=== PATIENT | male | born 1955 | race Caucasian/White ===

== ENCOUNTER → 2017-03-22 | Outpatient (REF) | payer OTHER ==
[2017-03-22 13:44] LABS: PERCENT SATURATION 36.4 % (19.7-37.4)
[2017-03-22 13:49] LABS: FOLATE 21.4 NG/ML (>5.4)
== END ==
LOC: M LAB REF 12:20
PROVIDERS: ATTEND Internal Medicine
DX: Z98.84 Bariatric surgery status (principal)

== ENCOUNTER 2017-05-02 03:08 | Emergency (ER) | payer OTHER ==
[~2017-05-02] VITALS: Ht 182.9 cm; Wt 115.7 kg
[2017-05-02] MEDS ORDERED: TETANUS/DIPHTHERIA TOX ADSORB ADULT 0.5ML SYR/VIAL (90714) IM ONE (03:30)
[2017-05-02] MEDS ORDERED: ceFAZolin SOD 1 GM in D5W MINI-BAG PLUS 50 ML IV ONE (03:30)
[2017-05-02 03:33] VITALS: BP 126/90
[2017-05-02] MEDS ORDERED: DERMABOND TOPICAL SKIN ADHESIVE TOP ONE (04:00)
[2017-05-02] MEDS ORDERED: LIDOCAINE W/EPINEPHRINE 1% 20ML VIAL SC ONE (04:00)
== END 2017-05-02 04:59 | disposition home or self-care (01) ==
LOC: EDBD 03:08 → M ED 04:52
DX: S41.111A Laceration without foreign body of right upper arm, initial encounter (principal); X99.9XXA Assault by unspecified sharp object, initial encounter; Y92.099 Unspecified place in other non-institutional residence as the place of occurrence of the external cause; Y93.9 Activity, unspecified; Y99.9 Unspecified external cause status; Z91.89 Other specified personal risk factors, not elsewhere classified
CPT/HCPCS: 12002; 90471; 90714; 96374; 99283; J0690

== ENCOUNTER 2018-06-27 15:20 | Emergency (ER) | payer OTHER ==
[2018-06-27] MEDS: ONDANSETRON 4MG/2ML VIAL (J2405) IV (16:16)
[2018-06-27] MEDS: NS 1,000 ML IV (16:16)
[2018-06-27 16:34] LABS: ANION GAP 11 MEQ/L (8-16); BLOOD UREA NITROGEN 15 MG/DL (7-18); CALCIUM LEVEL 9.1 MG/DL (8.8-10.2); CARBON DIOXIDE LEVEL 22 MEQ/L (21-32); CHLORIDE LEVEL 111 MEQ/L (98-107); CPK CREATINE PHOSPHOKINASE 123 U/L (39-308); CREATININE FOR GFR 1.41 MG/DL (0.70-1.30); GLOMERULAR FILTRATION RATE 54.4 (>49); GLUCOSE, FASTING 148 MG/DL (70-100); POTASSIUM SERUM 4.5 MEQ/L (3.5-5.1); SODIUM LEVEL 144 MEQ/L (136-145); TROPONIN I 0.06 NG/ML (< 0.10)
[2018-06-27 16:35] LABS: BASO # 0.1 10^3/uL (0.0-0.2); BASO % 0.5 % (0.0-1.0); CK-MB VALUE MASS 1.7 NG/ML (<3.6); EOS % 0.1 % (0.0-3.0); HEMATOCRIT 43.5 % (42.0-52.0); HEMOGLOBIN 14.4 g/dl (13.5-17.5); IMMATURE GRANULOCYTE % 0.4 % (0-3.0); LYMPH # 0.7 10^3/uL (1.5-4.5); LYMPH % 6.5 % (24.0-44.0); MB/CK RELATIVE INDEX 1.38 (< OR =4); MEAN CORPUSCULAR HEMOGLOBIN 31.2 pg (27.0-33.0); MEAN CORPUSCULAR HGB CONC 33.1 g/dl (32.0-36.5); MEAN CORPUSCULAR VOLUME 94.4 fl (80.0-96.0); MONO # 0.4 10^3/uL (0.0-0.8); MONO % 3.3 % (0.0-5.0); NEUTROPHILS # 10.1 10^3/uL (1.8-7.7); NEUTROPHILS % 89.2 % (36.0-66.0); PLATELET COUNT, AUTOMATED 219 10^3/uL (150-450); RED BLOOD COUNT 4.61 10^6/uL (4.30-6.10); RED CELL DISTRIBUTION WIDTH 13.1 % (11.5-14.5); WHITE BLOOD COUNT 11.3 10^3/uL (4.0-10.0)
[2018-06-27 16:55] LABS: KETONE, URINE AUTO RFX 2+ mg/dL (NEGATIVE); LEUKOCYTE ESTERASE UR AUTO RFX NEGATIVE (NEGATIVE); MUCUS, URINE RFX SMALL (NEGATIVE); NITRITE, URINE AUTO RFX NEGATIVE (NEGATIVE); RBC, URINE AUTO RFX 1 /HPF (0-3); SPECIFIC GRAVITY UR AUTO RFX 1.018 (1.002-1.035); SQUAM EPITHELIAL CELL UR AURFX 0 /HPF (0-6); WBC, URINE AUTO RFX 1 /HPF (0-3)
== END 2018-06-27 18:35 | disposition home or self-care (01) ==
LOC: M ED 15:20
DX: I48.91 Unspecified atrial fibrillation (principal); I10 Essential (primary) hypertension; E07.9 Disorder of thyroid, unspecified; N52.9 Male erectile dysfunction, unspecified; Z79.899 Other long term (current) drug therapy; Z79.82 Long term (current) use of aspirin; Z79.890 Hormone replacement therapy; Z91.048 Other nonmedicinal substance allergy status
CPT/HCPCS: J2405

== ENCOUNTER → 2021-04-14 | Outpatient (REF) | payer OTHER ==
[~2021-04-14] MED LIST: ASPI-1 PO; CART180C3 PO; DULO1CAP5 PO; LEVO150T7 PO; MULTTAB22 PO; MYCO500T PO; OMEP1CAP73 PO; VIAG100T PO; VITA50005 PO; ZOLP10TA2 PO
== END ==
LOC: M LAB REF 16:23
PROVIDERS: ATTEND Internal Medicine
DX: Z98.84 Bariatric surgery status (principal)

== ENCOUNTER 2021-09-27 09:48 | Day surgery (SDC) | payer MEDICARE, OTHER ==
[~2021-09-27] VITALS: Ht 185.4 cm; Wt 104.3 kg
--- OUTSIDE RECORDS SUMMARY | 2021-09-27 09:55 | CCD | Continuity of Care Document ---
Author Author Ollie Jm Florian Organization Unknown Address [address] [place] [address] Phone Unavailable Care Team Providers Care Pediatric Psychologist Name Role Phone Kirt Millan MD AUTM [phone] Ralph Bolivar MD AUTM [phone] Nikki Middleton MD AUTM [phone] Alfonzo Eastman JR, MD AUTM Unavailable Problems Active Problems Provider Date Atrial fibrillation Alfonzo Eastman MD Onset: 07/21/2012 Hypothyroidism Alfonzo Eastman MD Onset: 07/21/2012 Pure hypercholesterolemia Alfonzo Eastman MD Onset: 07/21 Insomnia Alfonzo Eastman MD Onset: 07/21/2012 Obstructive sleep apnea syndrome Alfonzo Eastman MD Onset : 07/21/2012 Obesity Alfonzo Eastman MD Onset: 07/21/2012 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 Myasthenia gravis Alfonzo Eastman MD Onset: 01/21/2014 Disorder of lung Alfonzo Eastman MD Onset: 01/21/2014 Note: Chest CT 10/10 Solitary Pulmonary Nodule On Radiological/Other Exam Alfonzo Eastman MD Onset: 01/23/2014 Social History Type Date Description Comments Sex Unknown ETOH Use Consumes 1 glass of wine per day Tobacco Use Start: Unknown Patient has never smoked Allergies and adverse reactions Active Allergies Criticality Reaction | Severity Comments Date Niaspan Unable to assess criticality 09/21/2010 Medications Active Medications SIG Qnty Indications Ordering Provide r Date Levothyroxine Sodium 50mcg Tablets 1 by mouth every day 90tabs Alfonzo Eastman MD 08/13/2020 Cartia XT 180mg Caps ER 24HR Take One Tablet By Mouth Every Day. 90caps Jessica Montes De Oca DO 05/08 Shingrix 50mcg/0.5ML Suspension Re c administer 0.5 milliliters intramuscular, repeat in 2 to 6 months 2units Alfonzo Eastman MD 01/05/2019 Clotrimazole/Betamethasone Dipropionate 1-0.05% Cream twice a day to rash on right great toe as needed 45gm Alfonzo Eastman MD 01/05/2019 Viagra 100mg Tablets Take 1/2 Tablet By Mouth as Directed 6tabs Alfonzo Eastman MD 10/19/20 16 Vitamin D3 Super Strength 2000Unit Tablets 1 by mouth every day 90tabs Juan Goetz 02/20/2016 Multivitamins Tablets 1 po q d Alfonzo Eastman MD 07/21/2012 Vitamin B-12 CR 1000mcg Tablets ER 1 po qd Alfonzo Eastman MD 07/21/2012 Calcium 500+D High Potency [id number] Tablets 1 po bid Alfonzo Eastman MD [address] 1 po qd 30tabs Alfonzo Eastman MD 07/21/[address] Take One Capsule By Mouth Twice A Day 60pablo Eastman MD 07/21/2012 Westcort 0.2% Ointment apply to affected area Tid For 10 Days 60gm Gena Lemon, NIMISHA 11/[address] Part take one capsule by mouth twice a day 60pablo Eastman MD 10/03/2008 Ambien 10mg Tablets take 1/2 -1 tablet by mouth at bedtime as needed maximum daily dose = 1 30tabs Alfonzo Eastman MD 03/29/2008 Mycophenolate Mofetil 500mg Tablet s twice daily Unknown Medications Administered in Office Medication SIG Qnty Indications Ordering Provider Date Immunization Adminstration,1 Vaccine/Tox oid Injection Alfonzo Eastman MD 2019 Depo-Medrol Injection Injection KAYLAH Alcantara 05/11/2017 Depo-Medrol Injection Injection Raúl CarmonaKAYLAH 08/20/2016 Administration Of Flu Vaccine Inj ection Alfonzo Eastman MD 11/01/2001 Immunizations CPT Code Status Date Vaccine Lot # [id number] Given 08/13/2020 Influenza Vaccin e Quadrivalent Preser/Antibiotic Free Im Use [id number] U-Flu Given 09/15/2019 Influenza,Unspecified 75639 Given 09/15/2019 Shingrix Zoster Vaccine (HZV), Recombinant, Subunit, Adjuvanted 00945 Given 09/29/2017 Influenza Vaccin e Quadrivalent Preser/Antibiotic Free Im Use [id number] Q2037 Given 09/02/2016 Fluvirin Virus Vaccine Q2037 Given 10/21/2015 Fluvirin Virus Vaccine 81349 01 Q2037 Given 09/14/2013 Fluvirin Virus Vaccine 44112 01 Q2037 Given 08/24/2012 Fluvirin Virus Vaccine 48306 Given 09/21/2010 Influenza Virus Vaccine 71643 Given 09/05/2009 Adacel- Tetanus Diphtheria P ertussis 99665 Given 09/04/2009 Influenza Virus Vaccine 69955 Given 10/03/2008 Influenza Virus Vaccine 15730 Given 03/28/2008 Zoster Vaccine 68566 Given 09/15/2007 Influenza Virus Vaccine 55802 Given 11/01/2001 Influenza Virus Vaccine Vital Signs Date Vital Result Comment 04/15/2021 2:57pm BP Systolic 112 mmHg BP Diastolic 68 mmHg Heart Rate 72 /min Height 72.25 inches 6'0.25" Weight 259.00 lb BMI (Body Mass Index) 34.9 kg/m2 12/16/2020 2:08pm Height 72.25 inches 6'0.25" Weight 273.00 lb BMI (Body Mass Index) 36.8 kg/m2 Results Test Acquired Date Facility Test Result H/L Range Note Laboratory test finding 09/15/2021 [facility] [employer] Digital Content Coordinator: SHANE Nielsen [id number] [phone] A1c <pending> Laboratory test finding 09/15/2021 [facility] [employer] Digital Content Coordinator: SHANE Nielsen [id number] [phone] TSH <pending> Vitamin B12 & Folate 04/14/2021 [facility] [address], [place] [id number] [phone] Vitamin B12 Level 477 pg/mL Normal 1 Folate 6.0 NG/ML Normal 2 Complete Blood Count 04/14/2021 [facility] [employer] [employer] Digital Content Coordinator: [place] [address] [phone] WBC 6.8 x10*3/UL 4.1 - 10.9 RBC 5.10 x10*6/UL 4.20 - 6.30 Hemoglobin 15.7 g/dL 12.0 - 18.0 Hematocrit 46.4 % 37.0 - 51.0 MCV 91.0 fL 80.0 - 97.0 MCH 30.8 pg 26.0 - 32.0 MCHC 33.8 g/dL 31.0 - 38.0 RDW 13.1 % 11.6 - 13.7 PLT 254 x10*3/UL 140 - 440 MPV 9.4 FL 7.8 - 11.0 Lymph % 19.7 % 10.0 - 58.5 Mid % 5.4 % 1.7 - 9.3 Neut % 74.9 % 37.0 - 92.0 Lymph # 1.3 x10*3/UL 0.6 - 4.1 Mid # 0.4 x10*3/UL 0.1 - 0.6 Neut # 5.1 x10*3/UL 2.0 - 7.8 A1c 04/14/2021 [facility] Digital Content Coordinator: [place] [address] [phone] Hba1c 5.6 % <5.7 3 Est Avg Glucose 114 mg/dL High 60 - 110 Comprehensive Chem Profile 04/14/2021 [facility] Digital Content Coordinator: [place] [address] [phone] Glucose 116 mg/dL High 74 - 99 4 BUN 14 mg/dL 7 - 18 Creatinine 1.4 mg/dL High 0.6 - 1.3 Sodium 143 mEq/L 136 - 145 Potassium 4.6 mEq/L 3.5 - 5.1 Chloride 107 mEq/L 98 - 107 Carbon Dioxide 27 mEq/L 21 - 32 Calcium 9.3 mg/dL 8.5 - 10.1 Alk. Phosphatase 93 mg/dL 46 - 116 Total Bilirubin 1.4 mg/dL High 0.2 - 1.0 Ast (Sgot) 35 U/L 15 - 37 Alt (SGPT) 47 U/L 12 - 78 Albumin 4.3 g/dL 3.4 - 5.0 Total Protein 7.8 g/dL 6.4 - 8.2 A/G Ratio 1.23 CALC 1.00 - 1.90 GFR 51 mL/min Low >60 GFR >= 60 mL/min >60 5 Laboratory test finding 04/14/2021 [facility] [employer] Digital Content Coordinator: [place] [address] [phone] Thyroid Stimulating Hormone 0.04 uIU/mL Low 0.3 6 - 3.74 Laboratory test finding 04/14/2021 [facility] [employer] Digital Content Coordinator: [place] [address] [phone] Vitamin D 25-Hydroxy 20.6 ng/ml Low 24.0 - 80.0 6 1 VITAMIN B12 NORMAL RANGE NORMAL 247 - 911 PG/ML INDETERMINATE 211 - 246 PG/ML DEFICIENT LESS THAN 211 PG/ML 2 FOLATE NORMAL RANGE NORMAL GREATER THAN 5.4 NG/ML INDETERMINATE 3.4-5.4 NG/ML DEFICIENT LESS THAN 3.4 NG/ML 3 Lab Result Notes: Pre-Diabetes 5.7 - 6.4 % Diabetes = or > 6.5% 4 100-125 mg/dL PRE-DIABET ES/FASTING >126 mg/dL DIABETES/FASTING 5 CHRONIC KIDNEY DISEASE STAGI NG PER NKF STAGE I & II GFR >= 60 NORMAL TO MILDLY DECREASED STAGE III GFR 30-59 MODERATELY DECREASED STAGE IV GFR 15-29 SEVERELY DECREASED STAGE V GFR <15 VERY LITTLE GFR LEFT ESRD GFR <15 ON PROJECT FACILITATOR 6 This test was performed [employer] Vitamin D immunoassay kit. Values obtained with different assay methods should not be used interchangeably. Procedures Date Code Description Status 04/15/2021 45236 Office/Outpatient Established Mo d MDM 30-39 Min Completed 04/15/2021 34550 EKG/Interpretation & Report Comp leted 09/19/2017 [id number] Colonoscopy Completed 10/12/2013 [id number] Colonoscopy Completed 10/24/2006 [id number] Colonoscopy Completed Medical Devices Description No Information Available Encounters Type Date Location Provider Dx Diagnosis Office Visit 04/15/2021 3:00p [facility] Alfonzo Eastman MD E03.9 Hypothyroidism, unspecified E78.00 Pure hypercholesterolemia, u nspecified R73.09 Other abnormal glucose I48.21 Permanent atrial fibrillatio n Z79.82 nursing home (current) use of a spirin G70.00 Myasthenia gravis without (a cute) exacerbation G47.33 Obstructive sleep apnea (fartun lt) (pediatric) Z91.14 Patient's other noncomplianc e with medication regimen E66.01 Morbid (severe) obesity due to excess calories Z68.35 Body mass index [BMI] 35.0-3 5.9, adult Assessments Date Code Description Provider 04/15/2021 E03.9 Hypothyroidism, unspecified Raphael cassidy Eastman MD 04/15/2021 E78.00 Pure hypercholesterolemia, unspe cified Alfonzo Eastman MD 04/15/2021 R73.09 Other abnormal glucose Alfonzo Eastman MD 04/15/2021 I48.21 Permanent atrial fibrillation Co llins Aditya Eastman MD 04/15/2021 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 Alfonzo Eastman MD 04/15/2021 G70.00 Myasthenia gravis without (acute ) exacerbation Alfonzo Eastman MD 04/15/2021 G47.33 Obstructive sleep apnea (adult) (pediatric) Alfonzo Eastman MD 04/15/2021 Z91.14 Patient's other noncompliance wi th medication regimen Alfonzo Eastman MD 04/15/2021 E66.01 Morbid (severe) obesity due to e xcess calories Alfonzo Eastman MD 04/15/2021 Z68.35 Body mass index [BMI] 35.0-35.9, adult Alfonzo Eastman MD 04/14/2021 Z98.84 Bariatric surgery status Alfonzo Eastman MD 04/14/2021 Z98.84 [facility] E78.00 Pure hypercholesterolemia, unspe cified Alfonzo Eastman MD 04/14/2021 E78.00 Pure hypercholesterolemia, unspe cified Lab Schedule 04/14/2021 R73.09 Other abnormal glucose Alfonzo Eastman MD 04/14/2021 R73.09 Other abnormal glucose Lab Sched ule 04/14/2021 I48.21 Permanent atrial fibrillation Co llcassidy Eastman MD 04/14/2021 I48.21 Permanent atrial fibrillation La b Schedule 04/14/2021 E55.9 Vitamin D deficiency, unspecifie d Alfonzo Eastman MD 04/14/2021 E55.9 Vitamin D deficiency, unspecifie d Lab Schedule Plan of Treatment No Information Available Functional Status Description No Information Available Mental Status Description No Information Available Referrals Refer to Reason for Referral Status Appt Date [facility] Pulmonary Medicine CONSULT FOR SLEEP STUDY FOR AMADO Closed [address] [place] [address] [phone]
--- OUTSIDE RECORDS SUMMARY | 2021-09-27 09:55 | CCD | Continuity of Care Document ---
Author Author mJ SMITH M.D. Organization Unknown Address [address] [place] [address] Phone [phone] Care Team Providers Care Physically Impaired Teacher Name Role Phone Alfonzo Eastman M.D. [facility] [phone] Problems Active Problems Provider Date Myasthenia gravis Nikki Smith M.D. Onset: 07/08/2014 Social History Type Date Description Comments Sex Unknown Tobacco Use Start: Unknown Patient has never smoked Allergies, Adverse Reactions, Alerts Active Allergies Criticality Reaction | Severity Comments Date NKDA Unable to assess criticality 07/08/2014 Adhesives Unable to assess criticality 07/08/2014 Medications Active Medications SIG Qnty Indications Ordering Provide r Date Omeprazole 20mg Capsules DR take one tab twice a day. 60caps Nikki Smith M.D. 05/13/2014 Pyridostigmine [place] 60mg Tablet s take one tablet three to four times per day as needed for weakness. 120tadevon Smith M.D. 10/22/2013 Cellcept 500mg Tablets take 1 tablets twice a day. 180tadevon Smith M.D. 10/22/2013 Immunizations Description No Information Available Vital Signs Date Vital Result Comment 08/17/2021 1:49pm Respiratory Rate 12 /min Height 72.5 inches 6'0.50" Weight 225.00 lb BMI (Body Mass Index) 30.1 kg/m2 Wing Body Weight 178 lb 05/04/2021 1:41pm Respiratory Rate 12 /min Height 72.5 inches 6'0.50" Weight 250.00 lb BMI (Body Mass Index) 33.4 kg/m2 Wing Body Weight 178 lb Results Description No Information Available Procedures Date Code Description Status 08/17/2021 00451 Office/Outpatient Established Mo d MDM 30-39 Min Completed 05/04/2021 05679 Office/Outpatient Established Mo d MDM 30-39 Min Completed Medical Devices Description No Information Available Encounters Type Date Location Provider Dx Diagnosis Office Visit 08/17/2021 1:30p [facility] Nikki wolf M.D. G70.00 Myasthenia gravis without (acute) exacer bation Office Visit 05/04/2021 1:30p [facility] Nikki wolf M.D. G70.00 Myasthenia gravis without (acute) exacer bation Assessments Date Code Description Provider 08/17/2021 G70.00 Myasthenia gravis without (acute ) exacerbation Nikki Smith M.D. 05/04/2021 G70.00 Myasthenia gravis without (acute ) exacerbation Nikki Smith M.D. Plan of Treatment Future Appointment(s):* 12/01/2021 11:45 am - Nikki Smith M.D. at [facility] Functional Status Description No Information Available Mental Status Description No Information Available Referrals Description No Information Available
--- OUTSIDE RECORDS SUMMARY | 2021-09-27 09:55 | CCD ---
Continuity of Care Document (CCD) Created on: 07/14/2021 Taylor Jm External Reference #: [id number] : [id number] Sex: Male Author Author Jm DASILVA DC Organization Unknown Address [address] [place] [address] [place] [address] Phone [phone] Care Team Providers Care Patron Attendant Name Role Phone Alfonzo Eastman MD [facility] [phone] Problems Description No Information Available Social History Type Date Description Comments Sex Unknown ETOH Use Currently consumes alcohol Tobacco Use Start: Unknown Patient has never smoked Tobacco Use Start: Unknown The Patient Has Never Vaped Smoking Status Reviewed: 06/28/21 The Patient Has Never Vaped Allergies, Adverse Reactions, Alerts Description No Known Drug Allergies Medications Active Medications SIG Qnty Indications Ordering Provide r Date Levothyroxine Sodium 150mcg Tablet s take one tab per day Unknown Cartia XT 180mg Caps ER 24HR daily Unknown Duloxetine HCL 30mg Caps DR Part bid Unknown Viagra 100mg Tablets use as d irected Unknown Zolpidem Tartrate 10mg Tablets 1 every night as needed Unknown Mycophenolate Mofetil 500mg Tablet s 2 tabs po bid Unknown History Medications Doxycycline Monohydrate 100mg Caps ules 1 cap by mouth twice a day for 10 days 20caps L03.312 Col wilmer Eastman JR., M.D. 06/28/2021 - 07/08/2021 Immunizations Description No Information Available Vital Signs Date Vital Result Comment 06/28/2021 8:11am BP Systolic 118 mmHg BP Diastolic 20 mmHg Heart Rate 81 /min Respiratory Rate 15 /min O2 % BldC Oximetry 100 % Body Temperature 96.6 F Weight 230.00 lb Height 72 inches 6'0" BMI (Body Mass Index) 31.2 kg/m2 Pain Level 1 06/27/2018 2:25pm BP Systolic 161 mmHg BP Diastolic 95 mmHg Heart Rate 64 /min Respiratory Rate 18 /min O2 % BldC Oximetry 98 % Body Temperature 101.0 F Weight 213.00 lb Height 72 inches 6'0" BMI (Body Mass Index) 28.9 kg/m2 Pain Level 8 Results Description No Information Available Procedures Date Code Description Status 06/28/2021 34185 Office/Outpatient Established Lo w MDM 20-29 Min Completed Medical Devices Description No Information Available Encounters Type Date Location Provider Dx Diagnosis Office Visit 06/28/2021 8:00a Main Office Lino Martin, PAlfonso R2 1 Rash and other nonspecific skin eruption L03.312 Cellulitis of back [any part except buttock] Assessments Date Code Description Provider 07/14/2021 Z20.828 Contact with and ([place] spected) exposure to other viral communicable diseases ALVARADO Villegas 06/28/2021 R21 Rash and other nonspecific skin eruption Ana PonceATrevor 06/28/2021 L03.312 Cellulitis of back [any part exc ept buttock] Chanel Ponce Plan of Treatment No Information Available Functional Status Description No Information Available Mental Status Description No Information Available Referrals Description No Information Available
--- OUTSIDE RECORDS SUMMARY | 2021-09-27 09:55 | CCD | Continuity of Care Document ---
Author Author Jm SMITH M.D. Organization Unknown Address [address] [place] [address] Phone [phone] Care Team Providers Care Electrical Hardware Engineer Name Role Phone Alfonzo Eastman M.D. [facility] [phone] Problems Active Problems Provider Date Myasthenia gravis [...] day. 60caps Nikki Smith M.D. 05/13/2014 Pyridostigmine [place] 60mg Tablet s take one tablet three to four times per day as needed for weakness. 120tadevon Smith M.D. 10/22/2013 Cellcept 500mg Tablets take 1 tablets twice a day. 180tadevon Smith M.D. 10/22/2013 Immunizations Description No Information Available Vital Signs Date Vital Result Comment 08/17/2021 1:49pm Respiratory Rate 12 /min Height 72.5 inches 6'0.50" Weight 225.00 lb BMI (Body Mass Index) 30.1 kg/m2 [place] Body Weight 178 lb 05/04/2021 1:41pm Respiratory Rate 12 /min Height 72.5 inches 6'0.50" Weight 250.00 lb BMI (Body Mass Index) 33.4 kg/m2 [place] Body Weight 178 lb Results Description No Information Available Procedures Date Code Description Status 08/17/2021 59675 Office/Outpatient Established Mo d MDM 30-39 Min Completed 05/04/2021 56694 Office/Outpatient Established Mo d MDM 30-39 Min Completed Medical Devices Description No Information Available Encounters Type Date Location Provider Dx Diagnosis Office Visit 08/17/2021 1:30p [place] [facility] [place] Nikki wolf M.D. G70.00 Myasthenia gravis without (acute) exacer bation Office Visit 05/04/2021 1:30p [facility] [place] Nikki wolf M.D. G70.00 Myasthenia gravis without (acute) exacer bation Assessments Date Code Description Provider 08/17/2021 G70.00 Myasthenia gravis without (acute ) exacerbation Nikki Smith M.D. 05/04/2021 G70.00 Myasthenia gravis without (acute ) exacerbation Nikki Smith M.D. Plan of Treatment No Information Available Functional Status Description No Information Available Mental Status Description No Information Available Referrals Description No Information Available
--- OUTSIDE RECORDS SUMMARY | 2021-09-27 09:55 | CCD | Continuity of Care Document ---
Author Author Jm WELLS F.N.P. Organization Unknown Address [address], [address] [place] [address] Phone [phone] Care Team Providers Care Front Office Representative Name Role Phone Alfonzo Eastman M.D. [facility] [phone] Problems Description No Information Available Social History Type Date Description Comments Sex Unknown Tobacco Use Start: Unknown Never Smoked Cigarettes ETOH Use Drinks 2 Alcoholic Beverages Per Day Sun Exposure moderate amount of sun exposure Sun Exposure Has never used tanning bed Sun Exposure Has experienced blistering from sunburns Sun Exposure Uses > 30 SPF Allergies and adverse reactions Active Allergies Criticality Reaction | Severity Comments Date Adhesives Unable to assess criticality 10/19/2010 Medications Active Medications SIG Qnty Indications Ordering Provide r Date Cymbalta Unknown Levothyroxine Sodium Unknown Zolpidem Tartrate Unknown 000 Aspirin Unknown Omeprazole Unknown Mycophenolate Mofetil 500mg Tablet s Take One Tablet By Mouth Twice A Day Unknown Duloxetine HCL 30mg Caps DR Part Take One Capsule By Mouth Twice A Day Unknown Immunizations Description No Information Available Vital Signs Date Vital Result Comment 08/25/2021 11:49am BP Systolic 147 mmHg BP Diastolic 95 mmHg Heart Rate 75 /min Weight 225.00 lb 11/05/2019 1:58pm BP Systolic 130 mmHg BP Diastolic 78 mmHg Results Description No Information Available Procedures Date Code Description Status 08/25/2021 81711 Office/Outpatient Established Mo d MDM 30-39 Min Completed Medical Devices Description No Information Available Encounters Type Date Location Provider Dx Diagnosis Office Visit 08/25/2021 12:00p Main Office Rose Marie O'caprice, F.N.P. D22.5 Melanocytic nevi of trunk L81.4 Other melanin hyperpigmentat ion D17.1 Benign lipomatous neoplasm o f skin, subcu of trunk Z12.83 Encounter for screening for malignant neoplasm of skin Assessments Date Code Description Provider 08/25/2021 D22.5 Melanocytic nevi of trunk Kayla Pastranajared [facility] 08/25/2021 D22.5 Melanocytic nevi of trunk Sade Wells, F.N.P. 08/25/2021 L81.4 Other melanin hyperpigmentation Kayla Pastranajared [facility] 08/25/2021 L81.4 Other melanin hyperpigmentation Rose Marie Wells, F.N.P. 08/25/2021 D17.1 Benign lipomatous ne oplasm of skin and subcutaneous tissue of trunk Kayla Pastranajared [facility] 08/25/2021 D17.1 Benign lipomatous ne oplasm of skin and subcutaneous tissue of trunk Rose Marie Wells, F.N.P. 08/25/2021 Z12.83 Encounter for screening for prabhakar gnant neoplasm of skin Kayla Pastranaend, [facility]- 08/25/2021 Z12.83 Encounter for screening for prabhakar gnant neoplasm of skin Rose Marie Wells, F.N.P. Plan of Treatment Future Appointment(s):* 2022 12:45 pm - Rose Marie Wells F.N.P. at Main Office 08/25/2021 - Rose Marie Wells, F.N.P.* D22.5 Melanocytic nevi of trunk* Comments:* Nevus on back appears healthy. Monitor for changes. DF - reassurance. Sun protection and sunscreen use discussed. Literature given on monthly self skin evaluations. Should any moles change in shape or color, itch, bleed or burn, pt will contact office for evaluation sooner than their interval appointment. * L81.4 Other melanin hyperpigmentation* Comments:* Solar lentigines - reassurance.Discussed that solar lentignes appear from the sun that was received years ago. * D17.1 Benign lipomatous neoplasm of skin and subcutaneous tissue of trunk* Comments:* Discussed diagnosis.Nonsymptomatic - reassurance.Call with any problems. * Z12.83 Encounter for screening for malignant neoplasm of skin* Comments:* See above. * Follow up:* Yearly/PRN- [facility] Functional Status Description No Information Available Mental Status Description No Information Available Referrals Description No Information Available"
--- OUTSIDE RECORDS SUMMARY | 2021-09-27 09:55 | CCD ---
Author Author Kirt Millan MD [facility] Organization Kirt Millan MD [facility] Address [address] [address] Phone Care Team Providers Care Retail Solar Advisor Name Role Phone Monty BOJORQUEZ, CHARISMA, Kirt Kumari Unavailable [phone] Raiza BOSTON MD, Alfonzo [place] PP [phone] Reason for Referral No Reason for Referral Recorded Problems Includes: Active, inactive, and resolved Problems All Visits Onset Date - Time Resolved Date - Time Provider Co ndition Status Vitreous Disorders Degeneration 10/09/2015 - 12:00AM Kirt Millan MD, FACS Active Vitreous Floaters Both Eyes 09/30/2014 - 12:00AM Kirt Millan MD, FACS Inactive Note: Unchanged Eyelid Dermatochalasis Both Eyes 02/14/2014 - 12:00AM Kirt Millan MD, FACS Inactive Note: Unchanged - upper lids Myasthenia Gravis 10/18/2013 - 12:00AM Kirt Mckeon MD, FACS Active Note: Unchanged Strabismus Non-paralytic Hypertropia Intermittent Left Eye 0 07/12/2013 - 12:00AM Unknown - Unknown Kirt Millan MD, FACS Resolved Note: Unchanged Strabismus Paralytic Fourth Nerve Palsy Left Eye 07/12/2013 - 12:00AM Unknown - Unknown Kirt Millan MD, FACS Resolved Note: Unchanged Conjunctivitis Chronic Allergic 03/21/2013 - 12:00AM Kirt Millan MD, FACS Active Note: Unchanged Presbyopia 03/21/2013 - 12:00AM Kirt Millan MD, FACS Active Note: Unchanged Strabismus Non-paralytic Heterophoria Esophoria 03/21/2013 - 12:00AM Unknown - Unknown Kirt Millan MD, FACS Resolved Note: Unchanged Dry Eye Syndrome Both Eyes 03/21/2013 - 12:00AM Kirt Millan MD, FACS Active Note: Unchanged Plan of Treatment Future Appointments Date Time Location Provider 1 Year Follow-Up 10/13/2021 8:15AM Kirt Millan MD [facility] Kirt Millan MD, FACS Findings Encounter Date Ordered Transition in care, clinical summary provided 1 Month Follow-Up with Kirt Millan MD, FACS 07/12/2013 Requested Referred to: Dr. Barrow- Neurologist (Referr ing Out Letter re-faxed) 1 Month Follow-Up with Kirt Millan MD, FACS 07/12/2013 Ordered referred to primary care physician Dr. Jim pinto- MRI Brain 3 MO FOLU OR LESS with Kirt Millan MD, FACS 06/12/2013 Ordered Transition in care, clinical summary provided 3 MO FOLU OR LESS with Kirt Millan MD, FACS 06/12/2013 Requested Referred to: Dr. Bolivar / Danial 3 MO FOLU OR L ESS with Kirt Mckeon MD, FACS 06/12/2013 Assessments Includes: Assessments for all patient encounters Findings Encounter Date Chronic allergic conjunctivitis 1 Year Follow-Up with Kirt Millan MD, FACS 10/10/2020 Dry eye syndrome of both eyes 1 Year Follow-Up with yAush Millan MD, FACS 10/10/2020 Myasthenia gravis 1 Year Follow-Up with Kirt paul MD, FACS 10/10/2020 Vitreous degeneration 1 Year Follow-Up with Kirt brown MD, FACS 10/10/2020 Chronic allergic conjunctivitis 1 Year Follow-Up with Kirt Millan MD, FACS 10/08/2019 Dry eye syndrome of both eyes 1 Year Follow-Up with Ayush Millan MD, FACS 10/08/2019 Myasthenia gravis 1 Year Follow-Up with Kirt paul MD, FACS 10/08/2019 Chronic allergic conjunctivitis 1 Year Follow-Up with Kirt Millan MD, FACS 10/17/2018 Dry eye syndrome of both eyes 1 Year Follow-Up with Ayush Millan MD, FACS 10/17/2018 Myasthenia gravis 1 Year Follow-Up with Kirt paul MD, FACS 10/17/2018 Chronic allergic conjunctivitis 1 Year Follow-Up with Kirt Millan MD, FACS 10/14/2016 Dry eye syndrome of both eyes 1 Year Follow-Up with Ayush Millan MD, FACS 10/14/2016 Vitreous degeneration 1 Year Follow-Up with Kirt brown MD, FACS 10/14/2016 Chronic allergic conjunctivitis 1 Year Follow-Up with Kirt Millan MD, FACS 10/09/2015 Dry eye syndrome of both eyes 1 Year Follow-Up with Ayush Millan MD, FACS 10/09/2015 Myasthenia gravis 1 Year Follow-Up with Kirt paul MD, FACS 10/09/2015 Vitreous degeneration 1 Year Follow-Up with Kirt brown MD, FACS 10/09/2015 Chronic allergic conjunctivitis 6 Month Follow-Up with Kirt Millan MD, FACS 09/30/2014 Dermatochalasis of both eyes of both upper eyelids 6 Month Follow-Up with Kirt Millan MD, FACS 09/30/2014 Dry eye syndrome of both eyes 6 Month Follow-Up with Mohan Millan MD, FACS 09/30/2014 Myasthenia gravis 6 Month Follow-Up with Kirt chery MD, FACS 09/30/2014 Vitreous floaters in both eyes 6 Month Follow-Up with Kirt Millan MD, FACS 09/30/2014 Dermatochalasis of both eyes 4 Month Follow-Up with Ayush Millan MD, FACS 02/14/2014 Esophoria 4 Month Follow-Up with Kirt chery MD, FACS 02/14/2014 Myasthenia gravis 4 Month Follow-Up with Kirt chery MD, FACS 02/14/2014 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 3 MO FOLU O R LESS with Kirt Millan MD, FACS 10/18/2013 Myasthenia gravis 3 MO FOLU OR LESS with Kirt chery MD, FACS 10/18/2013 Dermatochalasis of both eyes 1 Month Follow-Up with Ayush Millan MD, FACS 07/12/2013 Esophoria of both eyes 1 Month Follow-Up with Kirt Hunter MD, FACS 07/12/2013 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 1 Month Fol low-Up with Kirt Millan MD, FACS 07/12/2013 Intermittent hypertropia of the left eye 1 Month Follo w-Up with Kirt Mckeon MD, FACS 07/12/2013 Intermittent hypertropia of the left eye 3 MO FOLU OR LESS with Kirt Mckeon MD, FACS 06/12/2013 Chronic allergic conjunctivitis 6 Month Follow-Up with Kirt Millan MD, FACS 03/21/2013 Dermatochalasis of both eyes 6 Month Follow-Up with Ayush Millan MD, FACS 03/21/2013 Dermatochalasis of the left upper eyelid 6 Month Follo w-Up with Kirt Mckeon MD, FACS 03/21/2013 Dermatochalasis of the right upper eyelid 6 Month Foll ow-Up with Kirt Mckeon MD, [facility] 03/21/2013 Dry eye syndrome of both eyes 6 Month Follow-Up with Mohan Millan MD, FACS 03/21/2013 Esophoria 6 Month Follow-Up with Kirt chery MD, [facility] 03/21/2013 Presbyopia 6 Month Follow-Up with Kirt chery MD, [facility] 03/21/2013 Vitreous floaters in both eyes 6 Month Follow-Up with Kirt Millan MD, [facility] 03/21/2013 Instructions Instructions not supported for this document typeNo Instructions Recorded Medical Equipment - Implanted Devices Includes: Current and historical DevicesNo Medical Equipment Recorded Medications Includes: Current and historical Medications Current Medications (continue as prescribed) Mycophenolate Mofetil 500 MG Tablet 10/09/2015 Prov ider: Diagnosis: Omeprazole 20 MG Tablet Delayed Release 10/09/2015 Provider: Diagnosis: Cymbalta 30 MG OR CPEP 03/21/2013 Provider: Diagnosis: Aspirin 325 MG OR TABS 03/21/2013 Provider: Diagnosis: Zolpidem Tartrate 10 MG OR TABS 03/21/2013 Provider : Diagnosis: Levothyroxine Sodium 50 MCG OR TABS 03/21/2013 Prov ider: Diagnosis: Vitamin D2 10 MCG (400 UNIT) OR TABS 03/21/2013 Pro vider: Diagnosis: 1.25 mg per month Past Medications on file Omeprazole 20 MG OR TBEC 03/21/2013 - 10/09/2015 Provider: Diagnosis: Medications Administered Includes: Administered Medications in patient's chartNo Administered Medications Recorded Vital Signs Includes: Vital Signs from 08/22/2020 through 08/22/2021No Vital Signs Recorded For Specified Dates Results Includes: Results from 08/22/2020 through 08/22/2021No Results Recorded For Specified Dates History of Present Illness History of Present Illness not supported for this document typeNo History of Present Illness Recorded Social History Description Last Updated Not using alcohol 10/10/2020 No tobacco use 10/10/2020 Not using drugs 10/10/2020 Smoking status : Never smoker 10/10/2020 Never smoked 10/08/2019 Alcohol 03/21/2013 Procedures and Surgical History Includes: Procedures from 08/22/2020 through 08/22/2021 Procedures Code Diagnosis Performing Provider Service Location Service Date Intermediate Eye Exam Established Patient [id number] Myasthenia gravis without (acute) exacerbation, Other chronic allergic conjunctivitis, Dry eye syndrome of bilateral lacrimal glands, Vitreous degeneration, bilateral Kirt Millan MD, FACS Kirt Millan MD [facility] 10/10/2020 Surgical History Last Updated Surgical / procedural history : Gastric Bypass (2009), Appendectomy, Fissure Surgery 10/08/2019 Medical History Includes: Medical History in patient's chart Description Last Updated Reported medical history : Myasthenia Gr natan, A-Fib controlled with ASA, Sleep Apnea with CPAP, Depression, Deviated Septum, Reflux 12/13/2014 No recent change in medical history 02/14/2014 Currently wearing eyeglasses 10/18/2013 History of hypothyroidism 10/18/2013 LASIK surgery both eyes 07/12/2013 Gastric Bypass - 2009 ~Appendectomy ~Fissure Surgery 03/21/2013 History of arthritis 03/21/2013 Family History Includes: Family History in patient's chart Description Last Updated Maternal history of cataract 10/10/2020 Paternal history of arthritis 10/10/2020 Paternal history of diabetes mellitus 10/10/2020 Paternal history of family history of cancer 0 Paternal history of heart disease 10/10/2020 Paternal history of hypertension 10/10/2020 Maternal history of arthritis 10/09/2015 Family history of diabetes mellitus 12/13/2014 Family history of heart disease 12/13/2014 Family history of hypertension 12/13/2014 Review of Systems Review of Systems not supported for this document typeNo Review of Systems Recorded Mental Status Mental Status not supported for this document type Description Oriented to time, place, and person Functional Status Functional Status not supported for this document typeNo Functional Status Recorded Physical Exam Physical Exam not supported for this document typeNo Physical Exam Recorded Immunizations Includes: Immunizations in patient's chartNo Immunizations Recorded Allergies Includes: Active, inactive, and resolved AllergiesNo Known Allergies Encounters Includes: Encounters from 08/22/2020 through 08/22/2021 Encounter Provider Location Date Check-In Time Check-Out Time D iagnosis 1 Year Follow-Up Kirt Millan MD, FACS Kirt Preston [facility] 10/10/2020 7:59AM 8:53AM Myasthenia Gravis, C onjunctivitis Chronic Allergic, Dry Eye Syndrome Both Eyes, Vitreous Disorders Degeneration Insurance Includes: Active Insurance Policies Plan Name Member ID Group # Subscriber Relationship Effective Da [address] [id number] Jm Anton cer Self Advance Directives Includes: Current Advance DirectivesNo Advance Directives Recorded Health Concerns Includes: Active Health ConcernsNo Active Health Concerns Recorded Goals Includes: Active GoalsNo Active Goals Recorded Interventions Includes: Interventions for active GoalsNo Interventions Recorded Evaluations & Outcomes Includes: Evaluations & Outcomes for active GoalsNo Outcomes Recorded
--- OUTSIDE RECORDS SUMMARY | 2021-09-27 09:55 | CCD ---
Continuity of Care Document (CCD) Created on: 07/14/2021 Taylor Jm External Reference #: [id number] : [id number] Sex: Male Author Author Jm DASILVA [place] Organization Unknown Address [address] [place] [address] [place] [address] Phone [phone] Care Team Providers Care Director Of Communications Name Role Phone Alfonzo Eastman MD [facility] [phone] Problems Description No Information Available Social History [...] Available Procedures Date Code Description Status 06/28/2021 07125 Office/Outpatient Established Lo w MDM 20-29 Min Completed Medical Devices Description No Information Available Encounters Type Date Location Provider Dx Diagnosis Office Visit 06/28/2021 8:00a Main Office Chanel Ponce R2 1 Rash and other nonspecific skin eruption L03.312 Cellulitis of back [any part except buttock] Assessments Date Code Description Provider 06/28/2021 R21 Rash and other nonspecific skin eruption Chanel Ponce 06/28/2021 L03.312 Cellulitis of back [any part exc ept buttock] Chanel Ponce Plan of Treatment 06/28/2021 - Paramjit Ponce.* R21 Rash and other nonspecific skin eruption* Comments:* see below * L03.312 Cellulitis of back [any part except buttock]* New Medication:* Doxycycline Monohydrate 100 mg - 1 cap by mouth twice a day for 10 days * Comments:* will cover for skin and soft tissue infections with doxycycline due it its coverage for tick-borne pathogens as he has had multiple tick bitesSigns/symptoms of worsening infection discussedSigns/symptoms of Lyme and other tick-borne disease discussedReturn or to PCP for any concernsPatient voiced understanding and agrees to treatment plan Functional Status Description No Information Available Mental Status Description No Information Available Referrals Description No Information Available
--- OUTSIDE RECORDS SUMMARY | 2021-09-27 09:56 | CCD ---
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 Name Role Phone VIDYA, Yesenia CHILDERS Unavailable Unavailable LETTIERE, Yesenia CHILDERS Unavailable Unavailable LETTIERE, Yesenia CHILDERS Unavailable Unavailable LETTIERE, Yesenia CHILDERS Unavailable Unavailable LETTIERE, Yesenia CHILDERS Unavailable Unavailable LETTIERE, Yesenia CHILDERS Unavailable Unavailable LETTIERE, Yesenia CHILDERS Unavailable Unavailable LETTIERE, Yesenia BROWNE PA Unavailable Unavailable LETTIERE, Yesenia BROWNE PA Unavailable Unavailable LETTIERE, A HOLLIE PA Unavailable Unavailable LETTIERE, Yesenia BROWNE PA Unavailable Unavailable LETTIERE, Yesenia BROWNE PA Unavailable Unavailable LETTIERE, Yesenia BROWNE PA Unavailable Unavailable LETTIERE, Yesenia BROWNE PA Unavailable Unavailable LETTIERE, Yesenia BROWNE PA Unavailable Unavailable LETTIERE, Yesenia BROWNE PA Unavailable Unavailable LETTIERE, A HOLLIE PA Unavailable Unavailable LETTIERE, Yesenia BROWNE PA Unavailable Unavailable LETTIERE, Yesenia BROWNE PA Unavailable Unavailable LETTIERE, Yesenia BROWNE PA Unavailable Unavailable LETTIERE, Yesenia BROWNE PA Unavailable Unavailable LETTIERE, A HOLLIE PA Unavailable Unavailable LETTIERE, A HOLLIE PA Unavailable Unavailable LETTIERE, A HOLLIE PA Unavailable Unavailable LETTIERE, A HOLLIE PA Unavailable Unavailable LETTIERE, Yesenia BROWNE PA Unavailable Unavailable LETTIERE, Yesenia BROWNE PA Unavailable Unavailable LETTIERE, Yesenia BROWNE PA Unavailable Unavailable LETTIERE, Yesenia BROWNE PA Unavailable Unavailable LETTIERE, Yesenia BROWNE PA Unavailable Unavailable LETTIERE, Yesenia BROWNE PA Unavailable Unavailable Darvin Eastman MD Unavailable Unavailable Darvin Eastman MD Unavailable Unavailable Darvin Eastman MD Unavailable Unavailable Darvin Eastman MD Unavailable Unavailable Darvin Eastman MD Unavailable Unavailable [place] MD Unavailable Unavailable [place] MD Unavailable Unavailable RaizaDarvin MD Unavailable Unavailable RaizaDarvin MD Unavailable Unavailable [place] MD Unavailable Unavailable [place] MD Unavailable Unavailable RaizaDarvin MD Unavailable Unavailable [place]Darvin MD Unavailable Unavailable RaizaDarvin MD Unavailable Unavailable [place]Darvin MD Unavailable Unavailable [place]Dar[place] MD Unavailable Unavailable RaizaDarvin MD Unavailable Unavailable RaizaDarvin MD Unavailable Unavailable RaizaDarvin MD Unavailable Unavailable RaizaDarvin MD Unavailable Unavailable [place]Darvin MD Unavailable Unavailable [place]Darvin MD Unavailable Unavailable RaizaDarvin MD Unavailable Unavailable [place]Dar[place] MD Unavailable Unavailable [place]Dar[place] MD Unavailable Unavailable [place]Dar[place] MD Unavailable Unavailable [place]Darvin MD Unavailable Unavailable [place]Darvin MD Unavailable Unavailable RaizaDarvin MD Unavailable Unavailable [place]Darvin MD Unavailable Unavailable [place]Darvin MD Unavailable Unavailable RaizaDarvin MD Unavailable Unavailable RaizaDarvin MD Unavailable Unavailable [place]Darvin MD Unavailable Unavailable [place]Darvin MD Unavailable Unavailable RaizaDarvin MD Unavailable Unavailable RaizaDarvin MD Unavailable Unavailable [place]Darvin MD Unavailable Unavailable RaizaDarvin MD Unavailable Unavailable RaizaDarvin MD Unavailable Unavailable [place]Darvin pinto MD Unavailable Unavailable [place]Darvin MD Unavailable Unavailable RaizaDarvin MD Unavailable Unavailable [place]Darvin MD Unavailable Unavailable [place]Darvin MD Unavailable Unavailable RaizaDarvin MD Unavailable Unavailable [place]Darvin MD Unavailable Unavailable [place]Darvin pinto MD Unavailable Unavailable RaizaDarvin MD Unavailable Unavailable RaizaDarvin MD Unavailable Unavailable [place]Darvin MD Unavailable Unavailable RaizaDarvin MD Unavailable Unavailable [place]Darvin MD Unavailable Unavailable [place]Darvin MD Unavailable Unavailable RaizaDarvin MD Unavailable Unavailable [place]Darvin MD Unavailable Unavailable RaizaDarvin MD Unavailable Unavailable [place]Darvin MD Unavailable Unavailable RaizaDarvin MD Unavailable Unavailable RaizaDarvin MD Unavailable Unavailable [place]Darvin pinto MD Unavailable Unavailable [place]Darvin pinto MD Unavailable Unavailable [place]vin pinto MD Unavailable Unavailable RaizaDarvin pinto MD Unavailable Unavailable [place]Darvin pinto MD Unavailable Unavailable [place]Darvin MD Unavailable Unavailable RaizaDarvin MD Unavailable Unavailable RaizaDarvin pinto MD Unavailable Unavailable [place]Darvin pinto MD Unavailable Unavailable RaizaDarvin MD Unavailable Unavailable RaizaDarvin pinto MD Unavailable Unavailable RaizaDarvin MD Unavailable Unavailable RaizaDarvin MD Unavailable Unavailable RaizaDarvin pinto MD Unavailable Unavailable [place]Darvin MD Unavailable Unavailable [place]vin pinto MD Unavailable Unavailable RaizaDarvin MD Unavailable Unavailable RaizaDarvin MD Unavailable Unavailable RaizaDarvin MD Unavailable Unavailable [place]vin pinto MD Unavailable Unavailable RaizaDarvin pinto MD Unavailable Unavailable [place]vin pinto MD Unavailable Unavailable [place]Darvin pinto MD Unavailable Unavailable RaizaDarvin pinto MD Unavailable Unavailable RaizaDarvin pinto MD Unavailable Unavailable GreenvilleDarvin pinto MD Unavailable Unavailable Sierra, Ros STUDIO COUCH FRAME BUILDER Unavailable Unavailable Sierra, Ros STUDIO COUCH FRAME BUILDER Unavailable Unavailable Sierra, Ros STUDIO COUCH FRAME BUILDER Unavailable Unavailable Sierra, Ros STUDIO COUCH FRAME BUILDER Unavailable Unavailable Sierra, Ros STUDIO COUCH FRAME BUILDER Unavailable Unavailable Sierra, Ros STUDIO COUCH FRAME BUILDER Unavailable Unavailable Sierra, Ros STUDIO COUCH FRAME BUILDER Unavailable Unavailable Sierra, Ros STUDIO COUCH FRAME BUILDER Unavailable Unavailable Sierra, Ros STUDIO COUCH FRAME BUILDER Unavailable Unavailable Sierra, Ros STUDIO COUCH FRAME BUILDER Unavailable Unavailable Sierra, Ros STUDIO COUCH FRAME BUILDER Unavailable Unavailable Sierra, Ros STUDIO COUCH FRAME BUILDER Unavailable Unavailable Sierra, Ros STUDIO COUCH FRAME BUILDER Unavailable Unavailable Sierra, Ros STUDIO COUCH FRAME BUILDER Unavailable Unavailable Sierra, Ros STUDIO COUCH FRAME BUILDER Unavailable Unavailable Sierra, Ros STUDIO COUCH FRAME BUILDER Unavailable Unavailable Sierra, Ros STUDIO COUCH FRAME BUILDER Unavailable Unavailable Sierra, Ros STUDIO COUCH FRAME BUILDER Unavailable Unavailable Sierra, Ros STUDIO COUCH FRAME BUILDER Unavailable Unavailable Sierra, Ros STUDIO COUCH FRAME BUILDER Unavailable Unavailable Sierra, Ros STUDIO COUCH FRAME BUILDER Unavailable Unavailable Sierra, Ros STUDIO COUCH FRAME BUILDER Unavailable Unavailable Sierra, Ros STUDIO COUCH FRAME BUILDER Unavailable Unavailable Sierra, Ros STUDIO COUCH FRAME BUILDER Unavailable Unavailable Sierra, Ros STUDIO COUCH FRAME BUILDER Unavailable Unavailable Sierra, Ros STUDIO COUCH FRAME BUILDER Unavailable Unavailable Sierra, Ros STUDIO COUCH FRAME BUILDER Unavailable Unavailable Sierra, Ros STUDIO COUCH FRAME BUILDER Unavailable Unavailable Sierra, Ros STUDIO COUCH FRAME BUILDER Unavailable Unavailable Sierra, Ros STUDIO COUCH FRAME BUILDER Unavailable Unavailable Sierra, Ros STUDIO COUCH FRAME BUILDER Unavailable Unavailable Sierra, Ros STUDIO COUCH FRAME BUILDER Unavailable Unavailable Sierra, Ros STUDIO COUCH FRAME BUILDER Unavailable Unavailable Sierra, Ros STUDIO COUCH FRAME BUILDER Unavailable Unavailable Sierra, Ros STUDIO COUCH FRAME BUILDER Unavailable Unavailable Sierra, Ros STUDIO COUCH FRAME BUILDER Unavailable Unavailable WINNIE, ADELAIDA PA Unavailable Unavailable WINNIE, ADELAIDA PA Unavailable Unavailable WINNIE, ADELAIDA PA Unavailable Unavailable WINNIE, ADELAIDA PA Unavailable Unavailable WINNIE, ADELAIDA PA Unavailable Unavailable WINNIE, ADELAIDA PA Unavailable Unavailable WINNIE, ADELAIDA PA Unavailable Unavailable WINNIE, ADELAIDA PA Unavailable Unavailable WINNIE, ADELAIDA PA Unavailable Unavailable WINNIE, ADELAIDA PA Unavailable Unavailable WINNIE, ADELAIDA PA Unavailable Unavailable WINNIE, ADELAIDA PA Unavailable Unavailable WINNIE, ADELAIDA PA Unavailable Unavailable WINNIE, ADELAIDA PA Unavailable Unavailable WINNIE, ADELAIDA PA Unavailable Unavailable WINNIE, ADELAIDA PA Unavailable Unavailable WINNIE, ADELAIDA PA Unavailable Unavailable WINNIE, ADELAIDA PA Unavailable Unavailable WINNIE, ADELAIDA PA Unavailable Unavailable WINNIE, ADELAIDA PA Unavailable Unavailable WINNIE, ADELAIDA PA Unavailable Unavailable WINNIE, ADELAIDA PA Unavailable Unavailable WINNIE, ADELAIDA PA Unavailable Unavailable WINNIE, ADELAIDA PA Unavailable Unavailable WINNIE, ADELAIDA PA Unavailable Unavailable WINNIE, ADELAIDA PA Unavailable Unavailable WINNIE, ADELAIDA PA Unavailable Unavailable WINNIE, ADELAIDA PA Unavailable Unavailable WINNIE, ADELAIDA PA Unavailable Unavailable WINNIE, ADELAIDA PA Unavailable Unavailable WINNIE, ADELAIDA PA Unavailable Unavailable WINNIE, ADELAIDA PA Unavailable Unavailable WINNIE, ADELAIDA PA Unavailable Unavailable WINNIE, ADELAIDA PA Unavailable Unavailable WINNIE, ADELAIDA PA Unavailable Unavailable WINNIE, ADELAIDA PA Unavailable Unavailable Sorenson Mckeon, Yesenia Moralez MD, FACS Unavailable Unavailable Sorenson Mckeon, Yesenia Moralez MD, FACS Unavailable Unavailable Sorenson Mckeon, Yesenia Moralez MD, FACS Unavailable Unavailable Sorenson Mckeon, Yesenia Moralez MD, FACS Unavailable Unavailable Sorenson Mckeon, Yesenia Moralez MD, FACS Unavailable Unavailable Sorenson Mckeon, Yesenia Moralez MD, FACS Unavailable Unavailable Sorenson Mckeon, Yesenia Moralez MD, FACS Unavailable Unavailable Sorenson Mckeon, Yesenia Moralez MD, FACS Unavailable Unavailable Sorenson Mckeon, Yesenia Moralez MD, FACS Unavailable Unavailable Sorenson Mckeon, Yesenia Moralez MD, FACS Unavailable Unavailable Sorenson Mckeon, Yesenia Moralez MD, FACS Unavailable Unavailable Sorenson Mckeon, Yesenia Moralez MD, FACS Unavailable Unavailable Sorenson Mckeon, Yesenia Moralez MD, FACS Unavailable Unavailable Sorenson Mckeon, Yesenia Moralez MD, FACS Unavailable Unavailable Sorenson Mckeon, Yesenia Moralez MD, FACS Unavailable Unavailable Sorenson Mckeon, Yesenia Moralez MD, FACS Unavailable Unavailable Sorenson Mckeon, Yesenia Moralez MD, FACS Unavailable Unavailable Sorenson Mckeon, Yesenia Moralez MD, FACS Unavailable Unavailable Sorenson Mckeon, Yesenia Moralez MD, FACS Unavailable Unavailable Sorenson Mckeon, Yesenia Moralez MD, FACS Unavailable Unavailable Sorenson Mckeon, Yesenia Moralez MD, FACS Unavailable Unavailable Sorenson Mckeon, Yesenia Moralez MD, FACS Unavailable Unavailable Sorenson Mckeon, Yesenia Moarlez MD, FACS Unavailable Unavailable Sorenson Mckeon, Yesenia Moralez MD, FACS Unavailable Unavailable Sorenson Mckeon, Yesenia Moralez MD, FACS Unavailable Unavailable Sorenson Mckeon, Yesenia Moralez MD, FACS Unavailable Unavailable Sorenson Mckeon, Yesenia Moralez MD, FACS Unavailable Unavailable Sorenson Mckeon, Yesenia Moralez MD, FACS Unavailable Unavailable Sorenson Mckeon, Yesenia Moralez MD, FACS Unavailable Unavailable Sorenson Mckeon, Yesenia Moralez MD, FACS Unavailable Unavailable Sorenson Mckeon, Yesenia Moralez MD, FACS Unavailable Unavailable Sorenson Mckeon, Yesenia Moralez MD, FACS Unavailable Unavailable Sorenson Mckeon, Yesenia Moralez MD, FACS Unavailable Unavailable Sorenson Mckeon, Yesenia Moralez MD, FACS Unavailable Unavailable Sorenson Mckeon, Yesenia Moralez MD, FACS Unavailable Unavailable Sorenson Mckeon, Yesenia Moralez MD, FACS Unavailable Unavailable Sorenson Mckeon, Yseenia Moralez MD, FACS Unavailable Unavailable Sorenson Mckeon, Yesenia Moralez MD, FACS Unavailable Unavailable Sorenson Mckeon, Yesenia Moralez MD, FACS Unavailable Unavailable Emi, Yojana Jordan MD Unavailable Unavailable Emi, Yojana Jordan MD Unavailable Unavailable Emi, Yojana Jordan MD Unavailable Unavailable Emi, Yojana Jordan MD Unavailable Unavailable Emi, Yojana Jordan MD Unavailable Unavailable Emi, Yojana Jordan MD Unavailable Unavailable Emi, Yojana Jordan MD Unavailable Unavailable Emi, Yojana Jordan MD Unavailable Unavailable Emi, O Samah MD Unavailable Unavailable Yojana Middleton MD Unavailable Unavailable Yojana Middleton MD Unavailable Unavailable Yojana Middleton MD Unavailable Unavailable Yojana Middleton MD Unavailable Unavailable Yojana Middleton MD Unavailable Unavailable Yojana Middleton MD Unavailable Unavailable Yojana Middleton MD Unavailable Unavailable Yojana Middleton MD Unavailable Unavailable Yojana Middleton MD Unavailable Unavailable Yojana Middleton MD Unavailable Unavailable Yojana Middleton MD Unavailable Unavailable Yojana Middleton MD Unavailable Unavailable Yojana Middleton MD Unavailable Unavailable Yojana Middleton MD Unavailable Unavailable Yojana Middleton MD Unavailable Unavailable Yojana Middleton MD Unavailable Unavailable Yojana Middleton MD Unavailable Unavailable Yojana Middleton MD Unavailable Unavailable Yojana Middleton MD Unavailable Unavailable Yojana Middleton MD Unavailable Unavailable Yojana Middleton MD Unavailable Unavailable Yojana Middleton MD Unavailable Unavailable Yojana Middleton MD Unavailable Unavailable Yojana Middleton MD Unavailable Unavailable Yojana Middleton MD Unavailable Unavailable Yojana Middleton MD Unavailable Unavailable Yojana Middleton MD Unavailable Unavailable Yojana Middleton MD Unavailable Unavailable Yojana Middleton MD Unavailable Unavailable Yjoana Middleton MD Unavailable Unavailable Yojana Middleton MD Unavailable Unavailable Yojana Middleton MD Unavailable Unavailable Yojana Middleton MD Unavailable Unavailable Yojana Middleton MD Unavailable Unavailable Yojana Middleton MD Unavailable Unavailable Yojana Middleton MD Unavailable Unavailable Yojana Middleton MD Unavailable Unavailable Yojana Middleton MD Unavailable Unavailable Yojana Middleton MD Unavailable Unavailable Yojana Middleton MD Unavailable Unavailable Yojana Middleton MD Unavailable Unavailable Yojana Middleton MD Unavailable Unavailable Yojana Middleton MD Unavailable Unavailable Emi, O Samah MD Unavailable Unavailable Emi, O Samah MD Unavailable Unavailable Emi, O Samah MD Unavailable Unavailable Emi, O Samah MD Unavailable Unavailable Emi, O Samah MD Unavailable Unavailable Emi, O Samah MD Unavailable Unavailable Emi, O Samah MD Unavailable Unavailable Emi, O Samah MD Unavailable Unavailable Emi, O Samah MD Unavailable Unavailable Emi, O Samah MD Unavailable Unavailable Emi, O Samah MD Unavailable Unavailable Emi, O Samah MD Unavailable Unavailable Emi, O Samah MD Unavailable Unavailable Emi, O Samah MD Unavailable Unavailable Emi, O Samah MD Unavailable Unavailable Emi, O Samah MD Unavailable Unavailable Emi, O Samah MD Unavailable Unavailable Emi, O Samah MD Unavailable Unavailable Emi, O Samah MD Unavailable Unavailable Emi, O Samah MD Unavailable Unavailable Emi, O Samah MD Unavailable Unavailable Emi, O Samah MD Unavailable Unavailable Emi, O Samah MD Unavailable Unavailable Emi, O Samah MD Unavailable Unavailable Emi, O Samah MD Unavailable Unavailable Emi, O Samah MD Unavailable Unavailable Emi, O Samah MD Unavailable Unavailable Re-disclosure Warning The records that you are about to access may contain information from federally-assisted alcohol or drug abuse programs. If such information is present, then the following federally mandated warning applies: This information has been disclosed to you from records protected by federal confidentiality rules (42 CFR part 2). The federal rules prohibit you from making any further disclosure of this information unless further disclosure is expressly permitted by the written consent of the person to whom it pertains or as otherwise permitted by 42 CFR part 2. A general authorization for the release of medical or other information is NOT sufficient for this purpose. The Federal rules restrict any use of the information to criminally investigate or prosecute any alcohol or drug abuse patient.The records that you are about to access may contain highly sensitive health information, the redisclosure of which is protected by Article 27-F of the [facility] Public Health law. If you continue you may have access to information: Regarding HIV / AIDS; Provided by facilities licensed or operated by the [facility] Office of Mental Health; or Provided by the [facility] Office for People With Developmental Disabilities. If such information is present, then the following [facility] mandated warning applies: This information has been disclosed to you from confidential records which are protected by state law. State law prohibits you from making any further disclosure of this information without the specific written consent of the person to whom it pertains, or as otherwise permitted by law. Any unauthorized further disclosure in violation of state law may result in a fine or fpc sentence or both. A general authorization for the release of medical or other information is NOT sufficient authorization for further disc losure. Allergies and Adverse Reactions Type Description Substance Reaction Status Data Source(s ) Allergy to substance No Known Allergies No known allergies (situation ) WILLEM (Kirt Mckeon MD [facility]) Family History Family Member Name Family Member Gender Family Member Status Date o f Status Description Data Source(s) Unknown Male Problem [facility] ([facility]) Encounters Encounter Providers Location Date Indications Data Source(s ) Outpatient Attender: HOLLIE reynosoy 09/27/2021 08:20:00 AM EDT [facility] ([facility]) Outpatient Attender: Rose Marie Warren [facility] Main Office 08/25/2021 12:00:00 PM EDT [facility] ([facility]) Outpatient Attender: Nikki Middleton MD [facility] office [facility] 08/17/2021 01:30:00 PM EDT [facility] ([facility]) Outpatient Attender: ADELAIDA churchill 06/28/2021 08:00:00 AM EDT [facility] ([facility]) Outpatient Attender: Nikki Middleton MD [facility] office - [facility] 05/04/2021 01:30:00 PM EDT [facility] ([facility]) Outpatient Attender: Alfonzo Lamb 0 04/15/2021 03:00:00 PM EDT [facility] ([facility] ) Outpatient Attender: Alfonzo Lamb 0 12/16/2020 01:00:00 PM EST [facility] ([facility] ) Outpatient<td ID="encounterTypeDescripti onID0">1 Year Follow-Up</td><td>Kirt Millan MD, FACS</td><td>Kirt Millan MD [facility]</td><td>10/10/2020</td><td>7:59AM</td><td>8:53AM</td><td><content ID="encounterDiagnosisID0-0">Myasthenia Gravis</content>, <content ID="encounterDiagnosisID0-1">Conjunctivitis Chronic Allergic</content>, <content ID="encounterDiagnosisID0-2">Dry Eye Syndrome Both Eyes</content>, <content ID="encounterDiagnosisID0-3">Vitreous Disorders Degeneration</content></td> Attender: Kirt Mckeon MD, FACS Kirt Millan MD [facility] 10/10/2020 07:59:0 0 AM EST - 10/10/2020 08:53:00 AM EST Vitreous Disorders DegenerationMyastheni a GravisDry Eye Syndrome Both EyesConjunctivitis Chronic Allergic WILLEM (Kirt Mckeon MD [facility]) Vitreous Disorders Degeneration Myasthenia Gravis 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 COVID-19 VACCINE Pfizer 02/07/2021 12:00:00 AM EST completed [facility] Vaccine Series Complete: YESThis Data wa s Submitted to [facility] [employer]. COVID-19 VACCINE Pfizer 01/17/2021 12:00:00 AM EST completed [facility] Vaccine Series Complete: NOThis Data was Submitted to [facility] [employer]. Influenza, injectable, MDCK, preservative free, axel valent 08/13/2020 02:31:00 PM EDT completed [facility] ([facility]) Medications Medication Brand Name Start Date Product Form Dose Route Admi nistrative Instructions Pharmacy Instructions Status Indications Reaction Description Data Source(s) 60 mcg (15 mcg x 4)/0.5 mL 08/18/2021 12:00:00 AM EDT suspen leobardo 0 INJECT INTRAMUSCULARLY DIRECTED INJECT INTRAMUSCULARLY DIRECTED SOLD: 08/18/2021 [facility] 10 mg 08/04/2021 12:00:00 AM EDT tablet 30 TAKE 1/2 -1 TABLETS BY MOUTH AT BEDTIME NEEDED MAXIMUM DAILY DOSE = ONE TABLET TAKE 1/2 -1 TABLETS BY MOUTH AT BEDTIME NEEDED MAXIMUM DAILY DOSE = ONE TABLET SOLD: 08/09/2021 [facility] 10 mg 08/04/2021 12:00:00 AM EDT tablet 30 TAKE 1/2 -1 TABLETS BY MOUTH AT BEDTIME NEEDED MAXIMUM DAILY DOSE = ONE TABLET TAKE 1/2 -1 TABLETS BY MOUTH AT BEDTIME NEEDED MAXIMUM DAILY DOSE = ONE TABLET SOLD: 09/02/2021 [facility] 100 mg 06/28/2021 12:00:00 AM EDT capsule 20 TAKE ONE CAPSULE BY MOUTH TWICE A DAY FOR 10 DAYS TAKE ONE CAPSULE BY MOUTH TWICE A DAY FOR 10 DAYS SOLD : 06/28/2021 [facility] Doxycycline Monohydrate 100 MG Oral Capsule Doxycycline [place] hydrate 06/28/2021 12:00:00 AM EDT ORAL completed [facility] ([facility], [facility]) 20 mg 04/21/2021 12:00:00 AM EDT capsule,delayed release (DR/EC) 60 TAKE ONE CAPSULE BY MOUTH TWICE A DAY TAKE ONE CAPSULE BY MOUTH TWICE A DAY SOLD: 04/21/2021 [facility] 30 mg 04/16/2021 12:00:00 AM EDT capsule,delayed release (DR/EC) 60 TAKE ONE CAPSULE BY MOUTH TWICE A DAY TAKE ONE CAPSULE BY MOUTH TWICE A DAY SOLD: 04/21/2021 [facility] 30 mg 04/16/2021 12:00:00 AM EDT capsule,delayed release (DR/EC) 60 TAKE ONE CAPSULE BY MOUTH TWICE A DAY TAKE ONE CAPSULE BY MOUTH TWICE A DAY SOLD: 08/09/2021 [facility] 50 mcg 01/22/2021 12:00:00 AM EST tablet 30 TAKE ONE TABLET BY MOUTH EVERY DAY TAKE ONE TABLET BY MOUTH EVERY DAY SOLD: 01/24/2021 [facility] 10 mg 12/24/2020 12:00:00 AM EST tablet 30 TAKE 1/2 -1 TABLETS BY MOUTH AT BEDTIME NEEDED MAXIMUM DAILY DOSE = ONE TABLET TAKE 1/2 -1 TABLETS BY MOUTH AT BEDTIME NEEDED MAXIMUM DAILY DOSE = ONE TABLET SOLD: 02/13/2021 [facility] 10 mg 12/24/2020 12:00:00 AM EST tablet 30 TAKE 1/2 -1 TABLETS BY MOUTH AT BEDTIME NEEDED MAXIMUM DAILY DOSE = ONE TABLET TAKE 1/2 -1 TABLETS BY MOUTH AT BEDTIME NEEDED MAXIMUM DAILY DOSE = ONE TABLET SOLD: 12/25/2020 [facility] 10 mg 12/24/2020 12:00:00 AM EST tablet 30 TAKE 1/2 -1 TABLETS BY MOUTH AT BEDTIME NEEDED MAXIMUM DAILY DOSE = ONE TABLET TAKE 1/2 -1 TABLETS BY MOUTH AT BEDTIME NEEDED MAXIMUM DAILY DOSE = ONE TABLET SOLD: 03/20/2021 [facility] 20 mg 12/23/2020 12:00:00 AM EST capsule,delayed release (DR/EC) 60 TAKE ONE CAPSULE BY MOUTH TWICE A DAY TAKE ONE CAPSULE BY MOUTH TWICE A DAY SOLD: 01/24/2021 [facility] 20 mg 12/23/2020 12:00:00 AM EST capsule,delayed release (DR/EC) 60 TAKE ONE CAPSULE BY MOUTH TWICE A DAY TAKE ONE CAPSULE BY MOUTH TWICE A DAY SOLD: 12/25/2020 [facility] 20 mg 12/23/2020 12:00:00 AM EST capsule,delayed release (DR/EC) 60 TAKE ONE CAPSULE BY MOUTH TWICE A DAY TAKE ONE CAPSULE BY MOUTH TWICE A DAY SOLD: 02/22/2021 [facility] 20 mg 08/15/2020 12:00:00 AM EDT capsule,delayed release (DR/EC) 60 TAKE ONE CAPSULE BY MOUTH TWICE A DAY TAKE ONE CAPSULE BY MOUTH TWICE A DAY SOLD: 09/22/2020 [facility] 20 mg 08/15/2020 12:00:00 AM EDT capsule,delayed release (DR/EC) 60 TAKE ONE CAPSULE BY MOUTH TWICE A DAY TAKE ONE CAPSULE BY MOUTH TWICE A DAY SOLD: 11/25/2020 [facility] 20 mg 08/15/2020 12:00:00 AM EDT capsule,delayed release (DR/EC) 60 TAKE ONE CAPSULE BY MOUTH TWICE A DAY TAKE ONE CAPSULE BY MOUTH TWICE A DAY SOLD: 10/21/2020 [facility] 20 mg 08/15/2020 12:00:00 AM EDT capsule,delayed release (DR/EC) 60 TAKE ONE CAPSULE BY MOUTH TWICE A DAY TAKE ONE CAPSULE BY MOUTH TWICE A DAY SOLD: 08/16/2020 [facility] 10 mg 08/14/2020 12:00:00 AM EDT tablet 30 TAKE 1/2 - 1 TABLET AT BEDTIME NEEDED MAXIMUM DAILY DOSE = 1 TABLET TAKE 1/2 - 1 TABLET AT BEDTIME NEEDED MAXIMUM DAILY DOSE = 1 TABLET SOLD: 08/16/2020 [facility] 50 mcg 08/14/2020 12:00:00 AM EDT tablet 30 TAKE ONE TABLET BY MOUTH EVERY DAY TAKE ONE TABLET BY MOUTH EVERY DAY SOLD: 08/16/2020 [facility] 10 mg 08/14/2020 12:00:00 AM EDT tablet 30 TAKE 1/2 - 1 TABLET AT BEDTIME NEEDED MAXIMUM DAILY DOSE = 1 TABLET TAKE 1/2 - 1 TABLET AT BEDTIME NEEDED MAXIMUM DAILY DOSE = 1 TABLET SOLD: 11/29/2020 [facility] Immunization Adminstration,1 Vaccine/Toxoid 08/13/2020 12:00 :00 AM EDT completed [facility] ([facility]) Medication administered onsite Levothyroxine Sodium 0.05 MG Oral Tablet Levothyroxine Kasieu m 08/13/2020 12:00:00 AM EDT ORAL active M [facility] ([facility]) 175 mcg 01/24/2020 12:00:00 AM EST tablet 30 TAKE ONE TABLET BY MOUTH EVERY DAY TAKE ONE TABLET BY MOUTH EVERY DAY SOLD: 09/22/2020 [facility] 175 mcg 01/24/2020 12:00:00 AM EST tablet 30 TAKE ONE TABLET BY MOUTH EVERY DAY TAKE ONE TABLET BY MOUTH EVERY DAY SOLD: 08/16/2020 [facility] 175 mcg 01/24/2020 12:00:00 AM EST tablet 30 TAKE ONE TABLET BY MOUTH EVERY DAY TAKE ONE TABLET BY MOUTH EVERY DAY SOLD: 12/25/2020 [facility] 175 mcg 01/24/2020 12:00:00 AM EST tablet 30 TAKE ONE TABLET BY MOUTH EVERY DAY TAKE ONE TABLET BY MOUTH EVERY DAY SOLD: 11/25/2020 [facility] 175 mcg 01/24/2020 12:00:00 AM EST tablet 30 TAKE ONE TABLET BY MOUTH EVERY DAY TAKE ONE TABLET BY MOUTH EVERY DAY SOLD: 10/21/2020 [facility] Insurance Providers Payer name Policy type / Coverage type Policy ID Covered alliance party ID Covered alliance party's relationship to randall Policy Randall Plan Information [facility] Maintenance Organization (O) [id number] Family Dependent 802 [facility] [place] [id number] Family Dependent [id number] [facility] Trad/MX Medigap Part B [id number] Family Dependent [id number] [facility] Trad/MX Commercial [id number] Family Dependent 802 [employer] [place] O 302/307 [id number] WI2 [id number] [facility] Trad/MX Medigap Part B [id number] Family Dependent [id number] [facility] Trad/MX Commercial [id number] Family Dependent 802 [facility] Healthcare Commercial [id number] Family Dependent [id number] P Healthcare Commercial [id number] Self [id number] [facility] Healthcare Commercial [id number] Self P Healthcare Commercial [place] [facility] [id number] Family Dependent [facility] HEALTH CARE [id number] SP [id number] [facility] Health Care Health Maintenance Organization (O) [id number] 1 [id number] Self [id number] [facility] HEALTH CARE O [id number] S 80 [id number] [facility] HEALTH CARE O [id number] P 80 [id number] [facility] [id number] WA2 [id number] [employer] P [id number] P [id number] [facility] [id number] SP [id number] [employer] P [id number] P VYI [id number] [facility] [id number] SP [id number] Problems, Conditions, and Diagnoses No Information Surgeries/Procedures Procedure Description Date Indications Data Source(s) Therapeutic, Prophylactic Or Diagnostic Injection Subq/Im 09/27/2021 12:00:00 AM EDT [facility] ([facility]) OFFICE OUTPATIENT VISIT 25 MINUTES 09/27/2021 12:00:00 AM EDT [facility] OFFICE OUTPATIENT VISIT 25 MINUTES 08/25/2021 12:00:00 AM EDT [facility] ([facility]) OFFICE OUTPATIENT VISIT 25 MINUTES 08/17/2021 12:00:00 AM EDT [facility] ([facility], ) OFFICE OUTPATIENT VISIT 15 MINUTES 06/28/2021 12:00:00 AM EDT [facility] ([facility]) OFFICE OUTPATIENT VISIT 25 MINUTES 05/04/2021 12:00:00 AM EDT [facility] ([facility], ) ECG ROUTINE ECG W/LEAST 12 LDS W/I&R 04/15/2021 12:00: 00 AM EDT [facility] ([facility]) OFFICE OUTPATIENT VISIT 25 MINUTES 04/15/2021 12:00:00 AM EDT [facility] ([facility]) Intermediate Eye Exam Established Patient Intermediate Eye Exam Established Patient 10/10/2020 12:00:00 AM EST [facility] (Hosea stu Mckeon MD [facility]) ECHO TTHRC R-T 2D W/WOM-MODE COMPL SPEC&COLR DOP 09/22 12:00:00 AM EDT [facility] ([facility]) Results ID Date Data Source [id number] 09/15/2021 11:17:00 AM EDT [facility] ([facility]) Name Value Range Interpretation Code Description Data Gabbi rce(s) Supporting Document(s) Thyrotropin [Units/volume] in Serum or Plasma by Detec tion limit <= 0.05 mIU/L Laboratory test result [facility] ([facility]) ID Date Data Source [id number] 09/15/2021 11:17:00 AM EDT [facility] ([facility]) Name Value Range Interpretation Code Description Data Gabbi rce(s) Supporting Document(s) Hemoglobin A1c/Hemoglobin.total in Blood Laboratory test result [facility] ID Date Data Source [id number] 07/14/2021 12:00:00 AM EDT [facility] Name Value Range Interpretation Code Description Data Gabbi rce(s) Supporting Document(s) SARS-CoV2 Rapid Antigen Negative [facility] This lab was reported by [facility]. ID Date Data Source [id number] 04/14/2021 03:08:00 PM EDT [facility] ([facility]) Name Value Range Interpretation Code Description Data Gabbi rce(s) Supporting Document(s) Vitamin B12 Level 477 pg/mL [facility] ([facility]) VITAMIN B12 NORMAL RANGE NORMAL 247 - 911 PG/ML INDETERMINATE 211 - 246 PG/ML DEFICIENT LESS THAN 211 PG/ML Folate 6.0 ng/mL [facility] ([facility]) FOLATE NORMAL RANGE NORMAL GREATER THAN 5.4 NG/ML INDETERMINATE 3.4-5.4 NG/ML DEFICIENT LESS THAN 3.4 NG/ML ID Date Data Source [id number] 04/14/2021 03:07:00 PM EDT [facility] ([facility]) Name Value Range Interpretation Code Description Data Gabbi rce(s) Supporting Document(s) Calcidiol [Mass/volume] in Serum or Plasma 20.6 ng/mL 24.0-80.0 [facility]) This test was performed using [employer] I P Vitamin D immunoassay kit. Values obtained with different assay methods should not be used interchangeably. ID Date Data Source [id number] 04/14/2021 03:07:00 PM EDT [facility] ([facility]) Name Value Range Interpretation Code Description Data Gabbi rce(s) Supporting Document(s) Thyrotropin [Units/volume] in Serum or Plasma by Detec tion limit <= 0.05 mIU/L 0.04 uIU/mL 0.36-3.74 [facility] ([facility] ) ID Date Data Source [id number] 04/14/2021 03:07:00 PM EDT [facility] ([facility]) Name Value Range Interpretation Code Description Data Gabbi rce(s) Supporting Document(s) Glucose [Mass/volume] in Serum or Plasma 116 mg/dL 74-99 [facility] ([facility]) 100-125 mg/dL PRE-DIABETES/FASTING >126 mg/dL DIABETES/FASTING Urea nitrogen [Mass/volume] in Serum or Plasma 14 mg/dL 7-18 [facility] ([facility]) Creatinine 1.4 mg/dL 0.6-1.3 [facility] Sodium [Moles/volume] in Serum or Plasma 143 meq/L 136-145 [facility] ([facility]) Chloride [Moles/volume] in Serum or Plasma 107 meq/L 98-107 [facility] ([facility]) Potassium [Moles/volume] in Serum or Plasma 4.6 meq/L 3.5-5.1 [facility] ([facility]) Alkaline phosphatase isoenzyme [Units/volume] in Serum or Pl asma 93 mg/dL 46-116 [facility] ([facility]) Calcium [Mass/volume] in Serum or Plasma 9.3 mg/dL 8.5-10.1 [facility] ([facility]) Carbon dioxide, total [Moles/volume] in Serum or Plasma 27 meq/L 21 -32 [facility] ([facility]) Total Bilirubin 1.4 mg/dL 0.2-1.0 [facility] ([facility]) Aspartate aminotransferase [Enzymatic activity/volume] in Serum or Plasma 35 U/L 15-37 [facility] ([facility] ) Albumin [Mass/volume] in Serum or Plasma 4.3 g/dL 3.4-5.0 [facility] ([facility]) Proteinase 3 Ab [Units/volume] in Serum 7.8 g/dL 6.4-8.2 [facility] ([facility]) Alanine aminotransferase [Enzymatic activity/volume] in Seru m or Plasma 47 U/L 12-78 [facility] Glomerular filtration rate/1.73 sq M pre dicted among non-blacks [Volume Rate/Area] in Serum or Plasma by Creatinine-based formula (MDRD) 51 mL/min [facility] A/G Ratio 1.23 CALC 1.00-1.90 [facility] Glomerular filtration rate/1.73 sq M pre dicted among blacks [Volume Rate/Area] in Serum or Plasma by Creatinine-based formula (MDRD) Laboratory test result [facility] ([facility]) <content>CHRONIC KIDNEY DISEASE STAGING PER NKF</content>
<content></content>
<content>STAGE I & II GFR >= 60 NORMAL TO MILDLY DECREASED</content>
<content>STAGE III GFR 30-59 MODERATELY DECREASED</content>
<content>STAGE IV GFR 15-29 SEVERELY DECREASED</content>
<content>STAGE V GFR <15 VERY LITTLE GFR LEFT</content>
<content>ESRD GFR <15 ON INSECTICIDE MIXER</content>
<content></content> ID Date Data Source [id number] 04/14/2021 03:07:00 PM EDT [facility] Name Value Range Interpretation Code Description Data Gabbi rce(s) Supporting Document(s) Glucose mean value [Mass/volume] in Blood Estimated fr om glycated hemoglobin 114 mg/dL 60-110 [facility] ([facility] ) Hemoglobin A1c/Hemoglobin.total in Blood 5.6 % [facility] ([facility]) Lab Result Notes: Pre-Diabetes 5.7 - 6.4 % Diabetes = or > 6.5% ID Date Data Source [id number] 04/14/2021 03:07:00 PM EDT [facility] Name Value Range Interpretation Code Description Data Gabbi rce(s) Supporting Document(s) Leukocytes [#/volume] in Blood by Automated count 6.8 x10*3/UL 4.1-10 .9 [facility] Erythrocytes [#/volume] in Blood by Automated count 5.10 x10*6/UL 4.2 0-6.30 [facility] ([facility]) Hemoglobin [Mass/volume] in Blood 15.7 g/dL 12.0-18.0 [facility] ([facility]) MCV 91.0 fL 80.0-97.0 [facility] ([facility]) Hematocrit [Volume Fraction] of Blood by Automated count 46.4 % 3 7.0-51.0 [facility] ([facility]) MCHC 33.8 g/dL 31.0-38.0 [facility] ([facility]) MCH 30.8 pg 26.0-32.0 [facility] ([facility]) Erythrocyte distribution width [Ratio] by Automated count 13.1 % 11.6-13.7 [facility] ([facility]) MPV 9.4 FL 7.8-11.0 [facility] ([facility]) Platelets [#/volume] in Blood by Automated count 254 x10*3/UL 140-440 [facility] ([facility]) Lymph % 19.7 % 10.0-58.5 [facility] ([facility]) Mid % 5.4 % 1.7-9.3 [facility] ([facility]) Neut % 74.9 % 37.0-92.0 [facility] ([facility]) Lymph # 1.3 x10*3/UL 0.6-4.1 [facility] ([facility]) Mid # 0.4 x10*3/UL 0.1-0.6 [facility] ([facility]) Neut # 5.1 x10*3/UL 2.0-7.8 [facility] ([facility]) ID Date Data Source [id number] 12/15/2020 01:26:00 PM EST [facility] ([facility]) Name Value Range Interpretation Code Description Data Gabbi rce(s) Supporting Document(s) Thyroxine (T4) free [Mass/volume] in Serum or Plasma 1.20 ng/dL 0.76- 1.46 [facility] ([facility]) ID Date Data Source [id number] 12/15/2020 01:25:00 PM EST [facility] ([facility]) Name Value Range Interpretation Code Description Data Gabbi rce(s) Supporting Document(s) Thyrotropin [Units/volume] in Serum or Plasma by Detec tion limit <= 0.05 mIU/L 7.48 uIU/mL 0.36-3.74 [facility] ([facility] ) ID Date Data Source [id number] 12/15/2020 01:25:00 PM EST [facility] ([facility]) Name Value Range Interpretation Code Description Data Gabbi rce(s) Supporting Document(s) Triglyceride [Mass/volume] in Serum or Plasma 146 mg/dL 30-150 [facility] ([facility]) Cholesterol [Mass/volume] in Serum or Plasma 128 mg/dL 131-200 [facility] ([facility]) Cholesterol in HDL [Mass/volume] in Serum or Plasma 27 mg/dL 35-60 [facility] ([facility]) Cholesterol in LDL [Mass/volume] in Serum or Plasma by calcu lation 72 CALC 50-159 [facility] ([facility]) ID Date Data Source [id number] 12/15/2020 01:25:00 PM EST [facility] ([facility]) Name Value Range Interpretation Code Description Data Gabbi rce(s) Supporting Document(s) Glucose [Mass/volume] in Serum or Plasma 64 mg/dL 74-99 [facility] ([facility]) 100-125 mg/dL PRE-DIABETES/FASTING >126 mg/dL DIABETES/FASTING Urea nitrogen [Mass/volume] in Serum or Plasma 17 mg/dL 7-18 [facility] ([facility]) Sodium [Moles/volume] in Serum or Plasma 141 meq/L 136-145 [facility] ([facility]) Creatinine 1.2 mg/dL 0.6-1.3 [facility] Potassium [Moles/volume] in Serum or Plasma 4.1 meq/L 3.5-5.1 [facility] ([facility]) Chloride [Moles/volume] in Serum or Plasma 105 meq/L 98-107 [facility] ([facility]) Carbon dioxide, total [Moles/volume] in Serum or Plasma 22 meq/L 21 -32 [facility] ([facility]) Calcium [Mass/volume] in Serum or Plasma 9.2 mg/dL 8.5-10.1 [facility] ([facility]) Alkaline phosphatase isoenzyme [Units/volume] in Serum or Pl asma 91 mg/dL 46-116 [facility] ([facility]) Total Bilirubin 1.7 mg/dL 0.2-1.0 [facility] ([facility]) Aspartate aminotransferase [Enzymatic activity/volume] in Serum or Plasma 24 U/L 15-37 [facility] ([facility] ) Albumin [Mass/volume] in Serum or Plasma 3.8 g/dL 3.4-5.0 [facility] ([facility]) Alanine aminotransferase [Enzymatic activity/volume] in Seru m or Plasma 30 U/L 12-78 [facility] ([facility]) Proteinase 3 Ab [Units/volume] in Serum 6.9 g/dL 6.4-8.2 [facility] ([facility]) A/G Ratio 1.23 CALC 1.00-1.90 [facility] ([facility]) Glomerular filtration rate/1.73 sq M pre dicted among non-blacks [Volume Rate/Area] in Serum or Plasma by Creatinine-based formula (MDRD) Laboratory test result [facility] Glomerular filtration rate/1.73 sq M pre dicted among blacks [Volume Rate/Area] in Serum or Plasma by Creatinine-based formula (MDRD) Laboratory test result [facility] <content>CHRONIC KIDNEY DISEASE STAGING PER NKF</content>
<content></content>
<content>STAGE I & II GFR >= 60 NORMAL TO MILDLY DECREASED</content>
<content>STAGE III GFR 30-59 MODERATELY DECREASED</content>
<content>STAGE IV GFR 15-29 SEVERELY DECREASED</content>
<content>STAGE V GFR <15 VERY LITTLE GFR LEFT</content>
<content>ESRD GFR <15 ON INSECTICIDE MIXER</content>
<content></content> ID Date Data Source [id number] 12/15/2020 01:25:00 PM EST [facility] ([facility]) Name Value Range Interpretation Code Description Data Gabbi rce(s) Supporting Document(s) Hemoglobin A1c/Hemoglobin.total in Blood 5.6 % [facility] ([facility]) Lab Result Notes: Pre-Diabetes 5.7 - 6.4 % Diabetes = or > 6.5% Glucose mean value [Mass/volume] in Blood Estimated fr om glycated hemoglobin 114 mg/dL 60-110 [facility] ) ID Date Data Source [id number] 12/15/2020 01:25:00 PM EST [facility] ([facility]) Name Value Range Interpretation Code Description Data Gabbi rce(s) Supporting Document(s) Erythrocytes [#/volume] in Blood by Automated count 4.88 x10*6/UL 4.2 0-6.30 [facility] ([facility]) Leukocytes [#/volume] in Blood by Automated count 6.9 x10*3/UL 4.1-10 .9 [facility] ([facility]) Hematocrit [Volume Fraction] of Blood by Automated count 44.4 % 3 7.0-51.0 [facility] ([facility]) Hemoglobin [Mass/volume] in Blood 15.1 g/dL 12.0-18.0 [facility] ([facility]) MCV 91.0 fL 80.0-97.0 [facility] ([facility]) MCHC 34.1 g/dL 31.0-38.0 [facility] ([facility]) MCH 31.0 pg 26.0-32.0 [facility] ([facility]) Platelets [#/volume] in Blood by Automated count 240 x10*3/UL 140-440 [facility] ([facility]) Erythrocyte distribution width [Ratio] by Automated count 13.1 % 11.6-13.7 [facility] ([facility]) MPV 9.5 FL 7.8-11.0 [facility] ([facility]) Mid % 5.7 % 1.7-9.3 [facility] Lymph % 22.6 % 10.0-58.5 [facility] ([facility]) Neut % 71.7 % 37.0-92.0 [facility] Lymph # 1.5 x10*3/UL 0.6-4.1 [facility] ([facility]) Mid # 0.5 x10*3/UL 0.1-0.6 [facility] ([facility]) Neut # 4.9 x10*3/UL 2.0-7.8 [facility] ([facility]) ID Date Data Source [id number] 08/12/2020 10:23:00 AM EDT [facility] ([facility]) Name Value Range Interpretation Code Description Data Gabbi rce(s) Supporting Document(s) Thyrotropin [Units/volume] in Serum or Plasma by Detec tion limit <= 0.05 mIU/L 12.21 uIU/mL 0.36-3.74 [facility] ([facility] ) Thyroxine (T4) free [Mass/volume] in Serum or Plasma 1.28 ng/dL 0.76- 1.46 [facility] ([facility]) ID Date Data Source [id number] 08/12/2020 10:23:00 AM EDT [facility] ([facility]) Name Value Range Interpretation Code Description Data Gabbi rce(s) Supporting Document(s) Cholesterol [Mass/volume] in Serum or Plasma 126 mg/dL 131-200 [facility] ([facility]) Cholesterol in HDL [Mass/volume] in Serum or Plasma 27 mg/dL 35-60 [facility] ([facility]) Triglyceride [Mass/volume] in Serum or Plasma 105 mg/dL 30-150 [facility] ([facility]) Cholesterol in LDL [Mass/volume] in Serum or Plasma by calcu lation 78 CALC 50-159 [facility] ([facility]) ID Date Data Source [id number] 08/12/2020 10:23:00 AM EDT [facility] ([facility]) Name Value Range Interpretation Code Description Data Gabbi rce(s) Supporting Document(s) Glucose [Mass/volume] in Serum or Plasma 106 mg/dL 74-99 [facility] ([facility]) 100-125 mg/dL PRE-DIABETES/FASTING >126 mg/dL DIABETES/FASTING Creatinine 1.3 mg/dL 0.6-1.3 [facility] ([facility] Urea nitrogen [Mass/volume] in Serum or Plasma 12 mg/dL 7-18 [facility] ([facility]) Potassium [Moles/volume] in Serum or Plasma 4.1 meq/L 3.5-5.1 [facility] ([facility]) Sodium [Moles/volume] in Serum or Plasma 142 meq/L 136-145 [facility] ([facility]) Chloride [Moles/volume] in Serum or Plasma 107 meq/L 98-107 [facility] ([facility]) Calcium [Mass/volume] in Serum or Plasma 8.8 mg/dL 8.5-10.1 [facility] ([facility]) Carbon dioxide, total [Moles/volume] in Serum or Plasma 21 meq/L 21 -32 [facility] ([facility]) Alkaline phosphatase isoenzyme [Units/volume] in Serum or Pl asma 71 mg/dL 46-116 [facility] ([facility]) Total Bilirubin 1.6 mg/dL 0.2-1.0 [facility] ([facility]) Aspartate aminotransferase [Enzymatic activity/volume] in Serum or Plasma 24 U/L 15-37 [facility] ([facility] ) Alanine aminotransferase [Enzymatic activity/volume] in Seru m or Plasma 30 U/L 12-78 [facility] ([facility]) Albumin [Mass/volume] in Serum or Plasma 3.8 g/dL 3.4-5.0 [facility] ([facility]) Proteinase 3 Ab [Units/volume] in Serum 6.9 g/dL 6.4-8.2 [facility] ([facility]) A/G Ratio 1.23 CALC 1.00-1.90 [facility] ([facility]) Glomerular filtration rate/1.73 sq M pre dicted among non-blacks [Volume Rate/Area] in Serum or Plasma by Creatinine-based formula (MDRD) 56 mL/min [facility] ([facility]) Glomerular filtration rate/1.73 sq M pre dicted among blacks [Volume Rate/Area] in Serum or Plasma by Creatinine-based formula (MDRD) Laboratory test result [facility] <content>CHRONIC KIDNEY DISEASE STAGING PER NKF</content>
<content></content>
<content>STAGE I & II GFR >= 60 NORMAL TO MILDLY DECREASED</content>
<content>STAGE III GFR 30-59 MODERATELY DECREASED</content>
<content>STAGE IV GFR 15-29 SEVERELY DECREASED</content>
<content>STAGE V GFR <15 VERY LITTLE GFR LEFT</content>
<content>ESRD GFR <15 ON INSECTICIDE MIXER</content>
<content></content> ID Date Data Source [id number] 08/12/2020 10:23:00 AM EDT [facility] ([facility]) Name Value Range Interpretation Code Description Data Gabbi rce(s) Supporting Document(s) Hemoglobin A1c/Hemoglobin.total in Blood 5.5 g/dL 4.8-5.6 [facility] Lab Result Notes: Pre-Diabetes 5.7 - 6.4 % Diabetes = or > 6.5% Glucose mean value [Mass/volume] in Blood Estimated fr om glycated hemoglobin 111 mg/dL 60-110 [facility] ID Date Data Source [id number] 08/12/2020 10:23:00 AM EDT [facility] Name Value Range Interpretation Code Description Data Gabbi rce(s) Supporting Document(s) Leukocytes [#/volume] in Blood by Automated count 5.8 x10*3/UL 4.1-10 .9 [facility] ([facility]) Erythrocytes [#/volume] in Blood by Automated count 4.80 x10*6/UL 4.2 0-6.30 [facility] ([facility]) Hemoglobin [Mass/volume] in Blood 15.4 g/dL 12.0-18.0 [facility] ([facility]) Hematocrit [Volume Fraction] of Blood by Automated count 44.4 % 3 7.0-51.0 [facility] ([facility]) MCH 32.1 pg 26.0-32.0 [facility] MCV 92.3 fL 80.0-97.0 [facility] ([facility]) MCHC 34.8 g/dL 31.0-38.0 [facility] ([facility]) Platelets [#/volume] in Blood by Automated count 203 x10*3/UL 140-440 [facility] ([facility]) Erythrocyte distribution width [Ratio] by Automated count 12.9 % 11.6-13.7 [facility] ([facility]) Lymph % 21.0 % 10.0-58.5 [facility] ([facility]) MPV 8.9 FL 7.8-11.0 [facility] ([facility]) Mid % 6.5 % 1.7-9.3 [facility] ([facility]) Lymph # 1.2 x10*3/UL 0.6-4.1 [facility] ([facility]) Neut % 72.5 % 37.0-92.0 [facility] ([facility]) Mid # 0.4 x10*3/UL 0.1-0.6 [facility] ([facility]) Neut # 4.2 x10*3/UL 2.0-7.8 [facility] ([facility]) Procedure Social History Code Duration Value Status Description Data Source(s ) Smoking 08/22/2021 09:02:35 AM EDT Never smoked tobacco (findi ng) completed Never smoked tobacco (finding) [place] (Kirt Mckeon MD [facility]) Vital Signs ID Date Data Source [id number] Name Value Range Interpretation Code Description Data Source(s) Systolic blood pressure 143 mm[Hg] 143 mm[Hg] M EDENT ([facility], [facility]) Diastolic blood pressure 98 mm[Hg] 98 mm[Hg] MEDENT ([facility], [facility]) Heart rate 52 /min 52 /min MEDENT ([facility], [facility]) Respiratory rate 18 /min 18 /min MEDENT ( [facility], [facility]) Oxygen saturation in Arterial blood by Pulse oximetry 99 % 99 % [facility], [facility]) Body temperature 96.0 [degF] 96.0 [degF] MEDENT ([facility], [facility]) Body weight 225.00 [lb_av] 225.00 [lb_av] MEDEN T ([facility], [facility]) Body height 73 [in_i] 73 [in_i] MEDENT ([facility], [facility]) 6'1" Body mass index (BMI) [Ratio] 29.7 kg/m2 29.7 k g/m2 MEDENT ([facility], [facility]) Systolic blood pressure 147 mm[Hg] 147 mm[Hg] M EDENT ([facility]) Diastolic blood pressure 95 mm[Hg] 95 mm[Hg] MEDENT ([facility]) Heart rate 75 /min 75 /min MEDENT ([facility]) Body weight 225.00 [lb_av] 225.00 [lb_av] MEDEN T ([facility]) Body height 72.5 [in_i] 72.5 [in_i] MEDENT ([facility], ) 6'0.50" Body weight 225.00 [lb_av] 225.00 [lb_av] MEDEN T ([facility], ) Vergas body weight 178 [lb_av] 178 [lb_av] MEDEN T ([facility], ) Body mass index (BMI) [Ratio] 30.1 kg/m2 30.1 k g/m2 MEDENT ([facility], ) Respiratory rate 12 /min 12 /min MEDENT ( [facility], ) Systolic blood pressure 118 mm[Hg] 118 mm[Hg] M EDENT ([facility], [facility]) Diastolic blood pressure 20 mm[Hg] 20 mm[Hg] MEDENT ([facility], [facility]) Heart rate 81 /min 81 /min MEDENT ([facility], [facility]) Respiratory rate 15 /min 15 /min MEDENT ( [facility], [facility]) Oxygen saturation in Arterial blood by Pulse oximetry 100 % 100 % MEDENT ([facility], [facility]) Body temperature 96.6 [degF] 96.6 [degF] MEDENT ([facility], [facility]) Body weight 230.00 [lb_av] 230.00 [lb_av] MEDEN T ([facility], [facility]) Body height 72 [in_i] 72 [in_i] MEDENT ([facility]) 6'0" Body mass index (BMI) [Ratio] 31.2 kg/m2 31.2 k g/m2 MEDENT ([facility]) Respiratory rate 12 /min 12 /min MEDENT ( [facility], ) Body height 72.5 [in_i] 72.5 [in_i] MEDENT ([facility], ) 6'0.50" Body mass index (BMI) [Ratio] 33.4 kg/m2 33.4 k g/m2 MEDENT ([facility], ) Vergas body weight 178 [lb_av] 178 [lb_av] MEDEN T ([facility], ) Body weight 250.00 [lb_av] 250.00 [lb_av] MEDEN T ([facility], ) Heart rate 72 /min 72 /min MEDENT ([facility]) Systolic blood pressure 112 mm[Hg] 112 mm[Hg] [facility] Diastolic blood pressure 68 mm[Hg] 68 mm[Hg] MEDENT ([facility]) Body height 72.25 [in_i] 72.25 [in_i] [facility] 6'0.25" Body weight 259.00 [lb_av] 259.00 [lb_av] MEDEN T ([facility]) Body mass index (BMI) [Ratio] 34.9 kg/m2 34.9 k g/m2 MEDENT ([facility]) Body height 72.25 [in_i] 72.25 [in_i] [facility] 6'0.25" Body mass index (BMI) [Ratio] 36.8 kg/m2 36.8 k g/m2 MEDENT ([facility]) Body weight 273.00 [lb_av] 273.00 [lb_av] MEDEN T ([facility]) Systolic blood pressure 130 mm[Hg] 130 mm[Hg] M EDENT ([facility]) Diastolic blood pressure 76 mm[Hg] 76 mm[Hg] QUENTIN ([facility]) Heart rate 76 /min 76 /min QUENTIN ([facility]) Body weight 290.00 [lb_av] 290.00 [lb_av] HOMERO Combs ([facility])
--- OUTSIDE RECORDS SUMMARY | 2021-09-27 11:47 | CCD ---
Author Author [facility] Organization [facility] Address Unknown Phone Unavailable Care Team Providers Care Grade Teacher Name Role Phone Yesenia DASILVA Unavailable Unavailable LETTIERE, Yesenia CHILDERS Unavailable Unavailable LETTIERE, A HOLLIE PA Unavailable Unavailable LETTIERE, Yesenia CHILDERS Unavailable Unavailable [...] Unavailable LETTIERE, A HOLLIE PA Unavailable Unavailable Darvin Eastman MD Unavailable Unavailable Darvin Eastman MD Unavailable Unavailable Darvin Eastman MD Unavailable Unavailable Darvin Eastman MD Unavailable Unavailable RaizaDarvin MD Unavailable Unavailable RaizaDarvin MD Unavailable Unavailable RaizaDarvin MD Unavailable Unavailable BiloxiDarvin MD Unavailable Unavailable BiloxiDarvin MD Unavailable Unavailable RaizaDarvin MD Unavailable Unavailable RaizaDarvin MD Unavailable Unavailable RaizaDarvin MD Unavailable Unavailable RaizaDarvin MD Unavailable Unavailable BiloxiDarvin MD Unavailable Unavailable BiloxiDarvin MD Unavailable Unavailable RaizaDarvin MD Unavailable Unavailable RaizaDarvin MD Unavailable Unavailable RaizaDarvin MD Unavailable Unavailable BiloxiDarvin MD Unavailable Unavailable BiloxiDarvin MD Unavailable Unavailable BiloxiDarvin MD Unavailable Unavailable RaizaDarvin MD Unavailable Unavailable RaizaDarvin MD Unavailable Unavailable BiloxiDarvin MD Unavailable Unavailable RaizaDarvin MD Unavailable Unavailable BiloxiDarvin MD Unavailable Unavailable BiloxiDarvin MD Unavailable Unavailable BiloxiDarvin MD Unavailable Unavailable RaizaDarvin MD Unavailable Unavailable BiloxiDarvin MD Unavailable Unavailable BiloxiDarvin MD Unavailable Unavailable BiloxiDarvin MD Unavailable Unavailable BiloxiDarvin MD Unavailable Unavailable BiloxiDarvin MD Unavailable Unavailable BiloxiDarvin MD Unavailable Unavailable BiloxiDarvin MD Unavailable Unavailable BiloxiDarvin MD Unavailable Unavailable BiloxiDarvin MD Unavailable Unavailable RaizaDarvin MD Unavailable Unavailable BiloxiDarvin MD Unavailable Unavailable BiloxiDarvin MD Unavailable Unavailable BiloxiDarvin MD Unavailable Unavailable RaizaDarvin MD Unavailable Unavailable RaizaDarvin MD Unavailable Unavailable RaizaDarvin MD Unavailable Unavailable RaizaDarvin MD Unavailable Unavailable RaizaDarvin MD Unavailable Unavailable BiloxiDarvin MD Unavailable Unavailable RaizaDarvin MD Unavailable Unavailable RaizaDarvin MD Unavailable Unavailable BiloxiDarvin MD Unavailable Unavailable BiloxiDarvin MD Unavailable Unavailable RaizaDarvin MD Unavailable Unavailable RaizaDarvin MD Unavailable Unavailable RaizaDarvin MD Unavailable Unavailable RaizaDarvin MD Unavailable Unavailable BiloxiDarvin MD Unavailable Unavailable BiloxiDarvin MD Unavailable Unavailable BiloxiDarvin MD Unavailable Unavailable BiloxiDarvin MD Unavailable Unavailable Biloxi, F Mejía MD Unavailable Unavailable RaizaDarvin pinto MD Unavailable Unavailable BiloxiDarvin MD Unavailable Unavailable BiloxiDarvin pinto MD Unavailable Unavailable BiloxiDarvin MD Unavailable Unavailable BiloxiDarvin MD Unavailable Unavailable RaizaDarvin MD Unavailable Unavailable RaizaDarvin MD Unavailable Unavailable BiloxiDarvin MD Unavailable Unavailable BiloxiDarvin MD Unavailable Unavailable BiloxiDarvin MD Unavailable Unavailable BiloxiDarvin MD Unavailable Unavailable RaizaDarvin MD Unavailable Unavailable RaizaDarvin MD Unavailable Unavailable BiloxiDarvin MD Unavailable Unavailable RaizaDarvin MD Unavailable Unavailable RaizaDarvin MD Unavailable Unavailable BiloxiDarvin MD Unavailable Unavailable BiloxiDarvin MD Unavailable Unavailable BiloxiDarvin pinto MD Unavailable Unavailable RaizaDarvin pinto MD Unavailable Unavailable BiloxiDarvin pinto MD Unavailable Unavailable BiloxiDarvin pinto MD Unavailable Unavailable BiloxiDarvin pinto MD Unavailable Unavailable RaizaDarvin pinto MD Unavailable Unavailable BiloxiDarvin pinto MD Unavailable Unavailable Alexandria, Ros ENGINEERING [employer]PLIES SALES Unavailable Unavailable Alexandria, Ros ENGINEERING SUPPLIES SALES Unavailable Unavailable Alexandria, Ros ENGINEERING SUPPLIES SALES Unavailable Unavailable Alexandria, Ros ENGINEERING SUPPLIES SALES Unavailable Unavailable Alexandria, Ros ENGINEERING SUPPLIES SALES Unavailable Unavailable Alexandria, Ros ENGINEERING SUPPLIES SALES Unavailable Unavailable Alexandria, Ros ENGINEERING SUPPLIES SALES Unavailable Unavailable Alexandria, Ros ENGINEERING [employer]PPLIES SALES Unavailable Unavailable Alexandria, Ros ENGINEERING [employer]PPLIES SALES Unavailable Unavailable Alexandria, Ros ENGINEERING SUPPLIES SALES Unavailable Unavailable Alexandria, Ros ENGINEERING SUPPLIES SALES Unavailable Unavailable Alexandria, Ros ENGINEERING [employer]PPLIES SALES Unavailable Unavailable Alexandria, Ros ENGINEERING [employer]PPLIES SALES Unavailable Unavailable Alexandria, Ros ENGINEERING SUPPLIES SALES Unavailable Unavailable Alexandria, Ros ENGINEERING [employer]IES SALES Unavailable Unavailable Alexandria, Ros ENGINEERING [employer]IES SALES Unavailable Unavailable Alexandria, Ros ENGINEERING [employer]IES SALES Unavailable Unavailable Alexandria, Ros ENG[employer]ERING [employer]PPLIES SALES Unavailable Unavailable Alexandria, Ors ENGINEERING SUPPLIES SALES Unavailable Unavailable Alexandria, Ros ENGINEERING [employer]PPLIES SALES Unavailable Unavailable Alexandria, Ros ENGINEERING [employer]PPLIES SALES Unavailable Unavailable Alexandria, Ros ENGINEERING [employer]IES SALES Unavailable Unavailable Alexandria, Ros ENGINEERING [employer]PPLIES SALES Unavailable Unavailable Alexandria, Ros ENGINEERING [employer]PPLIES SALES Unavailable Unavailable Alexandria, Ros ENGINEERING SUPPLIES SALES Unavailable Unavailable Alexandria, Ros ENGINEERING [employer]IES SALES Unavailable Unavailable Alexandria, Ros ENGINEERING [employer]IES SALES Unavailable Unavailable Alexandria, Ros ENGINEERING SUPPLIES SALES Unavailable Unavailable Alexandria, Ros ENGINEERING [employer]PPLIES SALES Unavailable Unavailable Alexandria, Ros ENGINEERING [employer]IES SALES Unavailable Unavailable Alexandria, Ros ENGINEERING SUPPLIES SALES Unavailable Unavailable Alexandria, Ros ENGINEERING SUPPLIES SALES Unavailable Unavailable Alexandria, Ros ENGINEERING [employer]PPLIES SALES Unavailable Unavailable Alexandria, Ros ENG[employer]ERING [employer]IES SALES Unavailable Unavailable Alexandria, Ros [employer]ERING [employer]IES SALES Unavailable Unavailable Alexandria, Ros [employer] SALES Unavailable Unavailable WINNIE, ADELAIDA PA Unavailable Unavailable [...] Mckeon, Yesenia Moralez MD, FACS Unavailable Unavailable EmiYojana rubio MD Unavailable Unavailable Emi, Yojana Jordan MD Unavailable Unavailable Emi, Yojana Jordan MD Unavailable Unavailable Emi, Yojana Jordan MD Unavailable Unavailable Emi, Yojana Jordan MD Unavailable Unavailable Emi, Yojana Jordan MD Unavailable Unavailable Emi, Yojana Jordan MD Unavailable Unavailable Emi, Yojana Jordan MD Unavailable Unavailable Yojana Middleton MD Unavailable Unavailable Yojana Middleton MD Unavailable Unavailable Yojana Middleton MD Unavailable Unavailable Yojana Middleton MD Unavailable Unavailable Yojana Middleton MD Unavailable Unavailable Yojana Middleton MD Unavailable Unavailable Yojana Middleton MD Unavailable Unavailable Emi O Gneah Unavailable Unavailable Yojana Middleton MD Unavailable Unavailable [...] Unavailable Emi, O Samah MD Unavailable Unavailable Eim, O Samah MD Unavailable Unavailable Emi, O [...] is protected by Article 27-F of the [facility] Public Health law. If you continue you may have access to information: Regarding HIV / AIDS; Provided by facilities licensed or operated by the [facility] Office of Mental Health; or Provided by the [facility] Office for People With Developmental Disabilities. If such information is present, then the following [facility] mandated warning applies: This information has [...] law may result in a fine or assisted sentence or both. A general authorization for the release of medical or other information is NOT sufficient authorization for further disc losure. Allergies and Adverse Reactions Type Description Substance Reaction Status Data Source(s ) Allergy to substance No Known Allergies No known allergies (situation ) WILLEM (Kirt Mckeon MD [facility]) Family History Family Member Name Family Member Gender Family Member Status Date o f Status Description Data Source(s) Unknown Male Problem [facility] Encounters Encounter Providers Location Date Indications Data Source(s ) Outpatient Attender: HOLLIE reynosoy 09/27/2021 08:20:00 AM EDT [facility] ([facility], [facility]) Outpatient Attender: Rose Marie Warren [facility] Main Office 08/25/2021 12:00:00 PM EDT [facility] ([facility]) Outpatient Attender: Nikki Middleton MD [facility] office - [facility] 08/17/2021 01:30:00 PM EDT [facility] ([facility]) Outpatient Attender: ADELAIDA churchill 06/28/2021 08:00:00 AM EDT [facility] ([facility], [facility]) Outpatient Attender: Nikki Middleton MD [facility] office - [facility] 05/04/2021 01:30:00 PM EDT MED[facility] ([facility]) Outpatient Attender: Alfonzo Lamb 0 04/15/2021 03:00:00 PM EDT [facility] ([facility] ) Outpatient Attender: Alfonzo Lamb 0 12/16/2020 01:00:00 PM EST [facility] ([facility] ) Outpatient<td ID="encounterTypeDescripti onID0">1 Year Follow-Up</td><td>Kirt Millan MD, FACS</td><td>Kirt Millan MD [facility]</td><td>10/10/2020</td><td>7:59AM</td><td>8:53AM</td><td><content ID="encounterDiagnosisID0-0">Myasthenia Gravis</content>, <content ID="encounterDiagnosisID0-1">Conjunctivitis Chronic Allergic</content>, <content ID="encounterDiagnosisID0-2">Dry Eye Syndrome Both Eyes</content>, <content ID="encounterDiagnosisID0-3">Vitreous Disorders Degeneration</content></td> Attender: Kirt Mckeon MD, FACS Kirt Millan MD [facility] 10/10/2020 07:59:0 0 AM EST - 10/10/2020 08:53:00 AM EST Vitreous Disorders DegenerationMyastheni a GravisDry Eye Syndrome Both EyesConjunctivitis Chronic Allergic WILLEM (Kirt Mckeon MD [facility]) Vitreous Disorders Degeneration Myasthenia Gravis 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 COVID-19 VACCINE Pfizer 02/07/2021 12:00:00 AM EST completed [facility] Vaccine Series Complete: YESThis Data wa s Submitted to [facility]. COVID-19 VACCINE Pfizer 01/17/2021 12:00:00 AM EST completed [facility] Vaccine Series Complete: NOThis Data was Submitted to [facility]. Influenza, injectable, MDCK, preservative free, axel valent 08/13/2020 02:31:00 PM EDT completed [facility] ([facility]) Medications Medication Brand Name Start Date [...] Doxycycline Monohydrate 100 MG Oral Capsule Doxycycline Cass hydrate 06/28/2021 12:00:00 AM EDT ORAL completed [facility] ([facility], [facility]) 20 mg 04/21/2021 12:00:00 AM EDT [...] Vaccine/Toxoid 08/13/2020 12:00 :00 AM EDT completed [facility] ([facility]) Medication administered onsite Levothyroxine Sodium 0.05 MG Oral Tablet Levothyroxine Kasieu m 08/13/2020 12:00:00 AM EDT ORAL active M EDENT ([facility]) 175 mcg 01/24/2020 12:00:00 AM EST [...] relationship to randall Policy Randall Plan Information [facility] Health Maintenance Organization (HMO) [id number] Family Dependent 802 [facility] Health Maintenance Organization (O) [id number] Family Dependent [id number] [facility] Trad/MX Commercial [id number] Family Dependent 802 [facility] Trad/MX Medigap Part B [id number] Family Dependent [id number] BCBS [place] O 302/307 [id number] [id number] [facility] Trad/MX Medigap Part B [id number] Family Dependent [id number] [facility] Trad/MX Commercial [id number] Family Dependent 802 [facility] Healthcare Commercial [id number] Self [id number] [facility] Healthcare Commercial [id number] Self [facility] Healthcare Commercial [facility] [id number] Family Dependent [facility] Healthcare Commercial [id number] Family Dependent [id number] [facility] HEALTH CARE [id number] SP [id number] [employer]BS P [id number] P [id number] [employer] P [id number] P [id number] P HEALTH CARE O [id number] S 80 [id number] P HEALTH CARE O [id number] P [id number] [facility] Health Care Health Maintenance Organization ([facility]) [id number] Self [id number] MEDICARE BLUE [facility] [id number] SP [id number] [facility] [id number] SP [id number] [facility] [id number] 80 [id number] [facility] [id number] [facility] [id number] Problems, Conditions, and Diagnoses No Information Surgeries/Procedures Procedure Description Date Indications Data Source(s) Therapeutic, Prophylactic Or Diagnostic Injection Subq/Im 09/27/2021 12:00:00 AM EDT MED[facility] ([facility]) OFFICE OUTPATIENT VISIT 25 MINUTES 09/27/2021 12:00:00 AM EDT MED[facility] ([facility]) OFFICE OUTPATIENT VISIT 25 MINUTES 08/25/2021 12:00:00 AM EDT MED[facility] ([facility]) OFFICE OUTPATIENT VISIT 25 MINUTES 08/17/2021 12:00:00 AM EDT MED[facility] ([facility] ) OFFICE OUTPATIENT VISIT 15 MINUTES 06/28/2021 12:00:00 AM EDT MED[facility] ([facility]) OFFICE OUTPATIENT VISIT 25 MINUTES 05/04/2021 12:00:00 AM EDT MED[facility] ([facility] ) ECG ROUTINE ECG W/LEAST 12 LDS W/I&R 04/15/2021 12:00: 00 AM EDT MED[facility] ([facility]) OFFICE OUTPATIENT VISIT 25 MINUTES 04/15/2021 12:00:00 AM EDT MED[facility] ([facility]) Intermediate Eye Exam Established Patient Intermediate Eye Exam Established Patient 10/10/2020 12:00:00 AM ADILENE BANGURA (Hosea Mckeon MD [facility]) ECHO TTHRC R-T 2D W/WOM-MODE COMPL SPEC&COLR DOP 09/22 12:00:00 AM EDT [facility] ([facility]) Results ID Date Data Source [id number] 09/15/2021 11:17:00 AM EDT [facility] ([facility]) Name Value Range Interpretation Code Description Data Gabbi rce(s) Supporting Document(s) Thyrotropin [Units/volume] in Serum or Plasma by Detec tion limit <= 0.05 mIU/L Laboratory test result [facility] ([facility]) ID Date Data Source [id number] 09/15/2021 11:17:00 AM EDT [facility]) Name Value Range Interpretation Code Description Data Gabbi rce(s) Supporting Document(s) Hemoglobin A1c/Hemoglobin.total in Blood Laboratory test result [facility] ([facility]) ID Date Data Source [id number] 07/14/2021 12:00:00 AM EDT [facility] Name Value Range Interpretation Code Description Data Gabbi rce(s) Supporting Document(s) SARS-CoV2 Rapid Antigen Negative [facility] This lab was reported by [facility]. ID Date Data Source [id number] 04/14/2021 03:08:00 PM EDT [facility] ([facility]) Name Value Range Interpretation Code Description Data Gabbi rce(s) Supporting Document(s) Vitamin B12 Level 477 pg/mL [facility] ([facility]) VITAMIN B12 NORMAL RANGE NORMAL 247 - 911 PG/ML INDETERMINATE 211 - 246 PG/ML DEFICIENT LESS THAN 211 PG/ML Folate 6.0 ng/mL [facility] FOLATE NORMAL RANGE NORMAL GREATER THAN 5.4 NG/ML INDETERMINATE 3.4-5.4 NG/ML DEFICIENT LESS THAN 3.4 NG/ML ID Date Data Source [id number] 04/14/2021 03:07:00 PM EDT [facility] ([facility]) Name Value Range Interpretation Code Description Data Gabbi rce(s) Supporting Document(s) Calcidiol [Mass/volume] in Serum or Plasma 20.6 ng/mL 24.0-80.0 [facility] ([facility]) This test was performed using [employer] I P Vitamin D immunoassay kit. Values obtained with different assay methods should not be used interchangeably. ID Date Data Source [id number] 04/14/2021 03:07:00 PM EDT [facility] ([facility]) Name Value Range Interpretation Code Description Data Gabbi rce(s) Supporting Document(s) Thyrotropin [Units/volume] in Serum or Plasma by Detec tion limit <= 0.05 mIU/L 0.04 uIU/mL 0.36-3.74 [facility] ([facility] ) ID Date Data Source [id number] 04/14/2021 03:07:00 PM EDT [facility] ([facility]) Name Value Range Interpretation Code Description Data Gabbi rce(s) Supporting Document(s) Glucose [Mass/volume] in Serum or Plasma 116 mg/dL 74-99 [facility] ([facility]) 100-125 mg/dL PRE-DIABETES/FASTING >126 mg/dL DIABETES/FASTING Urea nitrogen [Mass/volume] in Serum or Plasma 14 mg/dL 7-18 [facility] ([facility]) Creatinine 1.4 mg/dL 0.6-1.3 [facility] Sodium [Moles/volume] in Serum or Plasma 143 meq/L 136-145 [facility] ([facility]) Chloride [Moles/volume] in Serum or Plasma 107 meq/L 98-107 [facility] ([facility]) Potassium [Moles/volume] in Serum or Plasma 4.6 meq/L 3.5-5.1 [facility] ([facility]) Alkaline phosphatase isoenzyme [Units/volume] in Serum or Pl asma 93 mg/dL 46-116 [facility] ([facility]) Calcium [Mass/volume] in Serum or Plasma 9.3 mg/dL 8.5-10.1 [facility] ([facility]) Carbon dioxide, total [Moles/volume] in Serum or Plasma 27 meq/L 21 -32 [facility] ([facility]) Total Bilirubin 1.4 mg/dL 0.2-1.0 [facility] ([facility]) Aspartate aminotransferase [Enzymatic activity/volume] in Serum or Plasma 35 U/L 15-37 [facility] ([facility] ) Albumin [Mass/volume] in Serum or Plasma 4.3 g/dL 3.4-5.0 [facility] ([facility]) Proteinase 3 Ab [Units/volume] in Serum 7.8 g/dL 6.4-8.2 [facility] ([facility]) Alanine aminotransferase [Enzymatic activity/volume] in Seru m or Plasma 47 U/L 12-78 [facility] Glomerular filtration rate/1.73 sq M pre dicted among non-blacks [Volume Rate/Area] in Serum or Plasma by Creatinine-based formula (MDRD) 51 mL/min [facility] A/G Ratio 1.23 CALC 1.00-1.90 [facility] Glomerular filtration rate/1.73 sq M pre dicted among blacks [Volume Rate/Area] in Serum or Plasma by Creatinine-based formula (MDRD) Laboratory test result [facility] <content>CHRONIC KIDNEY DISEASE STAGING PER NKF</content>
<content></content>
<content>STAGE I & II GFR >= 60 NORMAL TO MILDLY DECREASED</content>
<content>STAGE III GFR 30-59 MODERATELY DECREASED</content>
<content>STAGE IV GFR 15-29 SEVERELY DECREASED</content>
<content>STAGE V GFR <15 VERY LITTLE GFR LEFT</content>
<content>ESRD GFR <15 ON TECHNICAL PLANNER</content>
<content></content> ID Date Data Source [id number] 04/14/2021 03:07:00 PM EDT [facility] Name Value Range Interpretation Code Description Data Gabbi rce(s) Supporting Document(s) Glucose mean value [Mass/volume] in Blood Estimated fr om glycated hemoglobin 114 mg/dL 60-110 [facility] Hemoglobin A1c/Hemoglobin.total in Blood 5.6 % [facility] ([facility]) Lab Result Notes: Pre-Diabetes 5.7 - 6.4 % Diabetes = or > 6.5% ID Date Data Source [id number] 04/14/2021 03:07:00 PM EDT [facility] Name Value Range Interpretation Code Description Data Gabbi rce(s) Supporting Document(s) Leukocytes [#/volume] in Blood by Automated count 6.8 x10*3/UL 4.1-10 .9 [facility] ([facility]) Erythrocytes [#/volume] in Blood by Automated count 5.10 x10*6/UL 4.2 0-6.30 [facility] ([facility]) Hemoglobin [Mass/volume] in Blood 15.7 g/dL 12.0-18.0 [facility] MCV 91.0 fL 80.0-97.0 [facility] ([facility] Hematocrit [Volume Fraction] of Blood by Automated count 46.4 % 3 7.0-51.0 [facility] ([facility]) MCHC 33.8 g/dL 31.0-38.0 [facility] ([facility]) MCH 30.8 pg 26.0-32.0 [facility] ([facility]) Erythrocyte distribution width [Ratio] by Automated count 13.1 % 11.6-13.7 [facility] ([facility]) MPV 9.4 FL 7.8-11.0 [facility] ([facility]) Platelets [#/volume] in Blood by Automated count 254 x10*3/UL 140-440 [facility] ([facility]) Lymph % 19.7 % 10.0-58.5 [facility] ([facility]) Mid % 5.4 % 1.7-9.3 [facility] ([facility] Neut % 74.9 % 37.0-92.0 [facility] ([facility] Lymph # 1.3 x10*3/UL 0.6-4.1 [facility] ([facility]) Mid # 0.4 x10*3/UL 0.1-0.6 [facility] ([facility]) Neut # 5.1 x10*3/UL 2.0-7.8 [facility] ([facility]) ID Date Data Source [id number] 12/15/2020 01:26:00 PM EST [facility] ([facility]) Name Value Range Interpretation Code Description Data Gabbi rce(s) Supporting Document(s) Thyroxine (T4) free [Mass/volume] in Serum or Plasma 1.20 ng/dL 0.76- 1.46 [facility] ([facility]) ID Date Data Source [id number] 12/15/2020 01:25:00 PM EST [facility] ([facility]) Name Value Range Interpretation Code Description Data Gabbi rce(s) Supporting Document(s) Thyrotropin [Units/volume] in Serum or Plasma by Detec tion limit <= 0.05 mIU/L 7.48 uIU/mL 0.36-3.74 [facility] ([facility] ) ID Date Data Source [id number] 12/15/2020 01:25:00 PM EST [facility] ([facility]) Name Value Range Interpretation Code Description Data Gabbi rce(s) Supporting Document(s) Triglyceride [Mass/volume] in Serum or Plasma 146 mg/dL 30-150 [facility] ([facility]) Cholesterol [Mass/volume] in Serum or Plasma 128 mg/dL 131-200 [facility] ([facility]) Cholesterol in HDL [Mass/volume] in Serum or Plasma 27 mg/dL 35-60 [facility] ([facility]) Cholesterol in LDL [Mass/volume] in Serum or Plasma by calcu lation 72 CALC 50-159 [facility] ([facility]) ID Date Data Source [id number] 12/15/2020 01:25:00 PM EST MEDENT ([facility]) Name Value Range Interpretation Code Description Data Gabbi rce(s) Supporting Document(s) Glucose [Mass/volume] in Serum or Plasma 64 mg/dL 74-99 [facility] ([facility]) 100-125 mg/dL PRE-DIABETES/FASTING >126 mg/dL DIABETES/FASTING Urea nitrogen [Mass/volume] in Serum or Plasma 17 mg/dL 7-18 [facility] ([facility]) Sodium [Moles/volume] in Serum or Plasma 141 meq/L 136-145 [facility] ([facility]) Creatinine 1.2 mg/dL 0.6-1.3 [facility]) Potassium [Moles/volume] in Serum or Plasma 4.1 meq/L 3.5-5.1 [facility] ([facility]) Chloride [Moles/volume] in Serum or Plasma 105 meq/L 98-107 [facility] ([facility]) Carbon dioxide, total [Moles/volume] in Serum or Plasma 22 meq/L 21 -32 [facility] ([facility]) Calcium [Mass/volume] in Serum or Plasma 9.2 mg/dL 8.5-10.1 [facility] ([facility]) Alkaline phosphatase isoenzyme [Units/volume] in Serum or Pl asma 91 mg/dL 46-116 [facility] Total Bilirubin 1.7 mg/dL 0.2-1.0 [facility] ([facility]) Aspartate aminotransferase [Enzymatic activity/volume] in Serum or Plasma 24 U/L 15-37 [facility] ([facility] ) Albumin [Mass/volume] in Serum or Plasma 3.8 g/dL 3.4-5.0 [facility] ([facility]) Alanine aminotransferase [Enzymatic activity/volume] in Seru m or Plasma 30 U/L 12-78 [facility] ([facility]) Proteinase 3 Ab [Units/volume] in Serum 6.9 g/dL 6.4-8.2 [facility] ([facility]) A/G Ratio 1.23 CALC 1.00-1.90 [facility] ([facility]) Glomerular filtration rate/1.73 sq M pre dicted among non-blacks [Volume Rate/Area] in Serum or Plasma by Creatinine-based formula (MDRD) Laboratory test result [facility] Glomerular filtration rate/1.73 sq M pre dicted among blacks [Volume Rate/Area] in Serum or Plasma by Creatinine-based formula (MDRD) Laboratory test result [facility] <content>CHRONIC KIDNEY DISEASE STAGING PER NKF</content>
<content></content>
<content>STAGE I & II GFR >= 60 NORMAL TO MILDLY DECREASED</content>
<content>STAGE III GFR 30-59 MODERATELY DECREASED</content>
<content>STAGE IV GFR 15-29 SEVERELY DECREASED</content>
<content>STAGE V GFR <15 VERY LITTLE GFR LEFT</content>
<content>ESRD GFR <15 ON TECHNICAL PLANNER</content>
<content></content> ID Date Data Source [id number] 12/15/2020 01:25:00 PM EST MED[facility] ([facility]) Name Value Range Interpretation Code Description Data Gabbi rce(s) Supporting Document(s) Hemoglobin A1c/Hemoglobin.total in Blood 5.6 % [facility] Lab Result Notes: Pre-Diabetes 5.7 - 6.4 % Diabetes = or > 6.5% Glucose mean value [Mass/volume] in Blood Estimated fr om glycated hemoglobin 114 mg/dL 60-110 [facility] ID Date Data Source [id number] 12/15/2020 01:25:00 PM EST MED[facility] ([facility]) Name Value Range Interpretation Code Description Data Gabbi rce(s) Supporting Document(s) Erythrocytes [#/volume] in Blood by Automated count 4.88 x10*6/UL 4.2 0-6.30 [facility] ([facility]) Leukocytes [#/volume] in Blood by Automated count 6.9 x10*3/UL 4.1-10 .9 [facility] Hematocrit [Volume Fraction] of Blood by Automated count 44.4 % 3 7.0-51.0 [facility] ([facility]) Hemoglobin [Mass/volume] in Blood 15.1 g/dL 12.0-18.0 [facility] ([facility]) MCV 91.0 fL 80.0-97.0 [facility] MCHC 34.1 g/dL 31.0-38.0 [facility] MCH 31.0 pg 26.0-32.0 [facility] Platelets [#/volume] in Blood by Automated count 240 x10*3/UL 140-440 [facility] Erythrocyte distribution width [Ratio] by Automated count 13.1 % 11.6-13.7 [facility] ([facility]) MPV 9.5 FL 7.8-11.0 [facility] Mid % 5.7 % 1.7-9.3 [facility] Lymph % 22.6 % 10.0-58.5 [facility]) Neut % 71.7 % 37.0-92.0 [facility]) Lymph # 1.5 x10*3/UL 0.6-4.1 [facility] ([facility]) Mid # 0.5 x10*3/UL 0.1-0.6 [facility] ([facility]) Neut # 4.9 x10*3/UL 2.0-7.8 [facility] ([facility]) ID Date Data Source [id number] 08/12/2020 10:23:00 AM EDT [facility] ([facility]) Name Value Range Interpretation Code Description Data Gabbi rce(s) Supporting Document(s) Thyrotropin [Units/volume] in Serum or Plasma by Detec tion limit <= 0.05 mIU/L 12.21 uIU/mL 0.36-3.74 [facility] ([facility] ) Thyroxine (T4) free [Mass/volume] in Serum or Plasma 1.28 ng/dL 0.76- 1.46 [facility] ([facility]) ID Date Data Source [id number] 08/12/2020 10:23:00 AM EDT [facility] ([facility]) Name Value Range Interpretation Code Description Data Gabbi rce(s) Supporting Document(s) Cholesterol [Mass/volume] in Serum or Plasma 126 mg/dL 131-200 [facility] ([facility]) Cholesterol in HDL [Mass/volume] in Serum or Plasma 27 mg/dL 35-60 [facility] ([facility]) Triglyceride [Mass/volume] in Serum or Plasma 105 mg/dL 30-150 [facility] ([facility]) Cholesterol in LDL [Mass/volume] in Serum or Plasma by calcu lation 78 CALC 50-159 [facility] ([facility]) ID Date Data Source [id number] 08/12/2020 10:23:00 AM EDT [facility] ([facility]) Name Value Range Interpretation Code Description Data Gabbi rce(s) Supporting Document(s) Glucose [Mass/volume] in Serum or Plasma 106 mg/dL 74-99 [facility] ([facility]) 100-125 mg/dL PRE-DIABETES/FASTING >126 mg/dL DIABETES/FASTING Creatinine 1.3 mg/dL 0.6-1.3 [facility] ([facility]) Urea nitrogen [Mass/volume] in Serum or Plasma 12 mg/dL 7-18 [facility] ([facility]) Potassium [Moles/volume] in Serum or Plasma 4.1 meq/L 3.5-5.1 [facility] ([facility]) Sodium [Moles/volume] in Serum or Plasma 142 meq/L 136-145 [facility] ([facility]) Chloride [Moles/volume] in Serum or Plasma 107 meq/L 98-107 [facility] ([facility]) Calcium [Mass/volume] in Serum or Plasma 8.8 mg/dL 8.5-10.1 [facility] ([facility]) Carbon dioxide, total [Moles/volume] in Serum or Plasma 21 meq/L 21 -32 [facility] ([facility]) Alkaline phosphatase isoenzyme [Units/volume] in Serum or Pl asma 71 mg/dL 46-116 [facility] ([facility]) Total Bilirubin 1.6 mg/dL 0.2-1.0 [facility] ([facility]) Aspartate aminotransferase [Enzymatic activity/volume] in Serum or Plasma 24 U/L 15-37 [facility] ([facility] ) Alanine aminotransferase [Enzymatic activity/volume] in Seru m or Plasma 30 U/L 12-78 [facility] ([facility]) Albumin [Mass/volume] in Serum or Plasma 3.8 g/dL 3.4-5.0 [facility] ([facility]) Proteinase 3 Ab [Units/volume] in Serum 6.9 g/dL 6.4-8.2 [facility] ([facility]) A/G Ratio 1.23 CALC 1.00-1.90 [facility] ([facility]) Glomerular filtration rate/1.73 sq M pre dicted among non-blacks [Volume Rate/Area] in Serum or Plasma by Creatinine-based formula (MDRD) 56 mL/min [facility] ([facility]) Glomerular filtration rate/1.73 sq M pre dicted among blacks [Volume Rate/Area] in Serum or Plasma by Creatinine-based formula (MDRD) Laboratory test result [facility] ([facility]) <content>CHRONIC KIDNEY DISEASE STAGING PER NKF</content>
<content></content>
<content>STAGE I & II GFR >= 60 NORMAL TO MILDLY DECREASED</content>
<content>STAGE III GFR 30-59 MODERATELY DECREASED</content>
<content>STAGE IV GFR 15-29 SEVERELY DECREASED</content>
<content>STAGE V GFR <15 VERY LITTLE GFR LEFT</content>
<content>ESRD GFR <15 ON TECHNICAL PLANNER</content>
<content></content> ID Date Data Source [id number] 08/12/2020 10:23:00 AM EDT [facility] Name Value Range Interpretation Code Description Data Gabbi rce(s) Supporting Document(s) Hemoglobin A1c/Hemoglobin.total in Blood 5.5 g/dL 4.8-5.6 [facility] ([facility]) Lab Result Notes: Pre-Diabetes 5.7 - 6.4 % Diabetes = or > 6.5% Glucose mean value [Mass/volume] in Blood Estimated fr om glycated hemoglobin 111 mg/dL 60-110 [facility] ID Date Data Source [id number] 08/12/2020 10:23:00 AM EDT [facility] Name Value Range Interpretation Code Description Data Gabbi rce(s) Supporting Document(s) Leukocytes [#/volume] in Blood by Automated count 5.8 x10*3/UL 4.1-10 .9 [facility] Erythrocytes [#/volume] in Blood by Automated count 4.80 x10*6/UL 4.2 0-6.30 [facility] Hemoglobin [Mass/volume] in Blood 15.4 g/dL 12.0-18.0 [facility] Hematocrit [Volume Fraction] of Blood by Automated count 44.4 % 3 7.0-51.0 [facility] ([facility]) MCH 32.1 pg 26.0-32.0 [facility] ([facility]) MCV 92.3 fL 80.0-97.0 [facility] ([facility]) MCHC 34.8 g/dL 31.0-38.0 [facility] ([facility]) Platelets [#/volume] in Blood by Automated count 203 x10*3/UL 140-440 [facility] ([facility]) Erythrocyte distribution width [Ratio] by Automated count 12.9 % 11.6-13.7 [facility] ([facility]) Lymph % 21.0 % 10.0-58.5 [facility] ([facility]) MPV 8.9 FL 7.8-11.0 [facility] ([facility] Mid % 6.5 % 1.7-9.3 [facility] ([facility] Lymph # 1.2 x10*3/UL 0.6-4.1 [facility] ([facility]) Neut % 72.5 % 37.0-92.0 [facility] Mid # 0.4 x10*3/UL 0.1-0.6 [facility] ([facility]) Neut # 4.2 x10*3/UL 2.0-7.8 [facility] ([facility]) Procedure Social History Code Duration Value Status Description Data Source(s ) Smoking 08/22/2021 09:02:35 AM EDT Never smoked tobacco (krunali ng) completed Never smoked tobacco (finding) 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, [facility]) Heart rate 52 /min 52 /min [facility] ([facility], [facility]) Respiratory rate 18 /min 18 /min [facility] ( [facility], [facility]) Oxygen saturation in Arterial blood by Pulse oximetry 99 % 99 % [facility] ([facility], [facility]) Body temperature 96.0 [degF] 96.0 [degF] [facility] ([facility], [facility]) Body weight 225.00 [lb_av] 225.00 [lb_av] MEDEN T ([facility], [facility]) Body height 73 [in_i] 73 [in_i] [facility]) 6'1" Body mass index (BMI) [Ratio] 29.7 kg/m2 29.7 k g/m2 [facility] ([facility], [facility]) Systolic blood pressure 147 mm[Hg] 147 mm[Hg] M EDENT ([facility]) Diastolic blood pressure 95 mm[Hg] 95 mm[Hg] [facility] ([facility]) Heart rate 75 /min 75 /min [facility] Body weight 225.00 [lb_av] 225.00 [lb_av] MEDEN T ([facility]) Body mass index (BMI) [Ratio] 30.1 kg/m2 30.1 k g/m2 [facility] ([facility] ) Body weight 225.00 [lb_av] 225.00 [lb_av] MEDEN T ([facility], ) Body height 72.5 [in_i] 72.5 [in_i] [facility], ) 6'0.50" [place] body weight 178 [lb_av] 178 [lb_av] MEDEN T ([facility], ) Respiratory rate 12 /min 12 /min [facility] ( [facility], ) Systolic blood pressure 118 mm[Hg] 118 mm[Hg] M EDENT ([facility], [facility]) Diastolic blood pressure 20 mm[Hg] 20 mm[Hg] [facility] ([facility], [facility]) Heart rate 81 /min 81 /min [facility] ([facility], [facility]) Respiratory rate 15 /min 15 /min [facility] ( [facility], [facility]) Oxygen saturation in Arterial blood by Pulse oximetry 100 % 100 % [facility] ([facility], [facility]) Body temperature 96.6 [degF] 96.6 [degF] [facility] ([facility]) Body weight 230.00 [lb_av] 230.00 [lb_av] MEDEN T ([facility]) Body height 72 [in_i] 72 [in_i] [facility] ([facility]) 6'0" Body mass index (BMI) [Ratio] 31.2 kg/m2 31.2 k g/m2 [facility] ([facility]) Body height 72.5 [in_i] 72.5 [in_i] [facility] ([facility], ) 6'0.50" Respiratory rate 12 /min 12 /min [facility] ( [facility], ) Body mass index (BMI) [Ratio] 33.4 kg/m2 33.4 k g/m2 [facility] ([facility], ) [place] body weight 178 [lb_av] 178 [lb_av] MEDEN T ([facility], ) Body weight 250.00 [lb_av] 250.00 [lb_av] MEDEN T ([facility], ) Heart rate 72 /min 72 /min [facility] ([facility]) Systolic blood pressure 112 mm[Hg] 112 mm[Hg] EDENT ([facility]) Diastolic blood pressure 68 mm[Hg] 68 mm[Hg] [facility] ([facility]) Body height 72.25 [in_i] 72.25 [in_i] [facility] 6'0.25" Body weight 259.00 [lb_av] 259.00 [lb_av] MEDEN T ([facility]) Body mass index (BMI) [Ratio] 34.9 kg/m2 34.9 k g/m2 [facility] ([facility]) Body height 72.25 [in_i] 72.25 [in_i] [facility] 6'0.25" Body mass index (BMI) [Ratio] 36.8 kg/m2 36.8 k g/m2 [facility] ([facility]) Body weight 273.00 [lb_av] 273.00 [lb_av] MEDEN T ([facility]) Systolic blood pressure 130 mm[Hg] 130 mm[Hg] M EDSHANT ([facility]) Diastolic blood pressure 76 mm[Hg] 76 mm[Hg] QUENTIN ([facility]) Heart rate 76 /min 76 /min QU[facility] ([facility]) Body weight 290.00 [lb_av] 290.00 [lb_av] HOMERO Combs ([facility])
[2021-09-27 14:46] LABS: BASO % 0.2 % (0.0-1.0); HEMATOCRIT 43.9 % (42.0-52.0); LYMPH # 0.6 10^3/uL (1.5-5.0); LYMPH % 4.1 % (24.0-44.0); MEAN CORPUSCULAR HEMOGLOBIN 33.4 pg (27.0-33.0); MEAN CORPUSCULAR HGB CONC 34.2 g/dl (32.0-36.5); MEAN CORPUSCULAR VOLUME 97.8 fl (80.0-96.0); MONO # 0.7 10^3/uL (0.0-0.8); NEUTROPHILS # 13.3 10^3/uL (1.5-8.5); NEUTROPHILS % 90.2 % (36.0-66.0); PLATELET COUNT, AUTOMATED 239 10^3/uL (150-450); RED BLOOD COUNT 4.49 10^6/uL (4.30-6.10); WHITE BLOOD COUNT 14.8 10^3/uL (4.0-10.0)
[2021-09-27 15:14] LABS: ALBUMIN 3.7 GM/DL (3.2-5.2); ALT/SGPT 32 U/L (12-78); BILIRUBIN,DIRECT 0.4 MG/DL (0.0-0.2); BILIRUBIN,TOTAL 1.4 MG/DL (0.2-1.0); BLOOD UREA NITROGEN 11 MG/DL (7-18); CARBON DIOXIDE LEVEL 28 MEQ/L (21-32); CHLORIDE LEVEL 105 MEQ/L (98-107); CREATININE FOR GFR 0.92 MG/DL (0.70-1.30); GLOMERULAR FILTRATION RATE > 60.0 (>49); GLUCOSE, FASTING 125 MG/DL (70-100); LIPASE 77 U/L (73-393); POTASSIUM SERUM 4.1 MEQ/L (3.5-5.1); SODIUM LEVEL 138 MEQ/L (136-145); TOTAL PROTEIN 7.2 GM/DL (6.4-8.2)
[2021-09-27] MEDS ORDERED: ONDANSETRON 4MG/2ML VIAL IV ONE (16:05)
[2021-09-27] MEDS ORDERED: PANTOPRAZOLE 40MG VIAL (C9113 PER 1) IV ONE (16:05)
[2021-09-27] MEDS ORDERED: MORPHINE 4 MG/ML 1ML VIAL/SYRINGE (J2270) IV ONE (16:05)
[2021-09-27 16:34] LABS: CK-MB VALUE MASS 2.5 NG/ML (<3.6); CPK CREATINE PHOSPHOKINASE 166 U/L (39-308); MB/CK RELATIVE INDEX 1.51 (< OR =4); TROPONIN I 0.08 NG/ML (< 0.10)
[2021-09-27] MEDS: GASTROGRAFIN SOLUTION 30ML PO SCH ×2 (16:34→17:05)
[2021-09-27] MEDS ORDERED: ISOVUE-370 76% 100ML VIAL As Ordered ONE (17:27)
--- NOTE | 2021-09-27 18:07 | REPVR ---
PROCEDURE INFORMATION: Exam: CT Abdomen And Pelvis With Contrast Exam date and time: 09/27/2021 5:31 PM Age: 66 years old Clinical indication: Other: Diffuse abd pain, h/o gastric bypass TECHNIQUE: Imaging protocol: Computed tomography of the abdomen and pelvis with contrast. Radiation optimization: All CT scans at this facility use at least one of these dose optimization techniques: automated exposure control; mA and/or kV adjustment per patient size (includes targeted exams where dose is matched to clinical indication); or iterative reconstruction. Contrast material: ISOVUE 370; Contrast volume: 100 ml; Contrast route: INTRAVENOUS (IV); COMPARISON: CT ABD PELVIS W/O CONTRAST 06/27/2018 4:38 PM FINDINGS: Lungs: 4.4 mm and 4.6 mm smooth bordered noncalcified pulmonary parenchymal nodules in the right lower lobe not previously demonstrated. The more cephalic nodule likely omitted from the plane of section on the prior examination. 5 mm noncalcified nodule left lower lobe stable. Liver: There is a diffuse decrease in hepatic parenchymal density, consistent with steatosis. Gallbladder and bile ducts: Well-distended gallbladder demonstrates mild wall thickening and mild pericholecystic inflammation, without calcified calculi, findings which may indicate acute cholecystitis in the appropriate clinical setting. Ultrasound correlation may be helpful if clinically desired. Pancreas: Normal. No ductal dilation. Spleen: Normal. No splenomegaly. Adrenal glands: Normal. No mass. Kidneys and ureters: Bilateral simple renal cysts measure up to 3 cm in the left kidney. No follow-up suggested. Stomach and bowel: This patient is status post gastric bypass surgery. Appendix: No evidence of appendicitis. Intraperitoneal space: Unremarkable. No free air. No significant fluid collection. Vasculature: Unremarkable. No abdominal aortic aneurysm. Lymph nodes: Unremarkable. No enlarged lymph nodes. Urinary bladder: Unremarkable as visualized. Reproductive: The prostate gland demonstrates moderate hyperplasia. Bones/joints: Mild central spinal stenosis L3-L4, moderate to severe central spinal stenosis L4-L5. Bulging annulus L5-S1. Soft tissues: Small left inguinal hernia without incarceration. IMPRESSION: 1. Small noncalcified pulmonary parenchymal nodules at the lung bases likely postinflammatory. For patients at low risk (minimal or absent history of smoking and of other known risk factors), no routine follow-up is indicated. For patients at high risk (history of smoking or of other known risk factors), consider optional CT Chest at 12 months. (Reference: Tara) References: Tara Griggs et al. Guidelines for Management of Incidental Pulmonary Nodules Detected on CT Images: From the Fleischner Society 2017. Radiology. 2017;284(1):228-243. 2. There is a diffuse decrease in hepatic parenchymal density, consistent with steatosis. 3. Well-distended gallbladder demonstrates mild wall thickening and mild pericholecystic inflammation, without calcified calculi, findings which may indicate acute cholecystitis in the appropriate clinical setting. Ultrasound correlation may be helpful if clinically desired. 4. This patient is status post gastric bypass surgery. 5. Moderate prostatic hyperplasia. COMMENTS: Consistent with the [employer]'s Incidental Findings Committee white paper (J Am Raphael Radiol 2018): Any incidental renal lesion less than 1 cm or classified as too small to characterize, or any incidental cystic renal lesion characterized as simple-appearing, is likely benign. No follow-up imaging is recommended for these lesions per consensus recommendations based on imaging criteria. Electronically signed by: Anshu Leos On 09/27/2021 18:06:39 PM
--- NOTE | 2021-09-27 18:17 | REPVR ---
PROCEDURE INFORMATION: Exam: CTA Chest With Contrast Exam date and time: 09/27/2021 5:31 PM Age: 66 years old Clinical indication: Other: Epigastric pain, abd pain, back pain TECHNIQUE: Imaging protocol: Computed tomographic angiography of the chest with contrast. 3D rendering (Not supervised by radiologist): MIP and/or 3D reconstructed images were created by the technologist. Radiation optimization: All CT scans at this facility use at least one of these dose optimization techniques: automated exposure control; mA and/or kV adjustment per patient size (includes targeted exams where dose is matched to clinical indication); or iterative reconstruction. Contrast material: ISOVUE 370; Contrast volume: 100 ml; Contrast route: INTRAVENOUS (IV); COMPARISON: CT ABD PELVIS W/O CONTRAST 06/27/2018 4:38 PM FINDINGS: Pulmonary arteries: There are no pulmonary emboli. Aorta: There is fusiform dilatation of the supravalvular ascending thoracic aorta which measures 4.8 cm. maximally. There is no dissection or saccular component. Lungs: Scattered subpleural noncalcified pulmonary parenchymal nodules measuring up to 6 mm in the right middle lobe. These are most likely postinflammatory. One nodule in the left lower lobe demonstrated on prior abdominal study of 06/27/2016 is unchanged where is a 2nd nodule in the right lung base measuring 5 mm was not previously demonstrated. Lungs otherwise clear. Pleural spaces: Unremarkable. No pneumothorax. No pleural effusion. Heart: Unremarkable. No cardiomegaly. No pericardial effusion. Lymph nodes: Unremarkable. No enlarged lymph nodes. Bones/joints: The spine demonstrates mild degenerative changes. Soft tissues: Unremarkable. IMPRESSION: 1. Multiple bilateral noncalcified pulmonary parenchymal nodules measuring up to 6 mm as described above. For patients at low risk (minimal or absent history of smoking and of other known risk factors), no routine follow-up is indicated. For patients at high risk (history of smoking or of other known risk factors), consider optional CT Chest at 12 months. (Reference: Tara) References: Tara Griggs et al. Guidelines for Management of Incidental Pulmonary Nodules Detected on CT Images: From the Fleischner Society 2017. Radiology. 2017;284(1):228-243. 2. There is fusiform dilatation of the supravalvular ascending thoracic aorta which measures 4.8 cm. maximally. There is no dissection or saccular component. 3. There are no pulmonary emboli. Electronically signed by: Anshu Leos On 09/27/2021 18:17:22 PM
[2021-09-27 18:56] LABS: MAGNESIUM LEVEL 1.8 MG/DL (1.8-2.4); NT-PRO BNP 1697 PG/ML (<125)
[2021-09-27] MEDS ORDERED: PIPERACILLIN/TAZOBACTAM SOD 3.375 GM in D5W MINI-BAG PLUS 50 ML IV ONE (19:20)
--- NOTE | 2021-09-27 19:25 | REP ---
INDICATION: concern for cholecystitis. COMPARISON: None. TECHNIQUE: Real-time sonographic evaluation of the right upper quadrant with Doppler FINDINGS: The hepatic parenchymal echo pattern is within normal limits. There is no evidence of a mass or ductal dilatation. The common bile duct measures 4 mm. The gallbladder is enlarged and there is gallbladder wall thickening with pericholecystic edema. There is no evidence of cholelithiasis. The pancreas could not be visualized due to the patient's intestinal gas pattern. The imaged portion the right kidney shows cysts IMPRESSION: There is mild enlargement of gallbladder with mild wall thickening and slight pericholecystic fluid. Acute cholecystitis cannot be ruled out. <Electronically signed by Colin Mason > 09/27/211920
[2021-09-27] MEDS ORDERED: ONETAB9 PO (19:39)
[2021-09-27] MEDS ORDERED: LEVO50TA5 PO (19:39)
[2021-09-27] MEDS ORDERED: HOME MED LIST COMPLETE! XX SCH (19:40)
[2021-09-27] MEDS ORDERED: ONDANSETRON 4MG/2ML VIAL IV PRN (21:45)
[2021-09-27] MEDS ORDERED: MORPHINE 2 MG/ML 1ML VIAL (J2270) IV PRN (21:45)
[2021-09-27] MEDS: NS 1,000 ML IV SCH (21:45)
[2021-09-27] MEDS ORDERED: KETOROLAC 30 MG/ML 1ML VIAL IV PRN (21:45)
--- OUTSIDE RECORDS SUMMARY | 2021-09-27 22:52 | CCD ---
Author Author [facility] Organization [facility] Address Unknown Phone Unavailable Care Team Providers Care Python Architect Name Role Phone Yesenia DASILVA Unavailable Unavailable [...] MD Unavailable Unavailable RaizaDarvin MD Unavailable Unavailable MarmoraDarvin MD Unavailable Unavailable MarmoraDarvin MD Unavailable Unavailable RaizaaDrvin MD Unavailable Unavailable RaizaDarvin MD Unavailable Unavailable RaizaDarvin MD Unavailable Unavailable RaizaDarvin MD Unavailable Unavailable MarmoraDarvin MD Unavailable Unavailable MarmoraDarvin MD Unavailable Unavailable RaizaDarvin MD Unavailable Unavailable RaizaDarvin MD Unavailable Unavailable RaizaDarvin MD Unavailable Unavailable MarmoraDarvin MD Unavailable Unavailable MarmoraDarvin MD Unavailable Unavailable MarmoraDarvin MD Unavailable Unavailable RaizaDarvin MD Unavailable Unavailable RaizaDarvin MD Unavailable Unavailable MarmoraDarvin MD Unavailable Unavailable RaizaDarvin MD Unavailable Unavailable MarmoraDarvin MD Unavailable Unavailable MarmoraDarvin MD Unavailable Unavailable MarmoraDarvin MD Unavailable Unavailable RaizaDarvin MD Unavailable Unavailable MarmoraDarvin MD Unavailable Unavailable MarmoraDarvin MD Unavailable Unavailable MarmoraDarvin MD Unavailable Unavailable MarmoraDarvin MD Unavailable Unavailable MarmoraDarvin MD Unavailable Unavailable MarmoraDarvin MD Unavailable Unavailable MarmoraDarvin MD Unavailable Unavailable MarmoraDarvin MD Unavailable Unavailable MarmoraDarvin MD Unavailable Unavailable RaizaDarvin MD Unavailable Unavailable MarmoraDarvin MD Unavailable Unavailable MarmoraDarvin MD Unavailable Unavailable MarmoraDarvin MD Unavailable Unavailable RaizaDarvin MD Unavailable Unavailable RaizaDarvin MD Unavailable Unavailable RaizaDarvin MD Unavailable Unavailable RaizaDarvin MD Unavailable Unavailable RaizaDarvin MD Unavailable Unavailable MarmoraDarvin MD Unavailable Unavailable RaizaDarvin MD Unavailable Unavailable RaizaDarvin MD Unavailable Unavailable MarmoraDarvin MD Unavailable Unavailable MarmoraDarvin MD Unavailable Unavailable RaizaDarvin MD Unavailable Unavailable RaizaDarvin MD Unavailable Unavailable RaizaDarvin MD Unavailable Unavailable RaizaDarvin MD Unavailable Unavailable MarmoraDarvin MD Unavailable Unavailable MarmoraDarvin MD Unavailable Unavailable MarmoraDarvin MD Unavailable Unavailable MarmoraDarvin MD Unavailable Unavailable Marmora, F Mejía MD Unavailable Unavailable RaizaDarvin pinto MD Unavailable Unavailable MarmoraDarvin MD Unavailable Unavailable MarmoraDarvin pinto MD Unavailable Unavailable MarmoraDarvin MD Unavailable Unavailable MarmoraDarvin MD Unavailable Unavailable RaizaDarvin MD Unavailable Unavailable RaizaDarvin MD Unavailable Unavailable MarmoraDarvin MD Unavailable Unavailable MarmoraDarvin MD Unavailable Unavailable MarmoraDarvin MD Unavailable Unavailable MarmoraDarvin MD Unavailable Unavailable RaizaDarvin MD Unavailable Unavailable RaizaDarvin MD Unavailable Unavailable MarmoraDarvin MD Unavailable Unavailable RaizaDarvin MD Unavailable Unavailable RaizaDarvin MD Unavailable Unavailable MarmoraDarvin MD Unavailable Unavailable MarmoraDarvin MD Unavailable Unavailable MarmoraDarvin pinto MD Unavailable Unavailable RaizaDarvin pinto MD Unavailable Unavailable MarmoraDarvin pinto MD Unavailable Unavailable MarmoraDarvin pinto MD Unavailable Unavailable MarmoraDarvin pinto MD Unavailable Unavailable RaizaDarvin pinto MD Unavailable Unavailable MarmoraDarvin pinto MD Unavailable Unavailable Gonvick, Ros APPLIQUE CUTTER Unavailable Unavailable Gonvick, Ros APPLIQUE CUTTER Unavailable Unavailable Gonvick, Ros APPLIQUE CUTTER Unavailable Unavailable Gonvick, Ros APPLIQUE CUTTER Unavailable Unavailable Gonvick, Ros APPLIQUE CUTTER Unavailable Unavailable Gonvick, Ros APPLIQUE CUTTER Unavailable Unavailable Gonvick, Ros APPLIQUE CUTTER Unavailable Unavailable Gonvick, Ros APPLIQUE CUTTER Unavailable Unavailable Gonvick, Ros APPLIQUE CUTTER Unavailable Unavailable Gonvick, Ros APPLIQUE CUTTER Unavailable Unavailable Gonvick, Ros APPLIQUE CUTTER Unavailable Unavailable Gonvick, Ros APPLIQUE CUTTER Unavailable Unavailable Gonvick, Ros APPLIQUE CUTTER Unavailable Unavailable Gonvick, Ros APPLIQUE CUTTER Unavailable Unavailable Gonvick, Ros APPLIQUE CUTTER Unavailable Unavailable Gonvick, Ros APPLIQUE CUTTER Unavailable Unavailable Gonvick, Ros APPLIQUE CUTTER Unavailable Unavailable Gonvick, Ros APPLIQUE CUTTER Unavailable Unavailable Gonvick, Ros APPLIQUE CUTTER Unavailable Unavailable Gonvick, Ros APPLIQUE CUTTER Unavailable Unavailable Gonvick, Ros APPLIQUE CUTTER Unavailable Unavailable Gonvick, Ros APPLIQUE CUTTER Unavailable Unavailable Gonvick, Ros APPLIQUE CUTTER Unavailable Unavailable Gonvick, Ros APPLIQUE CUTTER Unavailable Unavailable Gonvick, Ros APPLIQUE CUTTER Unavailable Unavailable Gonvick, Ros APPLIQUE CUTTER Unavailable Unavailable Gonvick, Ros APPLIQUE CUTTER Unavailable Unavailable Gonvick, Ros APPLIQUE CUTTER Unavailable Unavailable Gonvick, Rso APPLIQUE CUTTER Unavailable Unavailable Gonvick, Ros APPLIQUE CUTTER Unavailable Unavailable Gonvick, Ros APPLIQUE CUTTER Unavailable Unavailable Gonvick, Ros APPLIQUE CUTTER Unavailable Unavailable Gonvick, Ros APPLIQUE CUTTER Unavailable Unavailable Gonvick, Ros APPLIQUE CUTTER Unavailable Unavailable Gonvick, Ros APPLIQUE CUTTER Unavailable Unavailable Gonvick, Ros APPLIQUE CUTTER Unavailable Unavailable WINNIE, ADELAIDA PA Unavailable Unavailable [...] Yojana Middleton MD Unavailable Unavailable Emi O [place] Unavailable Unavailable Yojana Middleton MD Unavailable Unavailable [...] is protected by Article 27-F of the [facility] Public Health law. If you continue you may have access to information: Regarding HIV / AIDS; Provided by facilities licensed or operated by the [facility] Office of Mental Health; or Provided by the [facility] Office for People With Developmental Disabilities. If such information is present, then the following [facility] mandated warning applies: This information has been [...] law may result in a fine or care home sentence or both. A general authorization for the release of medical or other information is NOT sufficient authorization for further disc losure. Allergies and Adverse Reactions Type Description Substance Reaction Status Data Source(s ) Allergy to substance No Known Allergies No known allergies (situation ) WILLEM (Kirt Mckeon MD [facility]) Family History Family Member Name Family Member Gender Family Member Status Date o f Status Description Data Source(s) Unknown Male Problem [facility] Encounters Encounter Providers Location Date Indications Data Source(s ) Outpatient Attender: HOLLIE reynosoy 09/27/2021 08:20:00 AM EDT [facility] ([facility]) Outpatient Attender: Rose Marie Warren [facility] Main Office 08/25/2021 12:00:00 PM EDT [facility] ([facility]) Outpatient Attender: Nikki Middleton MD [facility] office - [facility] 08/17/2021 01:30:00 PM EDT [facility] ([facility]) Outpatient Attender: ADELAIDA churchill 06/28/2021 08:00:00 AM EDT [facility] ([facility], [facility]) Outpatient Attender: Nikki Middleton MD [facility] office - [facility] 05/04/2021 01:30:00 PM EDT [facility] ([facility]) Outpatient Attender: Alfonzo Lamb 0 04/15/2021 03:00:00 PM EDT [facility] ([facility] ) Outpatient Attender: Alfonzo Lamb 0 12/16/2020 01:00:00 PM EST [facility] ([facility] ) Outpatient<td ID="encounterTypeDescripti onID0">1 Year Follow-Up</td><td>Kirt Millan MD, FACS</td><td>Kirt Millan MD [facility]</td><td>10/10/2020</td><td>7:59AM</td><td>8:53AM</td><td><content ID="encounterDiagnosisID0-0">Myasthenia Gravis</content>, <content ID="encounterDiagnosisID0-1">Conjunctivitis Chronic Allergic</content>, <content ID="encounterDiagnosisID0-2">Dry Eye Syndrome Both Eyes</content>, <content ID="encounterDiagnosisID0-3">Vitreous Disorders Degeneration</content></td> Attender: Kirt Mckeon MD, FACS Kirt Millan MD [facility] 10/10/2020 07:59:0 0 AM EST - 10/10/2020 08:53:00 AM EST Vitreous Disorders DegenerationMyastheni a GravisDry Eye Syndrome Both EyesConjunctivitis Chronic Allergic WILLEM (Kirt Mckeon MD [facility]) Vitreous Disorders Degeneration Myasthenia Gravis 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 COVID-19 VACCINE Pfizer 02/07/2021 12:00:00 AM EST completed [facility] Vaccine Series Complete: YESThis Data wa s Submitted to [facility] [employer]. COVID-19 VACCINE Pfizer 01/17/2021 12:00:00 AM EST completed [facility] Vaccine Series Complete: NOThis Data was Submitted to [facility] [employer]. Influenza, injectable, MDCK, preservative free, axel valent 08/13/2020 02:31:00 PM EDT completed [facility] ([facility]) Medications Medication Brand Name Start Date Product [...] Doxycycline Monohydrate 100 MG Oral Capsule Doxycycline Eaton hydrate 06/28/2021 12:00:00 AM EDT ORAL completed [facility] ([facility], [facility]) 20 mg 04/21/2021 12:00:00 AM EDT capsule,delayed [...] 08/13/2020 12:00 :00 AM EDT completed [facility] ([facility]) Medication administered onsite Levothyroxine Sodium 0.05 MG Oral Tablet Levothyroxine Kasieu m 08/13/2020 12:00:00 AM EDT ORAL active M EDENT ([facility]) 175 mcg 01/24/2020 12:00:00 AM EST [...] type / Coverage type Policy ID Covered libertarian ID Covered libertarian's relationship to randall Policy Randall Plan Information [facility] Health Maintenance Organization (HMO) [id number] Family Dependent 802 [facility] Health Maintenance Organization (O) [id number] Family Dependent [id number] [facility] Trad/MX Commercial [id number] Family Dependent 802 [facility] Trad/MX Medigap Part B [id number] Family Dependent [id number] BCBS [place] O 302/[id number] [id number] [facility] Trad/MX Medigap Part B [id number] Family Dependent [id number] [facility] Trad/MX Commercial [id number] Family Dependent 802 [facility] Healthcare Commercial [id number] Self [id number] [facility] Healthcare Commercial [id number] Self [facility] Healthcare Commercial [facility] [address] Family Dependent [facility] Healthcare Commercial [id number] Family Dependent [id number] [facility] HEALTH CARE [id number] SP [id number] [employer] P [id number] P [id number] [employer] P [id number] P [id number] P HEALTH CARE O [id number] S [id number] P HEALTH CARE O [id number] P [id number] [facility] Health Care Health Maintenance Organization ([facility]) [id number] Self [id number] MEDICARE [facility] [id number] SP [id number] [facility] [id number] SP 80 [id number] [facility] [id number] 80 [id number] [facility] [id number] [facility] [id number] Problems, Conditions, and Diagnoses No Information Surgeries/Procedures Procedure Description Date Indications Data Source(s) Therapeutic, Prophylactic Or Diagnostic Injection Subq/Im 09/27/2021 12:00:00 AM EDT MED[facility] ([facility], [facility]) OFFICE OUTPATIENT VISIT 25 MINUTES 09/27/2021 12:00:00 AM EDT [facility] ([facility]) OFFICE OUTPATIENT VISIT 25 MINUTES 08/25/2021 12:00:00 AM EDT [facility] ([facility]) OFFICE OUTPATIENT VISIT 25 MINUTES 08/17/2021 12:00:00 AM EDT [facility] ([facility] ) OFFICE OUTPATIENT VISIT 15 MINUTES 06/28/2021 12:00:00 AM EDT MED[facility] ([facility]) OFFICE OUTPATIENT VISIT 25 MINUTES 05/04/2021 12:00:00 AM EDT [facility] ([facility] ) ECG ROUTINE ECG W/LEAST 12 LDS W/I&R 04/15/2021 12:00: 00 AM EDT [facility] ([facility]) OFFICE OUTPATIENT VISIT 25 MINUTES 04/15/2021 12:00:00 AM EDT [facility] ([facility]) Intermediate Eye Exam Established Patient Intermediate Eye Exam Established Patient 10/10/2020 12:00:00 AM ADILENE BANGURA (Hosea Mckeon MD [facility]) ECHO TTHRC R-T 2D W/WOM-MODE COMPL SPEC&COLR DOP 09/22 12:00:00 AM EDT [facility] ([facility]) Results ID Date Data Source [id number] 09/15/2021 11:17:00 AM EDT [facility] ([facility]) Name Value Range Interpretation Code Description Data Gabbi rce(s) Supporting Document(s) Thyrotropin [Units/volume] in Serum or Plasma by Detec tion limit <= 0.05 mIU/L Laboratory test result [facility] ([facility]) ID Date Data Source [id number] 09/15/2021 11:17:00 AM EDT [facility] ([facility]) Name Value Range Interpretation Code Description Data Gabbi rce(s) Supporting Document(s) Hemoglobin A1c/Hemoglobin.total in Blood Laboratory test result [facility] ([facility]) ID Date Data Source [id number] 07/14/2021 12:00:00 AM EDT [facility] Name Value Range Interpretation Code Description Data Gabbi rce(s) Supporting Document(s) SARS-CoV2 Rapid Antigen Negative [facility] This lab was reported by [facility]. ID Date Data Source [id number] 04/14/2021 03:08:00 PM EDT [facility] ([facility]) Name Value Range Interpretation Code Description Data Gabbi rce(s) Supporting Document(s) Vitamin B12 Level 477 pg/mL MED[facility] ([facility]) VITAMIN B12 NORMAL RANGE NORMAL 247 - 911 PG/ML INDETERMINATE 211 - 246 PG/ML DEFICIENT LESS THAN 211 PG/ML Folate 6.0 ng/mL [facility] FOLATE NORMAL RANGE NORMAL GREATER THAN 5.4 NG/ML INDETERMINATE 3.4-5.4 NG/ML DEFICIENT LESS THAN 3.4 NG/ML ID Date Data Source [id number] 04/14/2021 03:07:00 PM EDT [facility] ([facility]) Name Value Range Interpretation Code Description Data Gabbi rce(s) Supporting Document(s) Calcidiol [Mass/volume] in Serum or Plasma 20.6 ng/mL 24.0-80.0 [facility] ([facility]) This test was performed using [employer] I P Vitamin D immunoassay kit. Values obtained with different assay methods should not be used interchangeably. ID Date Data Source [id number] 04/14/2021 03:07:00 PM EDT [facility] ([facility]) Name Value Range Interpretation Code Description Data Gabbi rce(s) Supporting Document(s) Thyrotropin [Units/volume] in Serum or Plasma by Detec tion limit <= 0.05 mIU/L 0.04 uIU/mL 0.36-3.74 [facility] ([facility] ) ID Date Data Source [id number] 04/14/2021 03:07:00 PM EDT [facility] ([facility]) Name Value Range Interpretation Code Description Data Gabbi rce(s) Supporting Document(s) Glucose [Mass/volume] in Serum or Plasma 116 mg/dL 74-99 [facility] ([facility]) 100-125 mg/dL PRE-DIABETES/FASTING >126 mg/dL DIABETES/FASTING Urea nitrogen [Mass/volume] in Serum or Plasma 14 mg/dL 7-18 [facility] ([facility]) Creatinine 1.4 mg/dL 0.6-1.3 [facility] Sodium [Moles/volume] in Serum or Plasma 143 meq/L 136-145 [facility] ([facility]) Chloride [Moles/volume] in Serum or Plasma 107 meq/L 98-107 [facility] ([facility]) Potassium [Moles/volume] in Serum or Plasma 4.6 meq/L 3.5-5.1 [facility] ([facility]) Alkaline phosphatase isoenzyme [Units/volume] in Serum or Pl asma 93 mg/dL 46-116 [facility] ([facility]) Calcium [Mass/volume] in Serum or Plasma 9.3 mg/dL 8.5-10.1 [facility] ([facility]) Carbon dioxide, total [Moles/volume] in Serum or Plasma 27 meq/L 21 -32 [facility] ([facility]) Total Bilirubin 1.4 mg/dL 0.2-1.0 [facility] ([facility]) Aspartate aminotransferase [Enzymatic activity/volume] in Serum or Plasma 35 U/L 15-37 [facility] ([facility] ) Albumin [Mass/volume] in Serum or Plasma 4.3 g/dL 3.4-5.0 [facility] ([facility]) Proteinase 3 Ab [Units/volume] in Serum 7.8 g/dL 6.4-8.2 [facility] ([facility]) Alanine aminotransferase [Enzymatic activity/volume] in Seru m or Plasma 47 U/L 12-78 [facility] Glomerular filtration rate/1.73 sq M pre dicted among non-blacks [Volume Rate/Area] in Serum or Plasma by Creatinine-based formula (MDRD) 51 mL/min [facility] A/G Ratio 1.23 CALC 1.00-1.90 [facility] Glomerular filtration rate/1.73 sq M pre dicted among blacks [Volume Rate/Area] in Serum or Plasma by Creatinine-based formula (MDRD) Laboratory test result [facility] <content>CHRONIC KIDNEY DISEASE STAGING PER NKF</content>
<content></content>
<content>STAGE I & II GFR >= 60 NORMAL TO MILDLY DECREASED</content>
<content>STAGE III GFR 30-59 MODERATELY DECREASED</content>
<content>STAGE IV GFR 15-29 SEVERELY DECREASED</content>
<content>STAGE V GFR <15 VERY LITTLE GFR LEFT</content>
<content>ESRD GFR <15 ON RECEPTION AGENT</content>
<content></content> ID Date Data Source [id number] 04/14/2021 03:07:00 PM EDT [facility] Name Value Range Interpretation Code Description Data Gabbi rce(s) Supporting Document(s) Glucose mean value [Mass/volume] in Blood Estimated fr om glycated hemoglobin 114 mg/dL 60-110 [facility] Hemoglobin A1c/Hemoglobin.total in Blood 5.6 % [facility] ([facility]) Lab Result Notes: Pre-Diabetes 5.7 - 6.4 % Diabetes = or > 6.5% ID Date Data Source [id number] 04/14/2021 03:07:00 PM EDT [facility] Name Value Range Interpretation Code Description Data Gabbi rce(s) Supporting Document(s) Leukocytes [#/volume] in Blood by Automated count 6.8 x10*3/UL 4.1-10 .9 [facility] ([facility]) Erythrocytes [#/volume] in Blood by Automated count 5.10 x10*6/UL 4.2 0-6.30 [facility] ([facility]) Hemoglobin [Mass/volume] in Blood 15.7 g/dL 12.0-18.0 [facility] MCV 91.0 fL 80.0-97.0 [facility] Hematocrit [Volume Fraction] of Blood by Automated count 46.4 % 3 7.0-51.0 [facility] ([facility]) MCHC 33.8 g/dL 31.0-38.0 [facility]) MCH 30.8 pg 26.0-32.0 [facility] Erythrocyte distribution width [Ratio] by Automated count 13.1 % 11.6-13.7 [facility] ([facility]) MPV 9.4 FL 7.8-11.0 [facility]) Platelets [#/volume] in Blood by Automated count 254 x10*3/UL 140-440 [facility] ([facility]) Lymph % 19.7 % 10.0-58.5 [facility] Mid % 5.4 % 1.7-9.3 [facility] Neut % 74.9 % 37.0-92.0 [facility] Lymph # 1.3 x10*3/UL 0.6-4.1 [facility] ([facility]) Mid # 0.4 x10*3/UL 0.1-0.6 [facility] ([facility]) Neut # 5.1 x10*3/UL 2.0-7.8 [facility] ([facility]) ID Date Data Source [id number] 12/15/2020 01:26:00 PM EST [facility] ([facility]) Name Value Range Interpretation Code Description Data Gabbi rce(s) Supporting Document(s) Thyroxine (T4) free [Mass/volume] in Serum or Plasma 1.20 ng/dL 0.76- 1.46 [facility] ([facility]) ID Date Data Source [id number] 12/15/2020 01:25:00 PM EST [facility] ([facility]) Name Value Range Interpretation Code Description Data Gabbi rce(s) Supporting Document(s) Thyrotropin [Units/volume] in Serum or Plasma by Detec tion limit <= 0.05 mIU/L 7.48 uIU/mL 0.36-3.74 [facility] ([facility] ) ID Date Data Source [id number] 12/15/2020 01:25:00 PM EST [facility] ([facility]) Name Value Range Interpretation Code Description Data Gabbi rce(s) Supporting Document(s) Triglyceride [Mass/volume] in Serum or Plasma 146 mg/dL 30-150 [facility] ([facility]) Cholesterol [Mass/volume] in Serum or Plasma 128 mg/dL 131-200 [facility] ([facility]) Cholesterol in HDL [Mass/volume] in Serum or Plasma 27 mg/dL 35-60 [facility] ([facility]) Cholesterol in LDL [Mass/volume] in Serum or Plasma by calcu lation 72 CALC 50-159 [facility] ([facility]) ID Date Data Source [id number] 12/15/2020 01:25:00 PM EST [facility] ([facility]) Name Value Range Interpretation Code Description Data Gabbi rce(s) Supporting Document(s) Glucose [Mass/volume] in Serum or Plasma 64 mg/dL 74-99 [facility] ([facility]) 100-125 mg/dL PRE-DIABETES/FASTING >126 mg/dL DIABETES/FASTING Urea nitrogen [Mass/volume] in Serum or Plasma 17 mg/dL 7-18 [facility] ([facility]) Sodium [Moles/volume] in Serum or Plasma 141 meq/L 136-145 [facility] ([facility]) Creatinine 1.2 mg/dL 0.6-1.3 [facility] Potassium [Moles/volume] in Serum or Plasma 4.1 meq/L 3.5-5.1 [facility] ([facility]) Chloride [Moles/volume] in Serum or Plasma 105 meq/L 98-107 [facility] ([facility]) Carbon dioxide, total [Moles/volume] in Serum or Plasma 22 meq/L 21 -32 [facility] ([facility]) Calcium [Mass/volume] in Serum or Plasma 9.2 mg/dL 8.5-10.1 [facility] ([facility]) Alkaline phosphatase isoenzyme [Units/volume] in Serum or Pl asma 91 mg/dL 46-116 [facility] Total Bilirubin 1.7 mg/dL 0.2-1.0 [facility] ([facility]) Aspartate aminotransferase [Enzymatic activity/volume] in Serum or Plasma 24 U/L 15-37 [facility] ([facility] ) Albumin [Mass/volume] in Serum or Plasma 3.8 g/dL 3.4-5.0 [facility] ([facility]) Alanine aminotransferase [Enzymatic activity/volume] in Seru m or Plasma 30 U/L 12-78 [facility] ([facility]) Proteinase 3 Ab [Units/volume] in Serum 6.9 g/dL 6.4-8.2 [facility] ([facility]) A/G Ratio 1.23 CALC 1.00-1.90 [facility]) Glomerular filtration rate/1.73 sq M pre dicted among non-blacks [Volume Rate/Area] in Serum or Plasma by Creatinine-based formula (MDRD) Laboratory test result [facility] Glomerular filtration rate/1.73 sq M pre dicted among blacks [Volume Rate/Area] in Serum or Plasma by Creatinine-based formula (MDRD) Laboratory test result [facility] <content>CHRONIC KIDNEY DISEASE STAGING PER NKF</content>
<content></content>
<content>STAGE I & II GFR >= 60 NORMAL TO MILDLY DECREASED</content>
<content>STAGE III GFR 30-59 MODERATELY DECREASED</content>
<content>STAGE IV GFR 15-29 SEVERELY DECREASED</content>
<content>STAGE V GFR <15 VERY LITTLE GFR LEFT</content>
<content>ESRD GFR <15 ON RECEPTION AGENT</content>
<content></content> ID Date Data Source [id number] 12/15/2020 01:25:00 PM EST [facility] ([facility]) Name Value Range Interpretation Code Description Data Gabbi rce(s) Supporting Document(s) Hemoglobin A1c/Hemoglobin.total in Blood 5.6 % [facility] Lab Result Notes: Pre-Diabetes 5.7 - 6.4 % Diabetes = or > 6.5% Glucose mean value [Mass/volume] in Blood Estimated fr om glycated hemoglobin 114 mg/dL 60-110 [facility] ID Date Data Source [id number] 12/15/2020 01:25:00 PM EST [facility] ([facility]) Name Value Range Interpretation Code Description Data Gabbi rce(s) Supporting Document(s) Erythrocytes [#/volume] in Blood by Automated count 4.88 x10*6/UL 4.2 0-6.30 [facility] ([facility]) Leukocytes [#/volume] in Blood by Automated count 6.9 x10*3/UL 4.1-10 .9 [facility] Hematocrit [Volume Fraction] of Blood by Automated count 44.4 % 3 7.0-51.0 [facility] ([facility]) Hemoglobin [Mass/volume] in Blood 15.1 g/dL 12.0-18.0 [facility] ([facility]) MCV 91.0 fL 80.0-97.0 [facility] MCHC 34.1 g/dL 31.0-38.0 [facility] MCH 31.0 pg 26.0-32.0 [facility] Platelets [#/volume] in Blood by Automated count 240 x10*3/UL 140-440 [facility] Erythrocyte distribution width [Ratio] by Automated count 13.1 % 11.6-13.7 [facility] ([facility]) MPV 9.5 FL 7.8-11.0 [facility] Mid % 5.7 % 1[facility]7-9.3 [facility] Lymph % 22.6 % 10.0-58.5 [facility]) Neut % 71.7 % 37.0-92.0 [facility]) Lymph # 1.5 x10*3/UL 0.6-4.1 [facility] ([facility]) Mid # 0.5 x10*3/UL 0.1-0.6 [facility] ([facility]) Neut # 4.9 x10*3/UL 2.0-7.8 [facility] ([facility]) ID Date Data Source [id number] 08/12/2020 10:23:00 AM EDT [facility] ([facility]) Name Value Range Interpretation Code Description Data Gabbi rce(s) Supporting Document(s) Thyrotropin [Units/volume] in Serum or Plasma by Detec tion limit <= 0.05 mIU/L 12.21 uIU/mL 0.36-3.74 [facility] ([facility] ) Thyroxine (T4) free [Mass/volume] in Serum or Plasma 1.28 ng/dL 0.76- 1.46 [facility] ([facility]) ID Date Data Source [id number] 08/12/2020 10:23:00 AM EDT [facility] ([facility]) Name Value Range Interpretation Code Description Data Gabbi rce(s) Supporting Document(s) Cholesterol [Mass/volume] in Serum or Plasma 126 mg/dL 131-200 [facility] ([facility]) Cholesterol in HDL [Mass/volume] in Serum or Plasma 27 mg/dL 35-60 [facility] ([facility]) Triglyceride [Mass/volume] in Serum or Plasma 105 mg/dL 30-150 [facility] ([facility]) Cholesterol in LDL [Mass/volume] in Serum or Plasma by calcu lation 78 CALC 50-159 [facility] ([facility]) ID Date Data Source [id number] 08/12/2020 10:23:00 AM EDT [facility] ([facility]) Name Value Range Interpretation Code Description Data Gabbi rce(s) Supporting Document(s) Glucose [Mass/volume] in Serum or Plasma 106 mg/dL 74-99 [facility] ([facility]) 100-125 mg/dL PRE-DIABETES/FASTING >126 mg/dL DIABETES/FASTING Creatinine 1.3 mg/dL 0.6-1.3 [facility] ([facility]) Urea nitrogen [Mass/volume] in Serum or Plasma 12 mg/dL 7-18 [facility] ([facility]) Potassium [Moles/volume] in Serum or Plasma 4.1 meq/L 3.5-5.1 [facility] ([facility]) Sodium [Moles/volume] in Serum or Plasma 142 meq/L 136-145 [facility] ([facility]) Chloride [Moles/volume] in Serum or Plasma 107 meq/L 98-107 [facility] ([facility]) Calcium [Mass/volume] in Serum or Plasma 8.8 mg/dL 8.5-10.1 [facility] ([facility]) Carbon dioxide, total [Moles/volume] in Serum or Plasma 21 meq/L 21 -32 [facility] ([facility]) Alkaline phosphatase isoenzyme [Units/volume] in Serum or Pl asma 71 mg/dL 46-116 [facility] ([facility]) Total Bilirubin 1.6 mg/dL 0.2-1.0 [facility] ([facility]) Aspartate aminotransferase [Enzymatic activity/volume] in Serum or Plasma 24 U/L 15-37 [facility] ([facility] ) Alanine aminotransferase [Enzymatic activity/volume] in Seru m or Plasma 30 U/L 12-78 [facility] ([facility]) Albumin [Mass/volume] in Serum or Plasma 3.8 g/dL 3.4-5.0 [facility] ([facility]) Proteinase 3 Ab [Units/volume] in Serum 6.9 g/dL 6.4-8.2 [facility] ([facility]) A/G Ratio 1.23 CALC 1.00-1.90 [facility] ([facility]) Glomerular filtration rate/1.73 sq M pre dicted among non-blacks [Volume Rate/Area] in Serum or Plasma by Creatinine-based formula (MDRD) 56 mL/min [facility] ([facility]) Glomerular filtration rate/1.73 sq M pre dicted among blacks [Volume Rate/Area] in Serum or Plasma by Creatinine-based formula (MDRD) Laboratory test result [facility] ([facility]) <content>CHRONIC KIDNEY DISEASE STAGING PER NKF</content>
<content></content>
<content>STAGE I & II GFR >= 60 NORMAL TO MILDLY DECREASED</content>
<content>STAGE III GFR 30-59 MODERATELY DECREASED</content>
<content>STAGE IV GFR 15-29 SEVERELY DECREASED</content>
<content>STAGE V GFR <15 VERY LITTLE GFR LEFT</content>
<content>ESRD GFR <15 ON RECEPTION AGENT</content>
<content></content> ID Date Data Source [id number] 08/12/2020 10:23:00 AM EDT [facility] Name Value Range Interpretation Code Description Data Gabbi rce(s) Supporting Document(s) Hemoglobin A1c/Hemoglobin.total in Blood 5.5 g/dL 4.8-5.6 [facility] ([facility]) Lab Result Notes: Pre-Diabetes 5.7 - 6.4 % Diabetes = or > 6.5% Glucose mean value [Mass/volume] in Blood Estimated fr om glycated hemoglobin 111 mg/dL 60-110 [facility] ([facility] ID Date Data Source [id number] 08/12/2020 10:23:00 AM EDT [facility] Name Value Range Interpretation Code Description Data Gabbi rce(s) Supporting Document(s) Leukocytes [#/volume] in Blood by Automated count 5.8 x10*3/UL 4.1-10 .9 [facility] Erythrocytes [#/volume] in Blood by Automated count 4.80 x10*6/UL 4.2 0-6.30 [facility] Hemoglobin [Mass/volume] in Blood 15.4 g/dL 12.0-18.0 [facility] Hematocrit [Volume Fraction] of Blood by Automated count 44.4 % 3 7.0-51.0 [facility] ([facility]) MCH 32.1 pg 26.0-32.0 [facility] MCV 92.3 fL 80.0-97.0 [facility] ([facility]) MCHC 34.8 g/dL 31.0-38.0 [facility] ([facility]) Platelets [#/volume] in Blood by Automated count 203 x10*3/UL 140-440 [facility] ([facility]) Erythrocyte distribution width [Ratio] by Automated count 12.9 % 11.6-13.7 [facility] ([facility]) Lymph % 21.0 % 10.0-58.5 [facility] ([facility]) MPV 8.9 FL 7.8-11.0 [facility] ([facility] Mid % 6.5 % 1.7-9.3 [facility] ([facility] Lymph # 1.2 x10*3/UL 0.6-4.1 [facility] ([facility]) Neut % 72.5 % 37.0-92.0 [facility] Mid # 0.4 x10*3/UL 0.1-0.6 [facility] ([facility]) Neut # 4.2 x10*3/UL 2.0-7.8 [facility] ([facility]) Procedure Social History Code Duration Value Status Description Data Source(s ) Smoking 08/22/2021 09:02:35 AM EDT Never smoked tobacco (krunali ng) completed Never smoked tobacco (finding) [place] (Kirt Mckeon MD [facility]) Vital Signs ID Date Data Source UNK Name Value Range Interpretation Code Description Data Source(s) Systolic blood pressure 143 mm[Hg] 143 mm[Hg] M [facility] ([facility], [facility]) Diastolic blood pressure 98 mm[Hg] 98 mm[Hg] [facility] ([facility], [facility]) Heart rate 52 /min 52 /min [facility] ([facility], [facility]) Respiratory rate 18 /min 18 /min [facility] ( [facility], [facility]) Oxygen saturation in Arterial blood by Pulse oximetry 99 % 99 % [facility] ([facility], [facility]) Body temperature 96.0 [degF] 96.0 [degF] [facility] ([facility], [facility]) Body weight 225.00 [lb_av] 225.00 [lb_av] [facility] ([facility], [facility]) Body height 73 [in_i] 73 [in_i] [facility] ([facility]) 6'1" Body mass index (BMI) [Ratio] 29.7 kg/m2 29.7 k g/m2 [facility] ([facility], [facility]) Systolic blood pressure 147 mm[Hg] 147 mm[Hg] M [facility] ([facility]) Diastolic blood pressure 95 mm[Hg] 95 mm[Hg] [facility] ([facility]) Heart rate 75 /min 75 /min [facility] ([facility]) Body weight 225.00 [lb_av] 225.00 [lb_av] [facility] ([facility]) Body mass index (BMI) [Ratio] 30.1 kg/m2 30.1 k g/m2 [facility] ([facility], ) Body height 72.5 [in_i] 72.5 [in_i] [facility] ([facility], ) 6'0.50" [place] body weight 178 [lb_av] 178 [lb_av] [facility] T ([facility], ) Body weight 225.00 [lb_av] 225.00 [lb_av] [facility] T ([facility], ) Respiratory rate 12 /min 12 /min [facility] ( [facility], ) Systolic blood pressure 118 mm[Hg] 118 mm[Hg] M [facility] ([facility], [facility]) Diastolic blood pressure 20 mm[Hg] 20 mm[Hg] [facility] ([facility], [facility]) Heart rate 81 /min 81 /min [facility] ([facility], [facility]) Respiratory rate 15 /min 15 /min [facility] ( [facility], [facility]) Oxygen saturation in Arterial blood by Pulse oximetry 100 % 100 % [facility] ([facility], [facility]) Body temperature 96.6 [degF] 96.6 [degF] [facility] ([facility]) Body weight 230.00 [lb_av] 230.00 [lb_av] [facility] T ([facility], [facility]) Body height 72 [in_i] 72 [in_i] [facility] ([facility]) 6'0" Body mass index (BMI) [Ratio] 31.2 kg/m2 31.2 k g/m2 [facility] ([facility]) Respiratory rate 12 /min 12 /min [facility] ( [facility], ) Body height 72.5 [in_i] 72.5 [in_i] [facility] ([facility], ) 6'0.50" Body mass index (BMI) [Ratio] 33.4 kg/m2 33.4 k g/m2 [facility] ([facility], ) Body weight 250.00 [lb_av] 250.00 [lb_av] [facility] T ([facility], ) [place] body weight 178 [lb_av] 178 [lb_av] [facility] T ([facility], ) Heart rate 72 /min 72 /min [facility] ([facility]) Systolic blood pressure 112 mm[Hg] 112 mm[Hg] [facility] ([facility]) Diastolic blood pressure 68 mm[Hg] 68 mm[Hg] [facility] ([facility]) Body height 72.25 [in_i] 72.25 [in_i] [facility] 6'0.25" Body weight 259.00 [lb_av] 259.00 [lb_av] [facility] T ([facility]) Body mass index (BMI) [Ratio] 34.9 kg/m2 34.9 k g/m2 [facility] ([facility]) Body height 72.25 [in_i] 72.25 [in_i] [facility] 6'0.25" Body mass index (BMI) [Ratio] 36.8 kg/m2 36.8 k g/m2 [facility] ([facility]) Body weight 273.00 [lb_av] 273.00 [lb_av] [facility] T ([facility]) Systolic blood pressure 130 mm[Hg] 130 mm[Hg] M EDSHANT ([facility]) Diastolic blood pressure 76 mm[Hg] 76 mm[Hg] [facility] ([facility]) Heart rate 76 /min 76 /min [facility] ([facility]) Body weight 290.00 [lb_av] 290.00 [lb_av] HOMERO Com[facility] ([facility])
--- OUTSIDE RECORDS SUMMARY | 2021-09-27 23:18 | CCD ---
Author Author [facility] Organization [facility] Address Unknown Phone Unavailable Care Team Providers Care Quality Assurance Monitor Body Name Role Phone Yesenia DASILVA Unavailable Unavailable [...] A HOLLIE PA Unavailable Unavailable LETTIERE, A HOLILE PA Unavailable Unavailable LETTIERE, A HOLLIE PA [...] MD Unavailable Unavailable RaizaDarvin MD Unavailable Unavailable OscarDarvin MD Unavailable Unavailable OscarDarvin MD Unavailable Unavailable RaizaDarvin MD Unavailable Unavailable RaizaDarvin MD Unavailable Unavailable RaizaDarvin MD Unavailable Unavailable RaizaDarvin MD Unavailable Unavailable OscarDarvin MD Unavailable Unavailable OscarDarvin MD Unavailable Unavailable RaizaDarvin MD Unavailable Unavailable RaizaDarvin MD Unavailable Unavailable RaizaDarvin MD Unavailable Unavailable OscarDarvin MD Unavailable Unavailable OscarDarvin MD Unavailable Unavailable OscarDarvin MD Unavailable Unavailable RaizaDarvin MD Unavailable Unavailable RaizaDarvin MD Unavailable Unavailable OscarDarvin MD Unavailable Unavailable RaizaDarvin MD Unavailable Unavailable OscarDarvin MD Unavailable Unavailable OscarDarvin MD Unavailable Unavailable OscarDarvin MD Unavailable Unavailable RaizaDarvin MD Unavailable Unavailable OscarDarvin MD Unavailable Unavailable OscarDarvin MD Unavailable Unavailable OscarDarvin MD Unavailable Unavailable OscarDarvin MD Unavailable Unavailable OscarDarvin MD Unavailable Unavailable OscarDarvin MD Unavailable Unavailable OscarDarvin MD Unavailable Unavailable OscarDarvin MD Unavailable Unavailable OscarDarvin MD Unavailable Unavailable RaizaDarvin MD Unavailable Unavailable OscarDarvin MD Unavailable Unavailable OscarDarvin MD Unavailable Unavailable OscarDarvin MD Unavailable Unavailable RaizaDarvin MD Unavailable Unavailable RaizaDarvin MD Unavailable Unavailable RaizaDarvin MD Unavailable Unavailable RaizaDarvin MD Unavailable Unavailable RaizaDarvin MD Unavailable Unavailable OscarDarvin MD Unavailable Unavailable RaizaDarvin MD Unavailable Unavailable RaizaDarvin MD Unavailable Unavailable OscarDarvin MD Unavailable Unavailable OscarDarvin MD Unavailable Unavailable RaizaDarvin MD Unavailable Unavailable RaizaDarvin MD Unavailable Unavailable RaizaDarvin MD Unavailable Unavailable RaizaDarvin MD Unavailable Unavailable OscarDravin MD Unavailable Unavailable OscarDarvin MD Unavailable Unavailable OscarDarvin MD Unavailable Unavailable OscarDarvin MD Unavailable Unavailable Oscar, F Mejía MD Unavailable Unavailable RaizaDarvin pinto MD Unavailable Unavailable OscarDarvin MD Unavailable Unavailable OscarDarvin pinto MD Unavailable Unavailable OscarDarvin MD Unavailable Unavailable OscarDarvin MD Unavailable Unavailable RaizaDarvin MD Unavailable Unavailable RaizaDarvin MD Unavailable Unavailable OscarDarvin MD Unavailable Unavailable OscarDarvin MD Unavailable Unavailable OscarDarvin MD Unavailable Unavailable OscarDarvin MD Unavailable Unavailable RaizaDarvin MD Unavailable Unavailable RaizaDarvin MD Unavailable Unavailable OscarDarvin MD Unavailable Unavailable RaizaDarvin MD Unavailable Unavailable RaizaDarvin MD Unavailable Unavailable OscarDarvin MD Unavailable Unavailable OscarDarvin MD Unavailable Unavailable OscarDarvin pinto MD Unavailable Unavailable RaizaDarvin pinto MD Unavailable Unavailable OscarDarvin pinto MD Unavailable Unavailable OscarDarvin pinto MD Unavailable Unavailable OscarDarvin pinto MD Unavailable Unavailable RaizaDarvin pinto MD Unavailable Unavailable OscarDarvin pinto MD Unavailable Unavailable Wallace, Ros SERVICE TECH Unavailable Unavailable Wallace, Ros SERVICE TECH Unavailable Unavailable Wallace, Ros SERVICE TECH Unavailable Unavailable Wallace, Ros SERVICE TECH Unavailable Unavailable Wallace, Ros SERVICE TECH Unavailable Unavailable Wallace, Ros SERVICE TECH Unavailable Unavailable Wallace, Ros SERVICE TECH Unavailable Unavailable Wallace, Ros SERVICE TECH Unavailable Unavailable Wallace, Ros SERVICE TECH Unavailable Unavailable Wallace, Ros SERVICE TECH Unavailable Unavailable Wallace, Ros SERVICE TECH Unavailable Unavailable Wallace, Ros SERVICE TECH Unavailable Unavailable Wallace, Ros SERVICE TECH Unavailable Unavailable Wallace, Ros SERVICE TECH Unavailable Unavailable Wallace, Ros SERVICE TECH Unavailable Unavailable Wallace, Ros SERVICE TECH Unavailable Unavailable Wallace, Ros SERVICE TECH Unavailable Unavailable Wallace, Ros SERVICE TECH Unavailable Unavailable Wallace, Ros SERVICE TECH Unavailable Unavailable Wallace, Ros SERVICE TECH Unavailable Unavailable Wallace, Ros SERVICE TECH Unavailable Unavailable Wallace, Ros SERVICE TECH Unavailable Unavailable Wallace, Ros SERVICE TECH Unavailable Unavailable Wallace, Ros SERVICE TECH Unavailable Unavailable Wallace, Ros SERVICE TECH Unavailable Unavailable Wallace, Ros SERVICE TECH Unavailable Unavailable Wallace, Ros SERVICE TECH Unavailable Unavailable Wallace, Ros SERVICE TECH Unavailable Unavailable Wallace, Ros SERVICE TECH Unavailable Unavailable Wallace, Ros SERVICE TECH Unavailable Unavailable Wallace, Ros SERVICE TECH Unavailable Unavailable Wallace, Ros SERVICE TECH Unavailable Unavailable Wallace, Ros SERVICE TECH Unavailable Unavailable Wallace, Ros SERVICE TECH Unavailable Unavailable Wallace, Ros SERVICE TECH Unavailable Unavailable Wallace, Ros SERVICE TECH Unavailable Unavailable WINNIE, ADELAIDA PA Unavailable Unavailable [...] Unavailable Yojana Middleton MD Unavailable Unavailable Yojana Middelton MD Unavailable Unavailable Yojana Middleton MD Unavailable [...] Unavailable Emi, O Samah MD Unavailable Unavailable Mei, O Samah MD Unavailable Unavailable Emi, O [...] is protected by Article 27-F of the [facility] Public Health law. If you continue you may have access to information: Regarding HIV / AIDS; Provided by facilities licensed or operated by the [facility] Office of Mental Health; or Provided by the [facility] Office for People With Developmental Disabilities. If such information is present, then the following [facility] mandated warning applies: This information has [...] law may result in a fine or fci sentence or both. A general authorization for the release of medical or other information is NOT sufficient authorization for further disc losure. Allergies and Adverse Reactions Type Description Substance Reaction Status Data Source(s ) Allergy to substance No Known Allergies No known allergies (situation ) [facility]LE[facility] (Kirt Mckeon MD [facility]) Family History Family Member Name Family Member Gender Family Member Status Date o f Status Description Data Source(s) Unknown Male Problem [facility] Encounters Encounter Providers Location Date Indications Data Source(s ) Outpatient Attender: HOLLIE reynosoy 09/27/2021 08:20:00 AM EDT [facility] ([facility]) Outpatient Attender: Rose Marie Warren [facility] Main Office 08/25/2021 12:00:00 PM EDT [facility] ([facility]) Outpatient Attender: Nikki Middleton MD [facility] office - [facility] 08/17/2021 01:30:00 PM EDT [facility] ([facility]) Outpatient Attender: ADELAIDA churchill 06/28/2021 08:00:00 AM EDT [facility] ([facility], [facility]) Outpatient Attender: Nikki Middleton MD [facility] office - [facility] 05/04/2021 01:30:00 PM EDT MED[facility] ([facility]) Outpatient Attender: Alfonzo Lamb 0 04/15/2021 03:00:00 PM EDT MED[facility] ([facility] ) Outpatient Attender: Alfonzo Lamb 0 12/16/2020 01:00:00 PM EST [facility] ([facility] ) <td ID="encounterTypeDescriptionID0">1 Y ear Follow-Up</td><td>Kirt Mckeon MD, FACS</td><td>Kirt Millan MD [facility]</td><td>10/10/2020</td><td>7:59AM</td><td>8:53AM</td><td><content ID="encounterDiagnosisID0-0">Myasthenia Gravis</content>, <content ID="encounterDiagnosisID0-1">Conjunctivitis Chronic Allergic</content>, <content ID="encounterDiagnosisID0-2">Dry Eye Syndrome Both Eyes</content>, <content ID="encounterDiagnosisID0-3">Vitreous Disorders Degeneration</content></td>Outpatient Attender: Kirt Mckeon MD, FACS Kirt Millan MD [facility] 10/10/2020 07:59:00 AM EST - 10/10/2020 08:53:00 AM ES T Vitreous Disorders DegenerationMyasthenia GravisDry Eye Syndrome Both EyesConjunctivitis Chronic Allergic WILLEM (Kirt Mckeon MD [facility]) Vitreous Disorders Degeneration Myasthenia Gravis 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. COVID-19 VACCINE Pfizer 02/07/2021 12:00:00 AM EST completed [facility] Vaccine Series Complete: YESThis Data wa s Submitted to [facility]. COVID-19 VACCINE Pfizer 01/17/2021 12:00:00 AM EST completed [facility] Vaccine Series Complete: NOThis Data was Submitted to [facility]. Influenza, injectable, MDCK, preservative free, axel valent 08/13/2020 02:31:00 PM EDT completed [facility] ([facility]) Medications Medication Brand Name Start Date [...] Doxycycline Monohydrate 100 MG Oral Capsule Doxycycline [place] hydrate 06/28/2021 12:00:00 AM EDT ORAL completed [facility] ([facility], [facility]) 20 mg 04/21/2021 12:00:00 AM EDT [...] 08/13/2020 12:00 :00 AM EDT completed [facility] ([facility]) Medication administered onsite Levothyroxine Sodium 0.05 MG Oral Tablet Levothyroxine Kasieu m 08/13/2020 12:00:00 AM EDT ORAL active M EDENT ([facility]) 175 mcg 01/24/2020 12:00:00 AM EST [...] type / Coverage type Policy ID Covered green party ID Covered green party's relationship to randall Policy Randall Plan Information [facility] Health Maintenance Organization (HMO) [id number] Family Dependent 802 [facility] Health Maintenance Organization (O) [id number] Family Dependent [id number] [facility] Trad/MX Commercial [id number] Family Dependent 802 [facility] Trad/MX Medigap Part B [id number] Family Dependent [id number] BCBS [place] O 302/[id number] [facility] Trad/MX Medigap Part B [id number] Family Dependent [id number] [facility] Trad/MX Commercial [id number] Family Dependent 802 [facility] Healthcare Commercial [id number] Self [id number] [facility] Healthcare Commercial [id number] Self [facility] Healthcare Commercial [facility] [address] Family Dependent [facility] Healthcare Commercial [id number] Family Dependent [id number] [facility] HEALTH CARE [id number] SP [id number] [employer] P [id number] P [id number] [employer] P [id number] P [id number] P HEALTH CARE O [id number] S [id number] P HEALTH CARE O [id number] P [id number] [facility] Health Care Health Maintenance Organization ([facility]) [id number] 1 [id number] Self [id number] MEDICARE BLUE [facility] [id number] SP [id number] [facility] [id number] SP [id number] [facility] [id number] SP [id number] [facility] [id number] [facility] [id number] Problems, Conditions, and Diagnoses No Information Surgeries/Procedures Procedure Description Date Indications Data Source(s) Therapeutic, Prophylactic Or Diagnostic Injection Subq/Im 09/27/2021 12:00:00 AM EDT [facility] ([facility]) OFFICE OUTPATIENT VISIT 25 MINUTES 09/27/2021 12:00:00 AM EDT MED[facility] ([facility]) OFFICE OUTPATIENT VISIT 25 MINUTES 08/25/2021 12:00:00 AM EDT [facility] ([facility]) OFFICE OUTPATIENT VISIT 25 MINUTES 08/17/2021 12:00:00 AM EDT [facility] ([facility] ) OFFICE OUTPATIENT VISIT 15 MINUTES 06/28/2021 12:00:00 AM EDT MED[facility] ([facility]) OFFICE OUTPATIENT VISIT 25 MINUTES 05/04/2021 12:00:00 AM EDT [facility] ([facility] ) ECG ROUTINE ECG W/LEAST 12 LDS W/I&R 04/15/2021 12:00: 00 AM EDT [facility] ([facility]) OFFICE OUTPATIENT VISIT 25 MINUTES 04/15/2021 12:00:00 AM EDT [facility] ([facility]) Intermediate Eye Exam Established Patient Intermediate Eye Exam Established Patient 10/10/2020 12:00:00 AM EST WILLEM (Hosea Mckeon MD [facility]) ECHO TTHRC R-T 2D W/WOM-MODE COMPL SPEC&COLR DOP 09/22 12:00:00 AM EDT [facility] ([facility]) Results ID Date Data Source [id number] 09/15/2021 11:17:00 AM EDT [facility] ([facility]) Name Value Range Interpretation Code Description Data Gabbi rce(s) Supporting Document(s) Thyrotropin [Units/volume] in Serum or Plasma by Detec tion limit <= 0.05 mIU/L Laboratory test result [facility] ([facility]) ID Date Data Source [id number] 09/15/2021 11:17:00 AM EDT [facility]) Name Value Range Interpretation Code Description Data Gabbi rce(s) Supporting Document(s) Hemoglobin A1c/Hemoglobin.total in Blood Laboratory test [facility] ID Date Data Source [id number] 07/14/2021 12:00:00 AM EDT [facility] Name Value Range Interpretation Code Description Data Gabbi rce(s) Supporting Document(s) SARS-CoV2 Rapid Antigen Negative [facility] This lab was reported by [facility]. ID Date Data Source [id number] 04/14/2021 03:08:00 PM EDT [facility]) Name Value Range Interpretation Code Description Data Gabbi rce(s) Supporting Document(s) Vitamin B12 Level 477 pg/mL [facility] ([facility]) VITAMIN B12 NORMAL RANGE NORMAL 247 - 911 PG/ML INDETERMINATE 211 - 246 PG/ML DEFICIENT LESS THAN 211 PG/ML Folate 6.0 ng/mL [facility] FOLATE NORMAL RANGE NORMAL GREATER THAN 5.4 NG/ML INDETERMINATE 3.4-5.4 NG/ML DEFICIENT LESS THAN 3.4 NG/ML ID Date Data Source [id number] 04/14/2021 03:07:00 PM EDT [facility]) Name Value Range Interpretation Code Description Data Gabbi rce(s) Supporting Document(s) Calcidiol [Mass/volume] in Serum or Plasma 20.6 ng/mL 24.0-80.0 [facility] ([facility]) This test was performed using [employer] I P Vitamin D immunoassay kit. Values obtained with different assay methods should not be used interchangeably. ID Date Data Source [id number] 04/14/2021 03:07:00 PM EDT [facility]) Name Value Range Interpretation Code Description Data Gabbi rce(s) Supporting Document(s) Thyrotropin [Units/volume] in Serum or Plasma by Detec tion limit <= 0.05 mIU/L 0.04 uIU/mL 0.36-3.74 [facility] ([facility] ) ID Date Data Source [id number] 04/14/2021 03:07:00 PM EDT [facility] ([facility]) Name Value Range Interpretation Code Description Data Gabbi rce(s) Supporting Document(s) Glucose [Mass/volume] in Serum or Plasma 116 mg/dL 74-99 [facility] ([facility]) 100-125 mg/dL PRE-DIABETES/FASTING >126 mg/dL DIABETES/FASTING Urea nitrogen [Mass/volume] in Serum or Plasma 14 mg/dL 7-18 [facility] ([facility]) Creatinine 1.4 mg/dL 0.6-1.3 [facility] Sodium [Moles/volume] in Serum or Plasma 143 meq/L 136-145 [facility] ([facility]) Chloride [Moles/volume] in Serum or Plasma 107 meq/L 98-107 [facility] ([facility]) Potassium [Moles/volume] in Serum or Plasma 4.6 meq/L 3.5-5.1 [facility] ([facility]) Alkaline phosphatase isoenzyme [Units/volume] in Serum or Pl asma 93 mg/dL 46-116 [facility] ([facility]) Calcium [Mass/volume] in Serum or Plasma 9.3 mg/dL 8.5-10.1 [facility] ([facility]) Carbon dioxide, total [Moles/volume] in Serum or Plasma 27 meq/L 21 -32 [facility] ([facility]) Total Bilirubin 1.4 mg/dL 0.2-1.0 [facility] ([facility]) Aspartate aminotransferase [Enzymatic activity/volume] in Serum or Plasma 35 U/L 15-37 [facility] ([facility] ) Albumin [Mass/volume] in Serum or Plasma 4.3 g/dL 3.4-5.0 [facility] ([facility]) Proteinase 3 Ab [Units/volume] in Serum 7.8 g/dL 6.4-8.2 [facility] ([facility]) Alanine aminotransferase [Enzymatic activity/volume] in Seru m or Plasma 47 U/L 12-78 [facility] Glomerular filtration rate/1.73 sq M pre dicted among non-blacks [Volume Rate/Area] in Serum or Plasma by Creatinine-based formula (MDRD) 51 mL/min [facility] A/G Ratio 1.23 CALC 1.00-1.90 [facility] Glomerular filtration rate/1.73 sq M pre dicted among blacks [Volume Rate/Area] in Serum or Plasma by Creatinine-based formula (MDRD) Laboratory test result [facility] <content>CHRONIC KIDNEY DISEASE STAGING PER NKF</content>
<content></content>
<content>STAGE I & II GFR >= 60 NORMAL TO MILDLY DECREASED</content>
<content>STAGE III GFR 30-59 MODERATELY DECREASED</content>
<content>STAGE IV GFR 15-29 SEVERELY DECREASED</content>
<content>STAGE V GFR <15 VERY LITTLE GFR LEFT</content>
<content>ESRD GFR <15 ON CARDBOARD INSERTER</content>
<content></content> ID Date Data Source [id number] 04/14/2021 03:07:[address] [facility] Name Value Range Interpretation Code Description Data Gabbi rce(s) Supporting Document(s) Glucose mean value [Mass/volume] in Blood Estimated fr om glycated hemoglobin 114 mg/dL 60-110 [facility] Hemoglobin A1c/Hemoglobin.total in Blood 5.6 % [facility] ([facility]) Lab Result Notes: Pre-Diabetes 5.7 - 6.4 % Diabetes = or > 6.5% ID Date Data Source [id number] 04/14/2021 03:07:[address] [facility] Name Value Range Interpretation Code Description Data Gabbi rce(s) Supporting Document(s) Leukocytes [#/volume] in Blood by Automated count 6.8 x10*3/UL 4.1-[address] [facility] ([facility]) Erythrocytes [#/volume] in Blood by Automated count 5.10 x10*6/UL 4.2 0-6.30 [facility] ([facility]) Hemoglobin [Mass/volume] in Blood 15.7 g/dL 12.0-18.0 [facility] ([facility]) MCV 91.0 fL 80.0-97.0 [facility] Hematocrit [Volume Fraction] of Blood by Automated count 46.4 % 3 7.0-51.0 [facility] ([facility]) MCHC 33.8 g/dL 31.0-38.0 [facility] ([facility] MCH 30.8 pg 26.0-32.0 [facility] Erythrocyte distribution width [Ratio] by Automated count 13.1 % 11.6-13.7 [facility] ([facility]) MPV 9.4 FL 7.8-11.0 [facility] Platelets [#/volume] in Blood by Automated count 254 x10*3/UL 140-440 [facility] ([facility]) Lymph % 19.7 % 10.0-58.5 [facility] Mid % 5.4 % 1.7-9.3 [facility] ([facility] Neut % 74.9 % 37.0-92.0 [facility] Lymph # 1.3 x10*3/UL 0.6-4.1 [facility] ([facility]) Mid # 0.4 x10*3/UL 0.1-0.6 [facility] ([facility]) Neut # 5.1 x10*3/UL 2.0-7.8 [facility] ([facility]) ID Date Data Source [id number] 12/15/2020 01:26:00 PM EST [facility] ([facility]) Name Value Range Interpretation Code Description Data Gabbi rce(s) Supporting Document(s) Thyroxine (T4) free [Mass/volume] in Serum or Plasma 1.20 ng/dL 0.76- 1.46 [facility] ([facility]) ID Date Data Source [id number] 12/15/2020 01:25:00 PM EST [facility] ([facility]) Name Value Range Interpretation Code Description Data Gabbi rce(s) Supporting Document(s) Thyrotropin [Units/volume] in Serum or Plasma by Detec tion limit <= 0.05 mIU/L 7.48 uIU/mL 0.36-3.74 [facility] ([facility] ) ID Date Data Source [id number] 12/15/2020 01:25:00 PM EST [facility] ([facility]) Name Value Range Interpretation Code Description Data Gabbi rce(s) Supporting Document(s) Triglyceride [Mass/volume] in Serum or Plasma 146 mg/dL 30-150 [facility] ([facility]) Cholesterol [Mass/volume] in Serum or Plasma 128 mg/dL 131-200 [facility] ([facility]) Cholesterol in HDL [Mass/volume] in Serum or Plasma 27 mg/dL 35-60 [facility] ([facility]) Cholesterol in LDL [Mass/volume] in Serum or Plasma by calcu lation 72 CALC 50-159 [facility] ([facility]) ID Date Data Source [id number] 12/15/2020 01:25:00 PM EST [facility] ([facility]) Name Value Range Interpretation Code Description Data Gabbi rce(s) Supporting Document(s) Glucose [Mass/volume] in Serum or Plasma 64 mg/dL 74-99 [facility] ([facility]) 100-125 mg/dL PRE-DIABETES/FASTING >126 mg/dL DIABETES/FASTING Urea nitrogen [Mass/volume] in Serum or Plasma 17 mg/dL 7-18 [facility] ([facility]) Sodium [Moles/volume] in Serum or Plasma 141 meq/L 136-145 [facility] ([facility]) Creatinine 1.2 mg/dL 0.6-1.3 [facility] Potassium [Moles/volume] in Serum or Plasma 4.1 meq/L 3.5-5.1 [facility] ([facility]) Chloride [Moles/volume] in Serum or Plasma 105 meq/L 98-107 [facility] ([facility]) Carbon dioxide, total [Moles/volume] in Serum or Plasma 22 meq/L 21 -32 [facility] ([facility]) Calcium [Mass/volume] in Serum or Plasma 9.2 mg/dL 8.5-10.1 [facility] ([facility]) Alkaline phosphatase isoenzyme [Units/volume] in Serum or Pl asma 91 mg/dL 46-116 [facility] Total Bilirubin 1.7 mg/dL 0.2-1.0 [facility] ([facility]) Aspartate aminotransferase [Enzymatic activity/volume] in Serum or Plasma 24 U/L 15-37 [facility] ([facility] ) Albumin [Mass/volume] in Serum or Plasma 3.8 g/dL 3.4-5.0 [facility] ([facility]) Alanine aminotransferase [Enzymatic activity/volume] in Seru m or Plasma 30 U/L 12-78 [facility] ([facility]) Proteinase 3 Ab [Units/volume] in Serum 6.9 g/dL 6.4-8.2 [facility] A/G Ratio 1.23 CALC 1.00-1.90 [facility] Glomerular filtration rate/1.73 sq M pre dicted among non-blacks [Volume Rate/Area] in Serum or Plasma by Creatinine-based formula (MDRD) Laboratory test result [facility] Glomerular filtration rate/1.73 sq M pre dicted among blacks [Volume Rate/Area] in Serum or Plasma by Creatinine-based formula (MDRD) Laboratory test result [facility] <content>CHRONIC KIDNEY DISEASE STAGING PER NKF</content>
<content></content>
<content>STAGE I & II GFR >= 60 NORMAL TO MILDLY DECREASED</content>
<content>STAGE III GFR 30-59 MODERATELY DECREASED</content>
<content>STAGE IV GFR 15-29 SEVERELY DECREASED</content>
<content>STAGE V GFR <15 VERY LITTLE GFR LEFT</content>
<content>ESRD GFR <15 ON CARDBOARD INSERTER</content>
<content></content> ID Date Data Source [id number] 12/15/2020 01:25:00 PM EST [facility] ([facility]) Name Value Range Interpretation Code Description Data Gabbi rce(s) Supporting Document(s) Hemoglobin A1c/Hemoglobin.total in Blood 5.6 % [facility] Lab Result Notes: Pre-Diabetes 5.7 - 6.4 % Diabetes = or > 6.5% Glucose mean value [Mass/volume] in Blood Estimated fr om glycated hemoglobin 114 mg/dL 60-110 [facility] ([facility] ) ID Date Data Source [id number] 12/15/2020 01:25:00 PM EST [facility] ([facility]) Name Value Range Interpretation Code Description Data Gabbi rce(s) Supporting Document(s) Erythrocytes [#/volume] in Blood by Automated count 4.88 x10*6/UL 4.2 0-6.30 [facility] ([facility]) Leukocytes [#/volume] in Blood by Automated count 6.9 x10*3/UL 4.1-10 .[facility] Hematocrit [Volume Fraction] of Blood by Automated count 44.4 % 3 7.0-51.0 [facility] Hemoglobin [Mass/volume] in Blood 15.1 g/dL 12.0-18.0 [facility] ([facility]) MCV 91.0 fL 80.0-97.0 [facility] MCHC 34.1 g/dL 31.0-38.0 [facility] MCH 31.0 pg 26.0-32.0 [facility] Platelets [#/volume] in Blood by Automated count 240 x10*3/UL 140-440 [facility] Erythrocyte distribution width [Ratio] by Automated count 13.1 % 11.6-13.7 [facility] ([facility]) MPV 9.5 FL 7.8-11.0 [facility] Mid % 5.7 % 1.7-9.3 [facility] Lymph % 22.6 % 10.0-58.5 [facility]) Neut % 71.7 % 37.0-92.0 [facility] Lymph # 1.5 x10*3/UL 0.6-4.1 [facility] ([facility]) Mid # 0.5 x10*3/UL 0.1-0.6 [facility] ([facility]) Neut # 4.9 x10*3/UL 2.0-7.8 [facility] ([facility]) ID Date Data Source [id number] 08/12/2020 10:23:00 AM EDT [facility] ([facility]) Name Value Range Interpretation Code Description Data Gabbi rce(s) Supporting Document(s) Thyrotropin [Units/volume] in Serum or Plasma by Detec tion limit <= 0.05 mIU/L 12.21 uIU/mL 0.36-3.74 [facility] ([facility] ) Thyroxine (T4) free [Mass/volume] in Serum or Plasma 1.28 ng/dL 0.76- 1.46 [facility] ([facility]) ID Date Data Source [id number] 08/12/2020 10:23:00 AM EDT [facility] ([facility]) Name Value Range Interpretation Code Description Data Gabbi rce(s) Supporting Document(s) Cholesterol [Mass/volume] in Serum or Plasma 126 mg/dL 131-200 [facility] ([facility]) Cholesterol in HDL [Mass/volume] in Serum or Plasma 27 mg/dL 35-60 [facility] ([facility]) Triglyceride [Mass/volume] in Serum or Plasma 105 mg/dL 30-150 [facility] ([facility]) Cholesterol in LDL [Mass/volume] in Serum or Plasma by calcu lation 78 CALC 50-159 [facility] ([facility]) ID Date Data Source [id number] 08/12/2020 10:23:00 AM EDT [facility] ([facility]) Name Value Range Interpretation Code Description Data Gabbi rce(s) Supporting Document(s) Glucose [Mass/volume] in Serum or Plasma 106 mg/dL 74-99 [facility] ([facility]) 100-125 mg/dL PRE-DIABETES/FASTING >126 mg/dL DIABETES/FASTING Creatinine 1.3 mg/dL 0.6-1.3 [facility] ([facility]) Urea nitrogen [Mass/volume] in Serum or Plasma 12 mg/dL 7-18 [facility] ([facility]) Potassium [Moles/volume] in Serum or Plasma 4.1 meq/L 3.5-5.1 [facility] ([facility]) Sodium [Moles/volume] in Serum or Plasma 142 meq/L 136-145 [facility] ([facility]) Chloride [Moles/volume] in Serum or Plasma 107 meq/L 98-107 [facility] ([facility]) Calcium [Mass/volume] in Serum or Plasma 8.8 mg/dL 8.5-10.1 [facility] ([facility]) Carbon dioxide, total [Moles/volume] in Serum or Plasma 21 meq/L 21 -32 [facility] ([facility]) Alkaline phosphatase isoenzyme [Units/volume] in Serum or Pl asma 71 mg/dL 46-116 [facility] ([facility]) Total Bilirubin 1.6 mg/dL 0.2-1.0 [facility] ([facility]) Aspartate aminotransferase [Enzymatic activity/volume] in Serum or Plasma 24 U/L 15-37 [facility] ([facility] ) Alanine aminotransferase [Enzymatic activity/volume] in Seru m or Plasma 30 U/L 12-78 [facility] ([facility]) Albumin [Mass/volume] in Serum or Plasma 3.8 g/dL 3.4-5.0 [facility] ([facility]) Proteinase 3 Ab [Units/volume] in Serum 6.9 g/dL 6.4-8.2 [facility] ([facility]) A/G Ratio 1.23 CALC 1.00-1.90 [facility] ([facility]) Glomerular filtration rate/1.73 sq M pre dicted among non-blacks [Volume Rate/Area] in Serum or Plasma by Creatinine-based formula (MDRD) 56 mL/min [facility] ([facility]) Glomerular filtration rate/1.73 sq M pre dicted among blacks [Volume Rate/Area] in Serum or Plasma by Creatinine-based formula (MDRD) Laboratory test result [facility] ([facility]) <content>CHRONIC KIDNEY DISEASE STAGING PER NKF</content>
<content></content>
<content>STAGE I & II GFR >= 60 NORMAL TO MILDLY DECREASED</content>
<content>STAGE III GFR 30-59 MODERATELY DECREASED</content>
<content>STAGE IV GFR 15-29 SEVERELY DECREASED</content>
<content>STAGE V GFR <15 VERY LITTLE GFR LEFT</content>
<content>ESRD GFR <15 ON CARDBOARD INSERTER</content>
<content></content> ID Date Data Source [id number] 08/12/2020 10:23:[address] [facility] Name Value Range Interpretation Code Description Data Gabbi rce(s) Supporting Document(s) Hemoglobin A1c/Hemoglobin.total in Blood 5.5 g/dL 4.8-5.6 [facility] ([facility]) Lab Result Notes: Pre-Diabetes 5.7 - 6.4 % Diabetes = or > 6.5% Glucose mean value [Mass/volume] in Blood Estimated fr om glycated hemoglobin 111 mg/dL 60-110 [facility] ID Date Data Source [id number] 08/12/2020 10:23:00 AM EDT [facility] Name Value Range Interpretation Code Description Data Gabbi rce(s) Supporting Document(s) Leukocytes [#/volume] in Blood by Automated count 5.8 x10*3/UL 4.1-[address] [facility] Erythrocytes [#/volume] in Blood by Automated count 4.80 x10*6/UL 4.2 0-6.30 [facility] Hemoglobin [Mass/volume] in Blood 15.4 g/dL 12.0-18.0 [facility] Hematocrit [Volume Fraction] of Blood by Automated count 44.4 % 3 7.0-51.0 [facility] ([facility]) MCH 32.1 pg 26.0-32.0 [facility] ([facility]) MCV 92.3 fL 80.0-97.0 [facility] ([facility]) MCHC 34.8 g/dL 31.0-38.0 [facility] ([facility]) Platelets [#/volume] in Blood by Automated count 203 x10*3/UL 140-440 [facility] ([facility]) Erythrocyte distribution width [Ratio] by Automated count 12.9 % 11.6-13.7 [facility] ([facility]) Lymph % 21.0 % 10.0-58.5 [facility] ([facility]) MPV 8.9 FL 7.8-11.0 [facility] ([facility]) Mid % 6.5 % 1.7-9.3 [facility] ([facility]) Lymph # 1.2 x10*3/UL 0.6-4.1 [facility] ([facility]) Neut % 72.5 % 37.0-92.0 [facility] ([facility] Mid # 0.4 x10*3/UL 0.1-0.6 [facility] ([facility]) Neut # 4.2 x10*3/UL 2.0-7.8 [facility] ([facility]) Procedure Social History Code Duration Value Status Description Data Source(s ) Smoking 08/22/2021 09:02:35 AM EDT Never smoked tobacco (findi ng) completed Never smoked tobacco (finding) [place] (Kirt Mckeon MD [facility]) Vital Signs ID Date Data Source UNK Name Value Range Interpretation Code Description Data Source(s) Systolic blood pressure 143 mm[Hg] 143 mm[Hg] [facility] ([facility], [facility]) Diastolic blood pressure 98 mm[Hg] 98 mm[Hg] [facility] ([facility], [facility]) Heart rate 52 /min 52 /min [facility] ([facility], [facility]) Respiratory rate 18 /min 18 /min [facility] ( [facility]) Oxygen saturation in Arterial blood by Pulse oximetry 99 % 99 % [facility] ([facility]) Body temperature 96.0 [degF] 96.0 [degF] [facility]) Body weight 225.00 [lb_av] 225.00 [lb_av] MED[facility] T ([facility], [facility]) Body height 73 [in_i] 73 [in_i] [facility] ([facility], [facility]) 6'1" Body mass index (BMI) [Ratio] 29.7 kg/m2 29.7 k g/m2 [facility] ([facility], [facility]) Systolic blood pressure 147 mm[Hg] 147 mm[Hg] M [facility] ([facility]) Diastolic blood pressure 95 mm[Hg] 95 mm[Hg] [facility] ([facility]) Heart rate 75 /min 75 /min [facility] ([facility]) Body weight 225.00 [lb_av] 225.00 [lb_av] [facility] T ([facility]) Body height 72.5 [in_i] 72.5 [in_i] [facility] ([facility], ) 6'0.50" Body weight 225.00 [lb_av] 225.00 [lb_av] [facility] T ([facility], ) Body mass index (BMI) [Ratio] 30.1 kg/m2 30.1 k g/m2 [facility] ([facility], ) [place] body weight 178 [lb_av] 178 [lb_av] [facility] T ([facility], ) Respiratory rate 12 /min 12 /min [facility] ( [facility], ) Systolic blood pressure 118 mm[Hg] 118 mm[Hg] M [facility] ([facility], [facility]) Diastolic blood pressure 20 mm[Hg] 20 mm[Hg] [facility] ([facility], [facility]) Heart rate 81 /min 81 /min [facility] ([facility], [facility]) Respiratory rate 15 /min 15 /min [facility] ( [facility], [facility]) Oxygen saturation in Arterial blood by Pulse oximetry 100 % 100 % [facility], [facility]) Body temperature 96.6 [degF] 96.6 [degF] [facility] ([facility]) Body weight 230.00 [lb_av] 230.00 [lb_av] MED[facility] T ([facility]) Body height 72 [in_i] 72 [in_i] [facility] ([facility]) 6'0" Body mass index (BMI) [Ratio] 31.2 kg/m2 31.2 k g/m2 [facility] ([facility]) Respiratory rate 12 /min 12 /min [facility] ( [facility], ) Body height 72.5 [in_i] 72.5 [in_i] [facility] ([facility], ) 6'0.50" Body mass index (BMI) [Ratio] 33.4 kg/m2 33.4 k g/m2 [facility] ([facility], ) [place] body weight 178 [lb_av] 178 [lb_av] [facility] T ([facility], ) Body weight 250.00 [lb_av] 250.00 [lb_av] [facility] T ([facility], ) Heart rate 72 /min 72 /min [facility] ([facility]) Systolic blood pressure 112 mm[Hg] 112 mm[Hg] M EDENT ([facility]) Diastolic blood pressure 68 mm[Hg] 68 mm[Hg] [facility] ([facility]) Body height 72.25 [in_i] 72.25 [in_i] [facility]) 6'0.25" Body weight 259.00 [lb_av] 259.00 [lb_av] MED[facility] T ([facility]) Body mass index (BMI) [Ratio] 34.9 kg/m2 34.9 k g/m2 [facility] ([facility]) Body height 72.25 [in_i] 72.25 [in_i] [facility] 6'0.25" Body weight 273.00 [lb_av] 273.00 [lb_av] [facility] T ([facility]) Body mass index (BMI) [Ratio] 36.8 kg/m2 36.8 k g/m2 [facility] ([facility]) Systolic blood pressure 130 mm[Hg] 130 mm[Hg] M EDSHANT ([facility]) Diastolic blood pressure 76 mm[Hg] 76 mm[Hg] [facility] ([facility]) Heart rate 76 /min 76 /min [facility] ([facility]) Body weight 290.00 [lb_av] 290.00 [lb_av] HOMERO Combs ([facility])
[2021-09-28] MEDS: PIPERACILLIN/TAZOBACTAM SOD 3.375 GM in D5W MINI-BAG PLUS 50 ML IV SCH ×4 (02:31→15:38)
[2021-09-28] MEDS: NS 1,000 ML IV SCH ×2 (05:38→13:45)
--- NOTE | 2021-09-28 05:51 | ECGEPIP ---
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
--- NOTE | 2021-09-28 07:48 | HPE ---
HISTORY AND PHYSICAL DATE OF ADMISSION: 09/27/2021 ADMITTING DIAGNOSIS: Acute cholecystitis. HISTORY OF PRESENT ILLNESS: The patient is a pleasant, 66-year-old man who presented to the emergency department for evaluation of severe upper abdominal pain with nausea and vomiting. Patient reports that he had returned home from work late on the 26 of September. He found some macaroni and cheese that his had prepared earlier in the day and ate this late in the evening on the . About half an hour later, he developed severe upper abdominal pain with associated nausea and vomiting. The nausea persisted and he had repeated episodes of fairly violent vomiting. This persisted overnight. At approximately 5 o'clock in the morning, he woke his and advised her of his illness. He was seen at an urgent care center on [facility] at 8 o'clock in the morning when they opened. They apparently determined that they thought he required care beyond their ability and he was referred to [facility]. He presented at [facility] at 9:48 in the morning on the 27 of September. He was actually seen by a provider several hours later. He had received some Zofran for the nausea as well as a dose of morphine. He was evaluated with some laboratory studies that showed a mild elevation of the white blood cell count with 90% neutrophils. A CT angiogram of the chest was obtained to rule out pulmonary embolus. He had a CT scan of the abdomen and pelvis as well as an ultrasound of the upper abdomen. These studies showed some thickening of the gallbladder wall with distention and pericholecystic edema consistent with acute cholecystitis, and I was consulted to evaluate the patient. ALLERGIES: The patient denies any known drug allergies. MEDICATIONS: - mycophenolate mofetil 500mg po daily - omeprazole 20 mg p.o. daily - duloxetine 30 mg p.o. daily - zolpidem 10 mg p.o. daily at bedtime as needed for sleep - aspirin 325 mg p.o. daily - levothyroxine 50 mcg p.o. daily - multivitamin with minerals p.o. daily MEDICAL HISTORY: Significant for longstanding atrial fibrillation. He has a previous history of two attempts at cardioversion which did not last. He has not been on any anticoagulation but remains on a 325 mg aspirin tablet daily. He has had a history of hypertension in the past. He has a history of obesity and underwent a Ortiz-en-Y gastric bypass approximately 11 years ago. He reports he had initially lost significant weight but then regained it all but indicates that he has re-lost 70 pounds over the last six months or so with intentional dieting. He has not been retested for sleep apnea since though it has been recommended. He reports a history of myasthenia gravis. He has hypothyroidism. He has had some issues with gastroesophageal reflux. He has also suffered from some back pain. SURGICAL HISTORY: Significant for his Ortiz-en-Y gastric bypass approximately 11 years ago. He had an appendectomy at about age 16. He has had a vasectomy. He has had colonoscopies previously, apparently with some polyps identified. 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 He denies any tobacco use but does drink some alcohol. REVIEW OF SYSTEMS: Reveals no history of chest pain or palpitations. He does report that if he exerts himself significantly, he can sometimes feel his irregular pulse. He denies any shortness of breath or wheezing. He reports that he feels much better after having lost weight recently. He denies any prior history of similar abdominal pain to what he presented with. He denies any history of hepatitis, pancreatitis or yellow jaundice. He has had a kidney stone in the past some years ago but denies any dysuria or hematuria. He has no history of deep vein thrombosis (DVT) or pulmonary embolus. He has had no history of seizure or stroke. He denies any significant acute orthopedic issues. FAMILY HISTORY: Noncontributory. PHYSICAL EXAMINATION: In the emergency department, his most recent vital signs showed a temperature of 98.9 with a pulse of 80, respirations of 16 and a blood pressure of 113/71. Room air oxygen saturation was 100%. The patient is sitting up quietly on the edge of the hospital stretcher. He appears fairly comfortable. Skin is warm and dry. Sclerae are anicteric. Mucous membranes are moist. The neck is supple. There are no cervical bruits and no cervical masses. Heart exam shows an irregular/irregular rhythm. Lungs are clear to auscultation. The abdomen shows an old oblique scar in the right lower quadrant. He has a couple of small trocar site scars in the upper abdomen that are more difficult to identify. The abdomen is flat. He has active bowel sounds. There is a single small area of mild tenderness in the right subcostal area with deep inspiration. No mass is palpable. There is no evident hernia. He has palpable radial and dorsalis pedis pulses bilaterally. LABORATORY STUDIES: Show a white count of 15 with a hemoglobin of 15, hematocrit 44 and a platelet count of 239,000. His differential count showed neutrophils 90%, 4% lymphocytes and 5% monocytes. Chemistry profile showed normal electrolytes with a BUN of 11, creatinine 0.9 and a glucose of 125. His total bilirubin was 1.4 with a direct of 0.4. AST 37, ALT 32, and alkaline phosphatase of 91. He had a troponin of 0.08 with A BNP of 1697. Total protein was 7.2 with an albumin of 3.7. Lipase was 77. Urinalysis is not suggestive of a urinary tract infection. Covid serology is negative. His CT angiogram of the chest showed several noncalcified small pulmonary nodules likely low risk. There was some fusiform dilation of the supravalvular ascending thoracic aorta to 4.8 cm maximally and no evidence of pulmonary emboli. His CT scan of the abdomen and pelvis revealed some diffuse hepatic parenchymal density consistent with steatosis. The gallbladder was distended with some mild increased wall thickening and some mild pericholecystic inflammation. There were no calcified calculi identified. His gastric bypass was noted as well as some moderate prostatic enlargement, and the pulmonary nodules were again noted. A gallbladder ultrasound was then done and this revealed some mild gallbladder enlargement with some wall thickening and some pericholecystic edema. No definite stones were identified. IMPRESSION: Acute cholecystitis. His history is certainly consistent with acute cholecystitis with an episode of severe upper abdominal pain with nausea and vomiting that lasted throughout the evening. He is much more comfortable now than he had been following some narcotic analgesics. He has an area of mild tenderness in the right upper quadrant. His white count was elevated with 90% neutrophils and his imaging studies all show some thickening of the gallbladder wall with some pericholecystic edema. Additional diagnoses include: 1. Atrial fibrillation, persistent 2. Hypothyroidism 3. Myasthenia gravis 4. Hypertension 5. Obstructive sleep apnea 6. Bariatric surgery status PLAN: I discussed with the patient and his , who was contacted by speaker phone, about the diagnosis of acute cholecystitis. There are no definite stones that show up on his imaging studies but I suspect that there is a stone in the gallbladder neck to account for his symptoms that is just not well identified on his ultrasound. I recommended that we proceed with a laparoscopic cholecystectomy. I described the procedure to him and he and his both had an opportunity to ask questions. They were counseled regarding the risks of the procedure. I had previously checked with the operating room and we can likely do this first thing in the morning as there is a potentially protracted orthopedic surgery just beginning at the time of his admission. I will keep him nothing by mouth (NPO) overnight on some maintenance IV fluid. He will be provided with analgesics and antiemetics as necessary. He will remain on the antibiotics with Zosyn. His regular medications, I believe, can all be safely held until after his surgery. The patient desires to proceed with the plan as I have outlined it. MARI
[2021-09-28 08:00] VITALS: BP 133/86
[2021-09-28] MEDS ORDERED: DULoxetine 30MG CAPSULE (CYMBALTA) PO SCH (09:00)
[2021-09-28] MEDS ORDERED: PANTOPRAZOLE 40MG VIAL (C9113 PER 1) IV SCH (09:00)
[2021-09-28] MEDS ORDERED: BUPIVACAINE HCL 0.25% 30ML VIAL As Ordered ONE (10:41)
[2021-09-28 12:00] VITALS: BP 124/85
[2021-09-28] MEDS ORDERED: fentaNYL 100 MCG/2 ML INJECTION (J3010) As Ordered ONE ×2 (12:08→13:48)
[2021-09-28] MEDS ORDERED: MIDAZOLAM INJ 2MG/2ML VIAL (J2250 PER 1MG) As Ordered ONE (12:08)
[2021-09-28] MEDS ORDERED: propofoL 200 MG/20 ML VIAL As Ordered ONE (12:09)
[2021-09-28] MEDS ORDERED: dexameTHASONE 4 MG/ML 1ML VIAL (J1100 PER 1MG) As Ordered ONE (12:09)
[2021-09-28] MEDS ORDERED: LIDOCAINE 2% 100MG/5ML SDV (FOR ANES.) As Ordered ONE (12:09)
[2021-09-28] MEDS ORDERED: ONDANSETRON 4MG/2ML VIAL As Ordered ONE (12:09)
[2021-09-28] MEDS ORDERED: SUGAMMADEX SODIUM 500 MG/5 ML VIAL (BRIDION) As Ordered ONE (12:09)
[2021-09-28] MEDS ORDERED: ROCURONIUM BROMIDE 50 MG/5 ML VIAL As Ordered ONE (12:09)
[2021-09-28] MEDS ORDERED: METOPROLOL 5 MG/5 ML VIAL As Ordered ONE (12:58)
[2021-09-28] MEDS ORDERED: ACETAMINOPHEN 1000MG 100ML IV BTL (OFIRMEV) (J0131 PER 10MG) As Ordered ONE (13:03)
[2021-09-28] MEDS ORDERED: ONDANSETRON 4MG/2ML VIAL IV PRN (15:15)
[2021-09-28] MEDS ORDERED: fentaNYL 100 MCG/2 ML INJECTION (J3010) IV PRN (15:15)
[2021-09-28] MEDS ORDERED: LR 1,000 ML IV SCH (15:15)
[2021-09-28] MEDS ORDERED: oxyCODONE 5MG TAB PO PRN (15:15)
[2021-09-28] MEDS ORDERED: METOCLOPRAMIDE INJ 10MG/2ML VIAL (J2765 PER 1) IV PRN (15:15)
[2021-09-28] MEDS ORDERED: NORCO, ANEXSIA 5/325MG TABLET (HYDROcodone/ACETAMINOPHEN) PO PRN (15:35)
[2021-09-28] MEDS ORDERED: ACETAMINOPHEN TAB 650MG DOSE (2X325MG) PO PRN (15:35)
[2021-09-28] MEDS ORDERED: MORPHINE 2 MG/ML 1ML VIAL (J2270) IV PRN (15:35)
[2021-09-28 16:00] VITALS: BP 146/97
[2021-09-28 16:30] VITALS: BP 140/95
[2021-09-28 17:30] VITALS: BP 144/98
[2021-09-28] MEDS ORDERED: HYDR-3715 PO (18:39)
[2021-09-29] MEDS ORDERED: LEVOTHYROXINE 50MCG TABLET (0.05MG) PO SCH (06:00)
--- NOTE | 2021-09-29 08:23 | RO ---
OPERATIVE NOTE DATE OF OPERATION: 09/28/2021 PREOPERATIVE DIAGNOSIS: Acute cholecystitis. POSTOPERATIVE DIAGNOSIS: Acute cholecystitis. PROCEDURE PERFORMED: Laparoscopic cholecystectomy. SURGEON: Uche Barrientos MD [id number] HANDLER: ANESTHESIA: General INDICATIONS FOR THE PROCEDURE: The patient is a 66-year-old man who had presented to the emergency department on the morning of the 27 of September with one night history of severe upper abdominal pain with repeated nausea and vomiting. He underwent a lengthy evaluation and stay in the emergency department during which he had a CT scan of the abdomen and pelvis and gallbladder ultrasound which both showed a distended gallbladder with some gallbladder wall thickening and pericholecystic edema. His history and findings were felt to be consistent with acute cholecystitis and he is now for laparoscopic cholecystectomy. DESCRIPTION OF PROCEDURE: The patient was brought to the operating room and placed on the table in a supine position. He was placed under general endotracheal anesthesia. The patient's abdomen was prepped and draped in a sterile fashion. 0.25% Marcaine was infiltrated at each of the trocar sites as needed. A short left upper quadrant incision was made and a Veress needle was inserted. After positive hanging drop test the abdomen was inflated with CO2 gas with pressure limit of 12 mmHg. After the abdomen was adequately inflated a 5 mm port was placed over the scope and advanced through the abdominal wall without difficulty. Initial examination showed a normal appearing liver. The gallbladder was evident and was clearly somewhat distended and thick walled and edematous. Some postoperative changes from his gastric bypass were identified with prominent small bowel loop representing his efferent limb and the anastomosis of the small bowel noted in the mid abdomen. An 11 mm port was placed just above the umbilicus through a short midline incision. Two 5 mm ports were placed in the right upper quadrant. The patient was tilted to a reverse Trendelenburg position and rolled slightly to the left. There were some adhesions of the omentum around the gallbladder, some of which appeared older and some were acute. The gallbladder was grasped and elevated and using the Hook cautery the adhesions were dissected away from the gallbladder. The gallbladder was then further elevated. I elected to aspirate the gallbladder to make manipulation of the gallbladder easier. An aspirating needle was inserted and some thick bile was aspirated with good decompression of the gallbladder. This clearly identified the marked thickening of the gallbladder wall. Some adhesions around the neck of the gallbladder were dissected free. The common bile duct was clearly identified exposed on the retroperitoneum. The area of the gallbladder neck was identified and dissection in this area identified the much shorter cystic duct. The cholecystic artery was also identified and dissected free. After both structures were clearly identified the cystic duct and cholecystic artery were doubly clipped with hemoclips and divided. The gallbladder was then dissected free the gallbladder bed using cautery dissection. The gallbladder was not perforated. There was some edema noted in the gallbladder wall during dissection. The gallbladder was placed in an Endopouch. The right upper quadrant was irrigated and some small bleeding points on the gallbladder bed were cauterized. After achieving excellent hemostasis final inspection showed no bleeding and no evidence of bile leak. The patient was returned to a flat position. The abdomen was deflated and the trocars were removed. The gallbladder was recovered through the supraumbilical incision which required extending the fascial incision slightly. The gallbladder was subsequently opened and there wer no definite stones identified within the gallbladder. The gallbladder was sent for permanent pathology. The fascia at the supraumbilical site was clearly identified and sutured with running suture of 2-0 PDS. The skin incisions were all closed with buried 4-0 Vicryl and Steri-Strips. Light dressings were applied. The patient tolerated the procedure well without apparent complication. He was awakened in the operating room, extubated and moved to the recovery room in stable condition.
[2021-09-29] MEDS ORDERED: OMEPRAZOLE 20 MG CAP PO SCH (09:00)
[2021-09-29] MEDS ORDERED: MYCOPHENOLATE MOFETIL 250 MG CAP (J7517) PO SCH (09:00)
[2021-09-29] MEDS ORDERED: ASPIRIN 325 MG TAB PO SCH (09:00)
== END 2021-09-28 19:45 | disposition home or self-care (01) ==
LOC: M ED 09:48 → M SDC 09:59 → ENRESERV 09-28 06:48 → M MS5PR 09-28 07:50 → M SDC 09-28 19:45
PROVIDERS: ATTEND Surgery
DX: K81.0 Acute cholecystitis (principal); K21.9 Gastro-esophageal reflux disease without esophagitis; I48.91 Unspecified atrial fibrillation; G47.33 Obstructive sleep apnea (adult) (pediatric); I10 Essential (primary) hypertension; Z98.84 Bariatric surgery status; Z79.82 Long term (current) use of aspirin; F41.9 Anxiety disorder, unspecified; F32.9 Major depressive disorder, single episode, unspecified; G70.00 Myasthenia gravis without (acute) exacerbation; E05.90 Thyrotoxicosis, unspecified without thyrotoxic crisis or storm; Z79.899 Other long term (current) drug therapy
CPT/HCPCS: 47562; 71275; 74177; 76705; 80048; 80076; 81001; 82550; 82553; 83690; 83735; 83880; 84484; 85025; 88304; 93005; 96365; 96366; 96375; 96376; 99285; C9113; J0131; J1100; J1885; J2250; J2270; J2405; J2543; J3010; Q9963; Q9967; U0002

== ENCOUNTER → 2022-04-07 | Outpatient (REF) | payer MEDICARE ==
[~2022-04-07] MED LIST changes: +HYDR-3715 PO; +LEVO50TA5 PO; +ONETAB9 PO
[2022-04-07 14:52] LABS: PERCENT SATURATION 45.3 % (19.7-50.0)
== END ==
LOC: M LAB REF 12:28
PROVIDERS: ATTEND Internal Medicine
DX: Z98.84 Bariatric surgery status (principal); Z98.890 Other specified postprocedural states

== ENCOUNTER → 2023-02-10 | Outpatient (REF) | payer MEDICARE ==
[2023-02-10 17:05] LABS: PERCENT SATURATION 26.4 % (19.7-50.0)
[2023-02-10 17:12] LABS: FOLATE 7.2 NG/ML (>5.4)
== END ==
LOC: M LAB REF 16:25
PROVIDERS: ATTEND Internal Medicine
DX: Z98.84 Bariatric surgery status (principal)

== ENCOUNTER 2023-06-08 08:00 | Day surgery (SDC) | payer MEDICARE ==
[~2023-06-08] VITALS: Ht 185.4 cm; Wt 116.2 kg
[~2023-06-08 08:00] MED LIST changes: +DILT180C70 PO; +ELIQ5TAB PO; +LEVO75TA4 PO; +NS 1,000 ML IV ONE
[2023-06-08] MEDS ORDERED: propofoL 200 MG/20 ML VIAL As Ordered ONE ×2 (08:07→09:29)
[2023-06-08 09:36] VITALS: TEMP 96.6
[2023-06-08 09:54] VITALS: BP 139/93; O2SAT 92
== END 2023-06-08 09:56 | disposition home or self-care (01) ==
LOC: M OPP 08:00
PROVIDERS: ATTEND Internal Medicine Gastroenterology
DX: Z86.010 Personal history of colon polyps (principal); K64.0 First degree hemorrhoids; K57.30 Diverticulosis of large intestine without perforation or abscess without bleeding; Z79.01 Long term (current) use of anticoagulants; Z79.1 Long term (current) use of non-steroidal anti-inflammatories (NSAID); Z79.890 Hormone replacement therapy; Z79.899 Other long term (current) drug therapy; Z91.048 Other nonmedicinal substance allergy status

== ENCOUNTER → 2024-10-17 | Outpatient (REF) | payer MEDICARE ==
[~2024-10-17] MED LIST changes: -NS 1,000 ML IV ONE
[2024-10-17 14:41] LABS: FERRITIN 27.3 NG/ML (10.5-307.3); FOLATE 7.9 NG/ML (>5.4); PERCENT SATURATION 29.9 % (19.7-50.0); PHOSPHORUS LEVEL 2.6 MG/DL (2.4-5.1); TOTAL 25(OH) VITAMIN D 18.4 NG/ML (20.0-100.0)
== END ==
LOC: M LAB REF 13:21
PROVIDERS: ATTEND Internal Medicine
DX: Z98.84 Bariatric surgery status (principal); Z79.899 Other long term (current) drug therapy

== ENCOUNTER → 2025-01-29 | Outpatient (CLI) | payer MEDICARE | LOC: M CARPUL 08:29 | PROVIDERS: ATTEND Internal Medicine | DX: I77.810 Thoracic aortic ectasia (principal) ==

== ENCOUNTER → 2025-06-12 | Outpatient (REF) | payer MEDICARE | LOC: M LAB REF 17:37 | PROVIDERS: ATTEND Internal Medicine | DX: Z01.84 Encounter for antibody response examination (principal) ==